=== PATIENT | female | born 1930 | race Caucasian/White ===

== ENCOUNTER 2017-07-02 13:15 | Inpatient (IN) | payer OTHER, MEDICARE ==
[~2017-07-02] VITALS: Ht 152.4 cm; Wt 46.7 kg
[~2017-07-02 13:15] MED LIST: AMIODARONE HCL200 M1 PO; ASPIRIN EC81 M1 PO; BUDESONIDE8.43 ML NASB; CILOSTAZOL50 M1 PO; COSOPT EYE DROP10 ML OU; FLEET ENEMA133 ML RC; GUAIFENESIN DM S5 ML PO; LATANOPROST2.5 ML OU; LIPITOR10 M1 PO; MILK OF MA400 MG/52 PO; MIRTAZAPINE15 M2 PO; NARCAN4 MG NAS; OMEPRAZOLE20 M2 PO; PREDNISONE2.5 M1 PO; SENNA8.6 M3 PO; SYNTHROID50 MCG PO
[2017-07-02] MEDS ORDERED: BETIMOL5 M1 OPH (14:28)
[2017-07-02] MEDS ORDERED: FLORASTOR250 M1 PO (14:29)
[2017-07-02] MEDS ORDERED: MELATONIN3 M4 PO (14:30)
[2017-07-02 14:52] LABS: ABSOLUTE BASOPHIL COUNT 0.2 /CUMM (0.0-0.2); ABSOLUTE EOSINOPHIL COUNT 0.1 /CUMM (0.0-0.7); ABSOLUTE GRANULOCYTE CT 7.7 /CUMM (1.4-6.5); ABSOLUTE LYMPH COUNT 3.7 /CUMM (1.2-3.4); ABSOLUTE MONOCYTE COUNT 0.4 /CUMM (0.10-0.60); BASOPHIL % 1.5 % (0.0-2.0); HEMATOCRIT 35.6 % (37-47); MEAN CORPUSCULAR HGB 29.1 PG (27.0-31.0); MEAN CORPUSCULAR HGB CONC 32.8 G/DL (33.0-37.0); MEAN CORPUSCULAR VOLUME 88.7 FL (81.0-99.0); MEAN PLATELET VOLUME 9.7 FL (7.4-10.4); PLATELET COUNT 170 /CUMM (130-400); RBC DISTRIBUTION WIDTH 16.9 % (11.5-14.5); RED BLOOD CELL CT 4.01 /CUMM (4.20-5.40); WHITE BLOOD CELL COUNT 12.1 /CUMM (4.8-10.8)
[2017-07-02 15:22] LABS: GRANULOCYTE % 63.6 % (42.2-75.2)
--- NOTE | 2017-07-02 15:25 | ED GENERAL ADULT ---
History of Present Illness General Chief Complaint: General Adult Stated Complaint: WEAKNESS Source: patient, W10 Exam Limitations: no limitations Vital Signs & Intake/Output Vital Signs & Intake/Output Vital Signs Date Time Temp Pulse Resp B/P B/P Pulse O2 O2 Flow FiO2 Mean Ox Delivery Rate 07/02 2042 97.0 72 18 118/60 96 Nasal 2.0L Cannula 07/02 2040 96 Room Air 2.0L 07/02 1827 96.8 60 18 115/57 99 Nasal 2.0L Cannula 07/02 1557 97.4 67 18 121/59 100 Nasal 2.0L Cannula 07/02 1459 96 Nasal 2.0L Cannula 07/02 1322 97.0 51 20 127/56 100 Nasal 2.0L Cannula Allergies Coded Allergies: NO KNOWN ALLERGIES (02/15/11) Reconcile Medications Amiodarone (Cordarone) 200 MG TABLET 1 TAB PO DAILY HEART (Reported) Aspirin (Ecotrin*) 81 MG TABLET.DR 1 TAB PO DAILY HEART/BLOOD (Reported) Atorvastatin Calcium (Lipitor) 10 MG TABLET 1 TAB PO DAILY CHOLESTEROL ( Reported) Cilostazol 50 MG TABLET 1 TAB PO BID BLOOD FLOW (Reported) Guaifenesin/Dextromethorphan (Guaifenesin Dm Syrup) 100 MG-10 MG/5 ML SYRUP 10 ML PO Q4H PRN COUGH/MUCUS (Reported) Latanoprost 0.005 % DROPS 1 GTT OU DAILY BOTH EYES (Reported) Levothyroxine Sodium (Synthroid) 50 MCG TABLET 1 TAB PO DAILY AC THYROID ( Reported) Magnesium Hydroxide (Milk Of Magnesia) 400 MG/5 ML ORAL.SUSP 30 ML PO Q3D PRN CONSTIPATION (Reported) Melatonin 3 MG TABLET 1 TAB PO QPM SLEEP (Reported) Mirtazapine 15 MG TABLET 1 TAB PO QPM UNKNOWN (Reported) Na Phos,M-B/Na Phos,Di-Ba (Fleet Enema) 19 GRAM-7 GRAM/118 ML ENEMA 1 E RC DAILY PRN CONSTIPATION (Reported) Naloxone HCl (Narcan) 4 MG/ACTUATION SPRAY 4 MG EDVIN AD PRN OPIOID INDUCED RESP. DEPRESSIO (Reported) Omeprazole 20 MG CAPSULE.DR 1 CAP PO DAILY GI (Reported) Prednisone 2.5 MG TABLET 1 TAB PO DAILY STEROID (Reported) Saccharomyces Boulardii (Florastor) 250 MG CAPSULE 1 CAP PO BID GI (Reported) Timolol (Betimol) 0.5 % DROPS 1 GTT OPH BID EYE (Reported) Triage Note: 86F DONI FROM [facility] WITH C/O WEAKNESS/FATIGUE/ABNORMAL LABS RECEIVING IVF AT [facility]. PATIENT ALERT/ORIENTED/NO PAIN Triage Nurses Notes Reviewed? yes HPI: 86yoF with Afib, hypothyroidism, HLD, GERD, Fe/Folate deficiencies and allergic rhnitis, brought here by her usp for poor feeding, weakness, fatigue and abnormal labs. Per W10, there was elevation in renal labs and so patient was started on D51/2NS at a total of 4L from 06/26 to 07/02. There was no improvement seen in serial labs. She has become more lethargic and started vomiting this afternoon. She had 2small BMs this morning. She also reports associated nausea and vomiting today. Patient herself reports loss of appetite, weight loss but no mental or memory changes. She denies any pain, fevers, but endorses chills. She is on ASA, Remeron, Naloxone, lipitor, prednisone, timolok, amiodarone, omeprazole, synthroid, melatonin and cilostazol. (Duran Cardenas) Past History Travel History Traveled to [place] past 21 day No Medical History Any Pertinent Medical History? see below for history Neurological: CVA Cardiovascular: AFIB, CAD, hyperlipidemia Gastrointestinal: constipation, GERD Musculoskeletal: rheumatoid arthritis Endocrine: hypothyroidism Other Medical Hx: Rheumatoid arthritis Surgical History Surgical History: appendectomy Psychosocial History Who do you live with Daughter Services at Home None What is your primary language Austrian Tobacco Use: Never used ETOH Use: denies use Illicit Drug Use: denies illicit drug use Family History Hx Contributory? Yes (Duran Cardenas) Review of Systems Review of Systems Constitutional: Reports: chills, weakness. Denies: diaphoresis, fever, malaise. EENTM: Reports: no symptoms. Respiratory: Reports: no symptoms. Cardiovascular: Reports: no symptoms. GI: Reports: no symptoms. Genitourinary: Reports: no symptoms. Musculoskeletal: Reports: see HPI. Skin: Reports: dryness. Neurological/Psychological: Reports: weakness. Denies: confusion, headache. Hematologic/Endocrine: Reports: bruising. Denies: bleeding. Immunologic/Allergic: Reports: no symptoms. (Duran Cardenas) Physical Exam Physical Exam General Appearance: alert, awake, cachetic Head: evidence of injury Eyes: Bilateral: normal appearance, PERRL. Neck: full range of motion Respiratory: normal breath sounds Cardiovascular: regular rate/rhythm Peripheral Pulses: 2+ radial (R), 2+ radial (L) Gastrointestinal: normal bowel sounds Extremities: no edema Skin: intact, warm/dry, ecchymosis Comments: Patient cachectic, slow in speech but very alert, A&Ox4. REst of exam significant for skin dryness, poor skin turgor, dry mucosal surfaces Core Measures ACS in differential dx? Yes CVA/TIA Diagnosis: No Sepsis Present: Yes Sepsis Focused Exam Completed? Yes (Opare-Sean STUDENT,Duran) Progress Differential Diagnoses I considered the following diagnoses in my evaluation of the patient: [ Malignancy, nephrotoxicity, starvation, cachexia, sepsis, UTI] Plan of Care: Orders Procedure Date/time Status XRY-CHEST XRAY, TWO VIEWS 07/02 2140 Active Add-on Test (ER Only) 07/02 1531 Active URINALYSIS 07/02 1531 Complete MISTAKE 07/02 1529 Active TSH REFLEX 07/02 1517 Complete TOTAL TRIODOTHYROXINE 07/02 1517 Complete FREE T4 07/02 1517 Complete TROPONIN LEVEL 07/02 1339 Complete COMPREHENSIVE METABOLIC PANEL 07/02 1339 Complete CBC WITHOUT DIFFERENTIAL 07/02 1339 Complete EKG 07/02 1339 Active Current Medications Sig/Delphien Start time Last Medication Dose Stop Time Status Admin Sodium Chloride 1,000 ML ONCE ONE 07/02 2014 AC 07/02 (Normal Saline 0.9%) 07/03 0254 2039 Laboratory Tests 07/02/17 1635: Urine Color YEL, Urine Clarity CLDY H, Urine pH 6.0, Ur Specific Brewer 1.025, Urine Protein 100 H, Urine Ketones NEG, Urine Nitrite NEG, Urine Bilirubin NEG, Urine Urobilinogen 0.2, Ur Leukocyte Esterase MOD H, Ur Microscopic SEDIMENT EXAMINED, Urine RBC 15-25 H, Urine WBC > 75 H, Ur Epithelial Cells RARE, Urine Bacteria FEW H, Micro UA Comment MORE INFO: H, Urine Hemoglobin LARGE H, Urine Glucose NEG 07/02/17 1517: Anion Gap 13, Estimated GFR 10 L, BUN/Creatinine Ratio 23.0, Glucose 113 H, Calcium 7.8 L, Total Bilirubin 0.5, AST 36, ALT 34, Alkaline Phosphatase 367 H , Troponin I 0.03, Total Protein 5.4 L, Albumin 2.1 L, Globulin 3.3, Albumin/ Globulin Ratio 0.6 L, Free T4 1.93, Total T3 0.41 L, TSH &T3 &Free T4 Intrp 9.820 H 07/02/17 1445: CBC w Diff NO MAN DIFF REQ, RBC 4.01 L, MCV 88.7, MCH 29.1, MCHC 32.8 L, RDW 16.9 H, MPV 9.7, Gran % 63.6, Lymphocytes % 30.3, Monocytes % 3.6, Eosinophils % 1.0, Basophils % 1.5, Absolute Granulocytes 7.7 H, Absolute Lymphocytes 3.7 H, Absolute Monocytes 0.4, Absolute Eosinophils 0.1, Absolute Basophils 0.2 Patient with weakness and a broad differential. Work up will begin with urinalysis, CMP, CBC, TSH, CXR. If renal function remains high, will consider renal US. 3:59PM CMP labs resulted. Cr 4.3 w/ BUN/Cr ratio >20, likely pre-renal injury. This is consistent w/ patient's exam of skin dryness, poor skin turgor, dry mucosal surfaces. Patient will require more resuscitation. Considering patient has failed outpatient resuscitation, patient will need to be admitted for gentle hydration (albeit more aggressive than 4L in 6days) and close monitoring. Nephrotoxic meds to be avoided. Patient will need renal imaging However, not all labs have returned. Once all labs result, patient will be signed out to admission team by Dr. Bobo. Care will be completely taken over by Dr. Bobo at this time. Initial ED [facility] Diagnostic Imaging: Discussed w/RAD: Ultrasound. Radiology Impression: PATIENT: SELAM VO PRESENT AGE: 86 PATIENT ACCOUNT NO: [id number] : 30 LOCATION: [facility] ORDERING PHYSICIAN: Alejandro Bobo MD SERVICE DATE: 07/02/178502 EXAM TYPE : US - US-RENAL/KIDNEY EXAMINATION: RENAL ULTRASOUND CLINICAL INFORMATION: Worsening renal function. COMPARISON: Abdominal pelvic CT from 12/25/2016. TECHNIQUE: Real-time imaging of the kidneys and bladder. FINDINGS: RIGHT KIDNEY: There is no nephrolithiasis. There is diffuse renal cortical thinning. There is mild pelviectasis and upper pole caliectasis. The right kidney measures 7.9 cm. LEFT KIDNEY: There is neither hydronephrosis nor nephrolithiasis. There is mild diffuse renal cortical thinning. There is a likely cyst within the lower pole measuring approximately 10 mm. The left kidney measures 7.7 cm. BLADDER: The urinary bladder is partially filled with a trabeculated bladder. OTHER: There is ascites noted within the right upper quadrant. There is a moderate left pleural effusion identified. There is also free fluid within the left upper quadrant. IMPRESSION: Right greater than left bilateral renal cortical thinning. Mild right pelviectasis and upper pole caliectasis. No nephrolithiasis within either kidney. Trabeculated urinary bladder which is partially filled. Abdominal ascites and left pleural effusion. DICTATED BY: Pedro Villagran MD DATE/TIME DICTATED:07/02/171818 CLIENT SUPPORT COORDINATOR:ISRAEL DATE/TIME TRANSCRIBED:1818 CONFIDENTIAL, DO NOT COPY WITHOUT APPROPRIATE AUTHORIZATION. < Electronically signed in Other Vendor System> SIGNED BY: Pedro Villagran MD 07/02/171824 Comments: 07/02/2017 8:13:37 PM I have updated Yvonne on her test results. She is without specific complaint at this time. (Jihan BLANCO,Alejandro Cortez) Departure Departure Condition: Stable Referrals: Tamar BLANCO,Pearl Roberson (PCP/Family) Departure Forms: Customer Survey General Discharge Information ([facility] Duran ARECHIGA) Departure Disposition: STILL A PATIENT Clinical Impression Primary Impression: JULES (acute kidney injury) Secondary Impressions: UTI (urinary tract infection) Qualifiers: Urinary tract infection type: site unspecified Hematuria presence: with hematuria Qualified Codes: N39.0 - Urinary tract infection, site not specified; R31.9 - Hematuria, unspecified Admission Note Spoke With: Elvira Grimes MD Documentation of Exam: Documentation of any treatments & extenuating circumstances including Concerns Regarding Discharge (functional status, medication knowledge or non-compliance, living conditions, etc.) that warrant an admission rather than observation: Patient has evidence of an acute kidney injury along with a urinary tract infection. She has been treated with 4 L of IV fluid as an outpatient and yet her renal functions continue to worsen. She has failed outpatient management and is therefore a poor candidate for continued outpatient treatment. This is now complicated by the presence of a urinary tract infection. Given the patient 's advanced age and medical comorbidities she is now at risk of sepsis, overwhelming infection and mortality. I feel she now requires hospitalization for more aggressive management with IV fluids and close clinical monitoring. Vital signs and intake and output should be recorded. BUN and creatinine should be monitored for signs of improvement. If patient's renal functions do not improve then nephrology and/or urology consultation should be considered. Serial urinalyses should be obtained and if patient's urinary tract infection does not seem to respond to initial antibiotic coverage, infectious disease consultation should be considered. Given this I feel this patient will require a multiple day hospitalization. (Jihan BLANCO,Alejandro Cortez) Critical Care Note Critical Care Note Critical Care Time: 30-74 min (Jihan BLANCO,Alejandro Cortez)
--- NOTE | 2017-07-02 18:25 | ULTRASOUND REPORT ---
EXAMINATION: RENAL ULTRASOUND CLINICAL INFORMATION: Worsening renal function. COMPARISON: Abdominal pelvic CT from 12/25/2016. TECHNIQUE: Real-time imaging of the kidneys and bladder. FINDINGS: RIGHT KIDNEY: There is no nephrolithiasis. There is diffuse renal cortical thinning. There is mild pelviectasis and upper pole caliectasis. The right kidney measures 7.9 cm. LEFT KIDNEY: There is neither hydronephrosis nor nephrolithiasis. There is mild diffuse renal cortical thinning. There is a likely cyst within the lower pole measuring approximately 10 mm. The left kidney measures 7.7 cm. BLADDER: The urinary bladder is partially filled with a trabeculated bladder. OTHER: There is ascites noted within the right upper quadrant. There is a moderate left pleural effusion identified. There is also free fluid within the left upper quadrant. IMPRESSION: Right greater than left bilateral renal cortical thinning. Mild right pelviectasis and upper pole caliectasis. No nephrolithiasis within either kidney. Trabeculated urinary bladder which is partially filled. Abdominal ascites and left pleural effusion.
--- NOTE | 2017-07-02 22:27 | History & Physical ---
Jose BLANCO,[facility] 07/02/17 5176: General Information and HPI MD Statement: I have seen and personally examined SELAM VO and documented this H&P. The patient is a 86 year old F who presented with a patient stated chief complaint of [n/v/diarrhea]. Source of Information: patient History of Present Illness: 86-year-old female past medical history of bilateral renal stenosis, Tricuspid stenosis, paroxysmal A. fib, rheumatoid arthritis, CAD S/P stent, HLD, hypothyroidism, CVA, GERD presenting for diarrhea, urinary incontinence, UTI, and vomiting. The patient states that she has been having diarrhea for 2 and half weeks. States that she was also informed by Dr. herrera that she had a UTI/ renal infection. States that she's been having IV fluids for the past 4 days supplementation. However the patient vomited at noon today was feeling nauseous. She states that she is been having increased bowel movements with more than 10 bowel movements per day on certain days. States that the last bowel movement was yesterday afternoon. States that her symptoms were getting better and now worse. Since that bowel movements are brownish yellow without any mucus or blood in his loose/watery. She states that she's been having decreased appetite at this time. She denies any headaches, fevers, chills, chest pain, shortness without abdominal pain, any sick contacts. The patient states that her last colonoscopy was 20 years ago and states that there were no issues. Allergies/Medications Allergies: Coded Allergies: NO KNOWN ALLERGIES (02/15/11) Past History Travel History Traveled to [place] past 21 day No Medical History Neurological: CVA Cardiovascular: AFIB, CAD, hyperlipidemia Gastrointestinal: constipation, GERD Musculoskeletal: rheumatoid arthritis Endocrine: hypothyroidism Other Medical Hx: Rheumatoid arthritis Surgical History Surgical History: appendectomy Past Family/Social History Psychosocial History Services at Home: None ETOH Use: denies use Illicit Drug Use: denies illicit drug use Review of Systems Review of Systems Constitutional: Reports: see HPI. GI: Reports: see HPI, changes in stool. Genitourinary: Reports: see HPI (urinary incontience). Exam & Diagnostic Data Last 24 Hrs of Vital Signs/I&O Vital Signs Date Time Temp Pulse Resp B/P B/P Pulse O2 O2 Flow FiO2 Mean Ox Delivery Rate 07/03 0559 96.9 60 16 116/49 99 Nasal 2.0L Cannula 07/03 0332 96 Nasal 2.0L Cannula 07/02 2212 128/58 07/023 97.0 72 18 118/60 96 Nasal 2.0L Cannula 07/02 2040 96 Room Air 2.0L 07/02 1827 96.8 60 18 115/57 99 Nasal 2.0L Cannula 07/02 1557 97.4 67 18 121/59 100 Nasal 2.0L Cannula 07/02 1459 96 Nasal 2.0L Cannula 07/02 1322 97.0 51 20 127/56 100 Nasal 2.0L Cannula Intake & Output 07/03 0800 07/03 0000 07/02 1600 Intake Total Output Total 70 180 Balance -70 -180 Output, Urine 70 180 Patient 93 lb Weight Weight Reported by Patient Measurement Method Physical Exam General Appearance Alert, Oriented X3, Cooperative, No Acute Distress Skin left forehead chronic discoloration HEENT dry oral mucosa Cardiovascular diastolic murmur Lungs Clear to Auscultation, Normal Air Movement Abdomen Normal Bowel Sounds, Soft, No Tenderness, mildly stiff abd upon palpation Extremities 2+ radial pulses Last 24 Hrs of Labs/Delmer: Laboratory Tests 07/03/17 0554: Anion Gap 11, Estimated GFR 10 L, BUN/Creatinine Ratio 23.8, Troponin I 0.04, CBC w Diff MAN DIFF ORDERED, RBC 3.55 L, MCV 89.1, MCH 29.3, MCHC 32.8 L, RDW 16.4 H, MPV 9.2, Segmented Neutrophils 66, Lymphocytes 28, Monocytes 4, Basophils 2, Platelet Estimate ADEQUATE, Polychromasia 1+, Hypochromic- Microcytic 1+, Poikilocytosis 2+, Ovalocytes 1+, Bruce Cells 1+, Fld Total RBCs Counted 100 07/03/17 0031: Troponin I 0.04 07/02/17 1635: Ur Eosinophil Smear Pending 07/02/17 1635: Urine Color YEL, Urine Clarity CLDY H, Urine pH 6.0, Ur Specific [place] 1.025, Urine Protein 100 H, Urine Ketones NEG, Urine Nitrite NEG, Urine Bilirubin NEG, Urine Urobilinogen 0.2, Ur Leukocyte Esterase MOD H, Ur Microscopic SEDIMENT EXAMINED, Urine RBC 15-25 H, Urine WBC > 75 H, Ur Epithelial Cells RARE, Urine Bacteria FEW H, Micro UA Comment MORE INFO: H, Urine Hemoglobin LARGE H, Urine Glucose NEG 07/02/17 1635: Ur Random Creatinine 76.4, Ur Random Sodium 26 L, Ur Random Potassium 33.2, Fraction Sodium Excret 1.0 07/02/17 1517: Anion Gap 13, Estimated GFR 10 L, BUN/Creatinine Ratio 23.0, Glucose 113 H, Calcium 7.8 L, Total Bilirubin 0.5, GGT 510 H, AST 36, ALT 34, Alkaline Phosphatase 367 H, Troponin I 0.03, Total Protein 5.4 L, Albumin 2.1 L, Globulin 3.3, Albumin/Globulin Ratio 0.6 L, Free T4 1.93, Total T3 0.41 L, TSH &T3 &Free T4 Intrp 9.820 H 07/02/17 1445: CBC w Diff NO MAN DIFF REQ, RBC 4.01 L, MCV 88.7, MCH 29.1, MCHC 32.8 L, RDW 16.9 H, MPV 9.7, Gran % 63.6, Lymphocytes % 30.3, Monocytes % 3.6, Eosinophils % 1.0, Basophils % 1.5, Absolute Granulocytes 7.7 H, Absolute Lymphocytes 3.7 H, Absolute Monocytes 0.4, Absolute Eosinophils 0.1, Absolute Basophils 0.2 Microbiology 07/039 URINE ROUT: Urine Culture - COLB 07/02 2338 URINE ROUT: Urine Culture - COLB 07/02 2324 STOOL: Cryptosporidium Antigen - COLB 07/02 2324 STOOL: Giardia Antigen (DELMER) - COLB 07/02 2324 STOOL: Clostridium difficile Toxin A & B - COLB 07/02 2324 STOOL: Yersinia Culture - COLB 07/02 2324 STOOL: Stool Culture - COLB 07/02 1634 URINE ROUT: Urine Culture - RECD Assessment/Plan Assessment: A: 86-year-old female past medical history of bilateral renal stenosis, Tricuspid stenosis, paroxysmal A. fib, rheumatoid arthritis, CAD S/P stent, HLD, hypothyroidism, CVA, GERD presenting for diarrhea, urinary incontinence, UTI, and vomiting. P: #Diarrhea -monitor I/Os -Follow-up stool studies #junctional rhythm on ekg Troponins 0.03, .04, .04 -Serial troponin and EKG -Cardiology consult -Echocardiogram #JULES on CKD Cr 4.2-4.8 (baseline 3.0) Pt is incontinent of urine Has bilateral renal artery stenosis -Serial bladder scans as patient refuses Menard -Follow-up urine culture lites, eosinophils -Nephrology consult -Consider vascular consult if recommended by nephrology #UTI -Continue ceftriaxone -Follow-up panculture #hypothyrodism Elevated tsh -consider endo consult or increase levothyroxine -cont levothyropxine #elevated alp ALP and GGT elevated -cont to monitor #insomnia -cont Mirtazapine/ Melatonin #glaucoma -cont Latanoprost/timolol #hld -cont Atorvastatin #RA -cont Prednisone #paraxysymbal afib -cont Aspirin/ amiodarone #gerd -cont omeprazole #DVT prophylaxis -heparin subq #DNRI DNI As Ranked By This Provider Problem List: 1. Elevated alkaline phosphatase level 2. Hypothyroid 3. JULES (acute kidney injury) 4. UTI (urinary tract infection) 5. EKG abnormality 6. Diarrhea Core Measures/Misc (01/20) Acute Coronary Syndrome ACS Diagnosis: No Congestive Heart Failure Congestive Heart Failure Diagnosis No Cerebrovascular Accident CVA/TIA Diagnosis: No VTE (View Protocol) VTE Risk Factors Acute Medical Illness No Mechanical VTE Prophylaxis d/t Other No VTE Pharm Prophylaxis d/t NA PharmProphylax ordered Sepsis (View protocol) Sepsis Present: No Marie Cervantes 07/02/178: General Information and HPI Allergies/Medications Home Med list Amiodarone (Cordarone) 200 MG TABLET 1 TAB PO DAILY HEART (Reported) Aspirin (Ecotrin*) 81 MG TABLET.DR 1 TAB PO DAILY HEART/BLOOD (Reported) Atorvastatin Calcium (Lipitor) 10 MG TABLET 1 TAB PO DAILY CHOLESTEROL ( Reported) Cilostazol 50 MG TABLET 1 TAB PO BID BLOOD FLOW (Reported) Guaifenesin/Dextromethorphan (Guaifenesin Dm Syrup) 100 MG-10 MG/5 ML SYRUP 10 ML PO Q4H PRN COUGH/MUCUS (Reported) Latanoprost 0.005 % DROPS 1 GTT OU DAILY BOTH EYES (Reported) Levothyroxine Sodium (Synthroid) 50 MCG TABLET 1 TAB PO DAILY AC THYROID ( Reported) Magnesium Hydroxide (Milk Of Magnesia) 400 MG/5 ML ORAL.SUSP 30 ML PO Q3D PRN CONSTIPATION (Reported) Melatonin 3 MG TABLET 1 TAB PO QPM SLEEP (Reported) Mirtazapine 15 MG TABLET 0.5 TAB PO QPM APPETITE (Reported) Na Phos,M-B/Na Phos,Di-Ba (Fleet Enema) 19 GRAM-7 GRAM/118 ML ENEMA 1 E RC DAILY PRN CONSTIPATION (Reported) Naloxone HCl (Narcan) 4 MG/ACTUATION SPRAY 4 MG EDVIN AD PRN OPIOID INDUCED RESP. DEPRESSIO (Reported) Omeprazole 20 MG CAPSULE.DR 1 CAP PO DAILY GI (Reported) Prednisone 2.5 MG TABLET 1 TAB PO DAILY RA (Reported) Saccharomyces Boulardii (Florastor) 250 MG CAPSULE 1 CAP PO BID GI (Reported) Timolol (Betimol) 0.5 % DROPS 1 GTT OPH BID EYE (Reported) Resident Review Statement Resident Statement: examined this patient, discussed with fashion styling intern, agreed with fashion styling intern, discussed with family, reviewed EMR data (avail), discussed with nursing , discussed with case mgmt, reviewed images, amended to note Other Findings: 87-year-old female with a past medical history of A. fib, [place] status post PCI hypothyroidism, hyperlipidemia, GERD, rheumatoid arthritis iron/folate deficiencies brought in by nursing facility for decreased by mouth intake, weakness fatigue and abnormal labs. According to the W-[facility], her renal panel was off as started on D51/2NS at a total of 4L from 06/26 to 07/02. There was no improvement seen in serial labs. She has become more lethargic and started vomiting this afternoon. Speaking with the patient reveals that she's been having diarrhea for almost 2 weeks now. States that was on an average about 10 bowel movements on a daily basis. She apparently had blood work done that showed that her kidney function had worsened. There is also concern that she may have had a urinary tract infection? Apparently she was given IV fluids and her symptoms didn't get better. She also endorses being more lethargic and states that this morning had an episode of emesis that was nonbloody. She denies any burning sensation when she micturates and doesn't endorse urinary frequency. She denies any fevers, chills, headache, chest pain, shortness of breath, nausea, vomiting. She states that her diarrhea was loose, midway between being watery versus loose. Denies any blood or mucus in it. Vitals at the time of admission blood pressure 118/60, respiratory rate of 18, pulse 72, afebrile saturating 96% on 2 L of oxygen via nasal cannula. On physical exam she is alert, oriented times 1. HEENT revealed dry mucous membranes. Cardiovascular exam pertinent for a diastolic murmur, normal S1, S2. Auscultation of the chest revealed crepitus at the left lung base. Abdominal exam pertinent for an abdominal was slightly firm, mildly distended with normal bowel sounds in all 4 quadrants. Examination of the lower extremities did not reveal any edema, patient did have a stage II ulcer on her back. Labs pertinent for leukocytosis with a white blood cell count 12,100, normocytic anemia with an H&H of 11.7/35.6 and a platelet count 170,000. Serum chemistries pertinent for sodium of 141, hyperkalemia with a potassium of 5.2, a low bicarbonate of 11, anion gap of 13, BUN 19 and creatinine of 4.3 baseline creatinine around 1.8-2. Serum glucose 113, calcium 7.8. LFTs pertinent for total bili 0.5, AST/L2 36/34, alkaline phosphatase of 367, first set of troponin 0.03. T3 was 0.41 TSH 9.8; pT4 1.93. UA cloudy, positive for proteins, moderate amount of leukocyte esterase, more than 75 white blood cells. Renal ultrasound showed right greater than left bilateral renal cortical thickening, mild right Mild right pelviectasis and upper pole caliectasis. No nephrolithiasis within either kidney. Trabeculated urinary bladder which is partially filled. Abdominal ascites and left pleural effusion. EKG heart rate of 54, questionable accelerated junctional rhythm with an old left bundle branch block, low voltage, normal axis no ST-T changes. QTC was 464. Chest x-ray: Retrocardiac opacification with obscuration of the left hemidiaphragm. The appearance is concerning for a left lower lobe infiltrate. A small left pleural effusion cannot be excluded. Last echo showed an EF of 55-60%. The left ventricular chamber size is normal with borderline to mild left ventricular hypertrophy and disproportionate thickening of the upper interventricular septum (DUST). The ejection fraction is normal. Abnormal septal motion is present due to the presence of pulmonary hypertensi In the ER patient received a bolus of normal saline thousand milligrams 1 and ceftriaxone thousand milligrams IV 1. Assessment and plan Admit patient to telemetry given junctional rhythm #JULES Differentials at this point include obstructive uropathy given history of bilateral hydronephrosis and ureteric stent placements, with an element of prerenal as a team secondary to dehydration Hydrate with normal saline at 75 miles per hour Continue to monitor strict I's and O's Nephrology consultation a.m. as patient does have a history of renal artery stenosis. We'll consult them and get their opinion as to whether we should get vascular and mold for stent placements. Meanwhile avoid nephrotoxic agents Follow-up urine lites #Hypothyroidism Consider increasing levothyroxine 75 MCG daily In the setting off being on amiodarone secondary to its toxicity Of note her TSH is 9.8 #Hyperkalemia In the setting of renal insufficiency Follow-up repeat BP at 6 AM after hydration with IV fluids #Diarrhea Send for stool culture, stool for C. difficile toxin, ova and parasites and crypto #Urinary tract infection She already received IV ceftriaxone in the ER. We'll continue on ceftriaxone thousand milligrams daily Follow-up urine culture #Junctional arrhythmia Continue to trend troponins and EKG Echocardiogram in a.m. Cardiology consult in a.m. with Dr. Pond #Rheumatoid arthritis Continue prednisone 2.5 mg daily by mouth #Decreased by mouth intake Continue mirtazapine 7.5 mg at bedtime #Peripheral vascular disease Continue on cilostazol 50 mg twice a day by mouth #A. fib Continue amiodarone 200 mg daily DVT prophylaxis On heparin 5000 international unit 3 times a day subcutaneous Diet Heart healthy CODE STATUS DNR/DNI Elvira Grimes 07/03/17 0522: Attending MD Review Statement Attending Statement Attending MD Statement: examined this patient, discuss w/resident/PA/SYRUPER, agreed w/resident/PA/SYRUPER, reviewed EMR data (avail), reviewed images, amended to note Attending Assessment/Plan: CC: Elevated creatinine PMH: Tricuspid stenosis, paroxysmal A. fib, rheumatoid arthritis, CAD S/P stent, HLD, hypothyroidism, CVA, GERD According to patient she has been having diarrhea since last 2 and half weeks, at 10 bowel movement per day, watery, nonbloody. She was started on IV fluids at [facility] and according to chart patient received 4 L of D5 1/2NS from Jun 26 to . Patient had serial labs done and her creatinine was persistently elevated so patient was sent to ER. Today patient appeared more lethargic to staff in facility. According to patient she felt nauseous and had 1 episode of vomiting today. She had been having decreased appetite, urinary incontinence but denies any sick contacts, URI symptoms, chest pain, palpitations, chest tightness, abdominal pain, leg swellings, dizziness or loss of consciousness. She states that she fell forward and hit her head approximately 3 days back from which she had bruise on her forehead. But at that time she does not recall if she lost consciousness or felt dizzy. Patient complains of urinary burning. Vitals: Afebrile, pulse in 60s, RR 18, blood pressure 121/59, saturating well on 2 L nasal cannula. On exam: A O 3, cooperative, no acute distress, neck supple, JVD normal, no lymphadenopathy, mucosa dry, no focal neurological deficit, no dependent edema, no obvious skin rashes or inflammation, bruise on for head on left side, left hand deformity, CVS: S1-S2, RRR, 2/6 pasasternal diastolic murmur. RS: Clear to auscultate bilaterally. Abdomen: Soft, NT, ND, bowel sounds present. Renal ultrasound: Right greater than left bilateral renal cortical thinning. Mild right pelviectasis and upper pole caliectasis. No nephrolithiasis within either kidney. Trabeculated urinary bladder which is partially filled. Abdominal ascites and left pleural effusion. CXR: Retrocardiac opacification with obscuration of the left hemidiaphragm. The appearance is concerning for a left lower lobe infiltrate. A small left pleural effusion cannot be excluded. Recommendation is for a followup chest series to be obtained following treatment and/or resolution of symptoms to assure resolution of this appearance. Assessment and plan 86 year old female with multiple comorbidities was sent to ER from [facility] for elevated creatinine. Patient had been having diarrhea since last 2 and half weeks, watery, at time : 10 per day. She denies any abdominal cramping but had an episode of vomiting today with nausea. She appeared more lethargic to staff in [facility]. Patient was being treated with IV fluids in [facility] and labs weren't repeated today which showed persistently elevated creatinine so patient was sent to ER. On examination she has small bruise on left side of her forehead and patient states that she slumped over on the table while sitting but did not lose consciousness or felt dizzy before the fall. Abdomen is mildly distended but nontender, no significant peripheral edema or JVD. Patient has mild leukocytosis. Her creatinine is 4.3, significantly elevated as compared to 2.8 on June 28. Before that she had 1.8 of creatinine in November 2016. Potassium is 5.2 and has metabolic acidosis with bicarbonate of 11. This could be acute kidney injury on chronic kidney disease secondary to dehydration. This could be progression of chronic kidney disease itself. Etiology is unclear but patient had CT angiogram runoff in November 2016 when she was noted to have bilateral severe renal artery stenosis and severe bilateral femoropopliteal tibial vessel disease. Given her acidosis secondary to acute kidney injury along with mildly elevated potassium she would require telemetry monitoring. Furthermore she had episode of " slumped over" , which would require telemetry monitoring. ECG shows junctional rhythm versus artifact. JULES versus CKD requires further evaluation. Obstruction is ruled out with renal ultrasound + Acute kidney injury on chronic kidney disease + UTI cystitis + Chronic diarrhea + History of Tricuspid stenosis, paroxysmal A. fib, rheumatoid arthritis, CAD S/ P stent, HLD, hypothyroidism, CVA, GERD - Admit to telemetry - Continuous telemetry monitoring - Strict I's and O's - Bladder scan - Urine electrolytes - Urine Eosinophils - 2-D echocardiogram - Normal saline 75 mL per hour for 1 more liter - Patient may require bicarbonate supplementation, if no improvement with IV fluids - Nephrology consult - Consider vascular consult for bilateral severe renal artery stenosis if recommended by stone lathe operator - Obtain stool studies including C. difficile - Continue IV ceftriaxone for UTI - Follow up urine culture - OT PT evaluation - Continue all her home medications - Cardiology consult in a.m. : ? Junctional rhythm - DVT prophylaxis
--- NOTE | 2017-07-02 22:50 | RADIOLOGY REPORT ---
EXAMINATION: CHEST 1 VIEW CLINICAL INFORMATION: Pleural effusion. COMPARISON: 12/25/2016. TECHNIQUE: An AP view of the chest is provided. FINDINGS: The cardiac silhouette is stable. The mediastinal and hilar contours are unremarkable. There are no pneumothoraces. There is retrocardiac opacification with obscuration of the left hemidiaphragm. The osseous structures are stable. IMPRESSION: Retrocardiac opacification with obscuration of the left hemidiaphragm. The appearance is concerning for a left lower lobe infiltrate. A small left pleural effusion cannot be excluded. Recommendation is for a followup chest series to be obtained following treatment and/or resolution of symptoms to assure resolution of this appearance.
--- NOTE | 2017-07-03 05:24 | Admission Certification ---
Admission Certification Certification Statement - As attending physician, I certify that at the time of - admission, based on clinical presentation, severity of - symptoms, need for further diagnostic testing and - therapeutic interventions, and risk of adverse outcomes - without in-hospital treatment, in my clinical assessment, - this patient requires an acute hospital stay for a minimum - of two nights or longer. I have also considered psychsocial - factors such as support system, advanced age, financial - issues, cognitive issues, and failed out-patient treatments, - past re-admission history, safety of patient, and lack of - compliance as applicable. Specific rationale supporting this admission is: acute kidney injury on chronic kidney disease
[2017-07-03 06:07] LABS: HEMATOCRIT 31.6 % (37-47); MEAN CORPUSCULAR HGB 29.3 PG (27.0-31.0); MEAN CORPUSCULAR HGB CONC 32.8 G/DL (33.0-37.0); MEAN CORPUSCULAR VOLUME 89.1 FL (81.0-99.0); MEAN PLATELET VOLUME 9.2 FL (7.4-10.4); PLATELET COUNT 132 /CUMM (130-400); RBC DISTRIBUTION WIDTH 16.4 % (11.5-14.5); RED BLOOD CELL CT 3.55 /CUMM (4.20-5.40); WHITE BLOOD CELL COUNT 13.5 /CUMM (4.8-10.8)
--- NOTE | 2017-07-03 07:16 | PN- Housestaff ---
Antonio BLANCO,[facility] 07/03/17 0716: Subjective Follow-up For: Jules on CKD ?? UTI/cystitis Metabolic acidosis Chronic Diarrhea Junctional rhythm on EKG Elevated alkaline phosphatase and GGT Tele-Events Since Last Visit: No overnight events noted Subjective: Patient lying comfortably in bed, daughter at bedside and according to her she feels better compared to yesterday. Denies any chest pain, palpitations, shortness of breath, abdominal pain, or any urinary symptoms. Stools were formed this morning compared to before. Review of Systems Constitutional: Reports: malaise, weakness. EENTM: Reports: no symptoms. Cardiovascular: Reports: no symptoms. Respiratory: Reports: no symptoms. Gastrointestinal: Reports: diarrhea. Genitourinary: Reports: no symptoms. Musculoskeletal: Reports: no symptoms. Skin: Reports: no symptoms. Neurological/Psychological: Reports: no symptoms. Hematologic/Endocrine: Reports: no symptoms. Immunologic/Allergic: Reports: no symptoms. Objective Last 24 Hrs of Vital Signs/I&O Vital Signs Date Time Temp Pulse Resp B/P B/P Pulse O2 O2 Flow FiO2 Mean Ox Delivery Rate 07/03 1350 90/40 07/03 1236 97.4 68 18 80/40 93 Room Air 07/03 1041 98.2 88 18 136/88 07/03 1040 98.2 88 18 136/88 99 Nasal 2.0L Cannula 07/03 0559 96.9 60 16 116/49 99 Nasal 2.0L Cannula 07/03 0332 96 Nasal 2.0L Cannula 07/02 2212 128/58 07/02 2043 97.0 72 18 118/60 96 Nasal 2.0L Cannula 07/02 2040 96 Room Air 2.0L 07/02 1827 96.8 60 18 115/57 99 Nasal 2.0L Cannula 07/02 1557 97.4 67 18 121/59 100 Nasal 2.0L Cannula Intake & Output 07/03 1600 07/03 0800 07/03 0000 Intake Total 500 Output Total 70 70 180 Balance 430 -70 -180 Intake, IV 500 Output, Urine 70 70 180 Patient 98 lb Weight Weight Estimated Measurement Method Physical Exam General Appearance: Alert, Oriented X3, Cooperative, No Acute Distress Skin: No Rashes, No Breakdown Cardiovascular: Regular Rate, Normal S1, Normal S2 Lungs: Clear to Auscultation, Normal Air Movement Abdomen: Normal Bowel Sounds, Soft, No Tenderness Extremities: No Clubbing, No Cyanosis, No Edema, slightly cool to touch Current Medications: Current Medications Sig/Delphine Start time Last Medication Dose Route Stop Time Status Admin Amiodarone HCl 200 MG DAILY 07/03 1000 AC 07/03 PO 1041 Aspirin Buffered 81 MG DAILY 07/03 1000 AC 07/03 PO 1041 Atorvastatin Calcium 10 MG 1700 07/03 1700 AC PO Ceftriaxone Sodium 1,000 MG Q24H 07/03 2030 AC IV Ceftriaxone Sodium 0 .STK-MED ONE 07/02 2033 DC .ROUTE Ceftriaxone Sodium 1,000 MG ONCE ONE 07/02 2014 DC 07/02 IV 07/02 2015 203 Cilostazol 50 MG BID 07/02 232 AC 07/03 PO 1041 Dextrose/Sodium 1,000 ML Q13H 07/03 1200 AC Chloride IV Heparin Sodium 0 .STK-MED ONE 07/03 0608 DC (Porcine) .ROUTE Heparin Sodium 5,000 UNIT Q8 07/03 0600 AC 07/03 (Porcine) SC 0615 Hydrocortisone 50 MG Q8 07/03 2200 AC Sodium Succinate IV Hydrocortisone 100 MG ONE ONE 07/03 1400 DC Sodium Succinate IV 07/03 1401 Latanoprost 1 GTT AT BEDTIME 07/03 2200 AC OPH Levothyroxine Sodium 0.05 MG DAILY AC 07/03 0700 AC 07/03 PO 0757 Melatonin 3 MG QPM 07/03 2200 AC PO Mirtazapine 7.5 MG QPM 07/03 2200 AC PO Omeprazole 20 MG DAILY AC 07/03 0700 AC 07/03 PO 0615 Omeprazole 0 .STK-MED ONE 07/03 0608 DC PO Prednisone 2.5 MG DAILY 07/03 1000 DC 07/03 PO 1041 Sodium Chloride 500 ML BOLUS ONE 07/03 1330 DC IV 07/03 1429 Sodium Chloride 1,000 ML Q13H 07/02 2330 AC 07/03 IV 07/04 0129 0011 Sodium Chloride 1,000 ML ONCE ONE 07/02 2014 DC 07/02 IV 07/03 0254 2039 Timolol Maleate 1 GTT BID 07/02 2324 AC 07/03 OPH 1041 Last 24 Hrs of Lab/Delmer Results Last 24 Hrs of Labs/Mics: Laboratory Tests 07/03/17 0554: Anion Gap 11, Estimated GFR 10 L, BUN/Creatinine Ratio 23.8, Troponin I 0.04, Cortisol AM Sample 7.8, CBC w Diff MAN DIFF ORDERED, RBC 3.55 L, MCV 89.1, MCH 29.3, MCHC 32.8 L, RDW 16.4 H, MPV 9.2, Segmented Neutrophils 66, Lymphocytes 28, Monocytes 4, Basophils 2, Platelet Estimate ADEQUATE, Polychromasia 1+, Hypochromic-Microcytic 1+, Poikilocytosis 2+, Ovalocytes 1+, Antelope Cells 1+, Fld Total RBCs Counted 100 07/03/17 0031: Troponin I 0.04 07/02/17 1635: Ur Eosinophil Smear OCC EOS SEEN 07/02/17 163: Urine Color YEL, Urine Clarity CLDY H, Urine pH 6.0, Ur Specific [place] 1.025, Urine Protein 100 H, Urine Ketones NEG, Urine Nitrite NEG, Urine Bilirubin NEG, Urine Urobilinogen 0.2, Ur Leukocyte Esterase MOD H, Ur Microscopic SEDIMENT EXAMINED, Urine RBC 15-25 H, Urine WBC > 75 H, Ur Epithelial Cells RARE, Urine Bacteria FEW H, Micro UA Comment MORE INFO: H, Urine Hemoglobin LARGE H, Urine Glucose NEG 07/02/17 163: Ur Random Creatinine 76.4, Ur Random Sodium 26 L, Ur Random Potassium 33.2, Fraction Sodium Excret 1.0 Microbiology 07/03 145 BLOOD: Blood Culture - ORD 07/03 145 BLOOD: Blood Culture - ORD 07/03 0049 URINE ROUT: Urine Culture - CAN Cancelled: DUPLICATE 07/02 2338 URINE ROUT: Urine Culture - CAN Cancelled: DUPLICATE 07/02 2324 STOOL: Cryptosporidium Antigen - CAN Cancelled: SPECIMEN NOT RECEIVED IN LABORATORY 07/02 2324 STOOL: Giardia Antigen (DELMER) - CAN Cancelled: SPECIMEN NOT RECEIVED IN LABORATORY 07/02 2324 STOOL: Clostridium difficile Toxin A & B - CAN Cancelled: SPECIMEN NOT RECEIVED IN LABORATORY 07/02 2324 STOOL: Yersinia Culture - CAN Cancelled: SPECIMEN NOT RECEIVED IN LABORATORY 07/02 2324 STOOL: Stool Culture - CAN Cancelled: SPECIMEN NOT RECEIVED IN LABORATORY 07/02 1634 URINE ROUT: Urine Culture - RECD Assessment/Plan Assessment: 86-year-old female past medical history of bilateral renal stenosis, Tricuspid stenosis, paroxysmal A. fib, rheumatoid arthritis, CAD S/P stent, HLD, hypothyroidism, CVA, GERD presenting for diarrhea, urinary incontinence, UTI, and vomiting. Problem list JULES on CKD ?? UTI/cystitis Metabolic acidosis Chronic Diarrhea Junctional rhythm on EKG Elevated alkaline phosphatase and GGT - JULES likely secondary to dehydration . Obstruction ruled out and CAT scan. Patient likely a candidate for dialysis in the future but risks outweigh the benefits. - Continue IV fluids. Patient was given 500 mV of normal saline because of persistent hypertension, also patient was given stress dose of hydrocortisone per endocrinology as the patient is on prednisone at home for rheumatoid arthritis. Random cortisol level is 7.8. Will continue hydrocortisone 50 mg every 8 from tomorrow. - Continue IV ceftriaxone for presumed UTI. - Urine culture pending - We'll check lactic acid level and order blood cultures given patient has metabolic acidosis and is hypotensive despite IV fluid hydration. - Continue current dose of levothyroxine. -Follow-up stool studies - CT abdomen pelvis for elevated alkaline phosphatase and GGT. - Echocardiogram pending - Vascular surgery consult for ischemic right foot. DVT prophylaxis; subcutaneous heparin Patient is DNRI DNI. Problem List: 1. Elevated alkaline phosphatase level 2. Hypothyroid 3. UTI (urinary tract infection) 4. JULES (acute kidney injury) 5. EKG abnormality 6. Diarrhea 7. Rheumatoid arthritis Pain Ratin Pain Location: None Pain Goal: Remain pain free Pain Plan: None Tomorrow's Labs & Rationales: BEP(JULES on CKD) [facility] 07/03/17 1545: Attending MD Review Statement Attending Statement Attending MD Statement: examined this patient, discuss w/resident/PA/CHIMNEY REPAIRER, agreed w/resident/PA/CHIMNEY REPAIRER, discussed with family, reviewed EMR data (avail), discussed with nursing, discussed with case mgmt, amended to note Attending Assessment/Plan: Patient seen and examined. Lying in bed and very frail looking. Daughter present at the bedside. She complains of generalized weakness. She complains of right lower extremity pain which is chronic for her. She has had no diarrhea while being here in the hospital. She denies chest pain or shortness of breath or palpitations. She is afebrile. Blood pressure was stable on arrival however has been trending into the 80s and 90s. General appearance: Frail HEENT: Anicteric, mild pallor Neck: No JVD. Heart: S1-S2 regular with 2/6 systolic murmur. Lungs: Fair entry bilaterally with no added sounds. Abdomen: Soft, nontender with normal bowel sounds. Extremities: No pedal edema bilaterally. Right lower extremity is cool to touch. She has a bluish discoloration on the fifth digit of the right foot. Skin: Intact with no rashes. November 15, 2016. CT RUNOFF ANGIOGRAM 1. Possible bladder calculi. 2. There is a right-sided double-J ureteral catheter. 3. There are bilateral severe renal artery stenoses. 4. There is severe bilateral qsfyyoy-jqtanfmaj-mmvvav vessel disease. Problems: 1. Acute on chronic kidney disease 2. Leukocytosis; with concern for underlying infection. 3. Abnormal EKG. 4. Ischemic right lower extremity. 5. Adrenal insufficiency. Plan: -Current renal disease appears to be secondary to volume depletion from prolonged diarrhea at the halfway. Patient also likely has some underlying infectious process and he is hypotensive which may lead to an ATN. There is also concern for interstitial nephritis due to multiple antibiotic use. Nephrology input appreciated. The brief concise summary provided by the nephrology service ,of the outcomes of halfway resident who undergo dialysis, is appreciated. -Patient was started empirically on ceftriaxone and emergency room for presumed UTI. In view of her poor clinical state and leukocytosis we will continue current antibiotic therapy pending results of blood and urine cultures. -Patient is hypotensive. Volume depletion is certainly within differential. Also within the differential is an underlying infection. Patient's cortisol level is suboptimal giving her acute illness. She appears to have a component of adrenal insufficiency. She has been on prolonged steroid therapy. She has been given a stress dose of hydrocortisone and will be continued on this over the next few days. -Patient also has an ischemic right foot. Apparently daughter reports that provider in the outpatient setting had recommended amputation of the right lower extremity back in the summer 2016. Daughter declined to move forward with this at the time. I did explain that this will need to be reconsidered. She is agreeable to hear the recommendations of the vascular surgery service. Consultation has been placed. Hold off vascular imaging for now pending evaluation by the vascular surgery service. -Obtain x-ray of the right foot to rule out underlying osteomyelitis. -Cardiology input appreciated regarding her abnormal EKG. Patient and daughter report that patient was taken off anticoagulation therapy in the past. Obtain echocardiogram.
--- NOTE | 2017-07-03 11:04 | Cons- Nephrology ---
General Information and HPI Consulting Request Date of Consult: 07/03/17 Requested By: Griselda Vila MD Reason for Consult: Acute kidney injury Source of Information: patient, family, old records Exam Limitations: no limitations History of Present Illness: This 86-year-old woman has a history of colitis, peptic ulcer disease, coronary artery disease requiring stents as well as chronic kidney disease. She now presents with 2 weeks worth of diarrhea. Because the diarrhea remains obscure. She had been laced on the number of medications the reason for which her daughter is not sure. She resides at [facility]. Her serum creatinine on June 26 was 3.0. When she presented to the emergency room, it was 4.2. She denies any dysuria or polyuria. That of which she complains is profuse diarrhea. She denies any fevers chills or rashes. She has not had any dysuria. They're not sure what antibiotics she has been receiving. She also has a history of myelodysplastic syndrome. She also has a history of severe peripheral vascular disease. Because of problems with her right lower extremity , a CT angiogram with runoff have been ordered last November. It is recommended to the patient and her family that she undergo an amputation presumably below knee of that right leg. The patient and daughter declined since they felt that since it was not bothering the patient they would not proceed with that surgery. She has not had any fevers or chills. There is been no rashes noted. Examining the record from [facility], I do not see which antibiotic she was receiving. Allergies/Medications Allergies: Coded Allergies: NO KNOWN ALLERGIES (02/15/11) Home Med List: Amiodarone (Cordarone) 200 MG TABLET 1 TAB PO DAILY HEART (Reported) Aspirin (Ecotrin*) 81 MG TABLET.DR 1 TAB PO DAILY HEART/BLOOD (Reported) Atorvastatin Calcium (Lipitor) 10 MG TABLET 1 TAB PO DAILY CHOLESTEROL ( Reported) Cilostazol 50 MG TABLET 1 TAB PO BID BLOOD FLOW (Reported) Guaifenesin/Dextromethorphan (Guaifenesin Dm Syrup) 100 MG-10 MG/5 ML SYRUP 10 ML PO Q4H PRN COUGH/MUCUS (Reported) Latanoprost 0.005 % DROPS 1 GTT OU DAILY BOTH EYES (Reported) Levothyroxine Sodium (Synthroid) 50 MCG TABLET 1 TAB PO DAILY AC THYROID ( Reported) Magnesium Hydroxide (Milk Of Magnesia) 400 MG/5 ML ORAL.SUSP 30 ML PO Q3D PRN CONSTIPATION (Reported) Melatonin 3 MG TABLET 1 TAB PO QPM SLEEP (Reported) Mirtazapine 15 MG TABLET 0.5 TAB PO QPM APPETITE (Reported) Na Phos,M-B/Na Phos,Di-Ba (Fleet Enema) 19 GRAM-7 GRAM/118 ML ENEMA 1 E RC DAILY PRN CONSTIPATION (Reported) Naloxone HCl (Narcan) 4 MG/ACTUATION SPRAY 4 MG EDVIN AD PRN OPIOID INDUCED RESP. DEPRESSIO (Reported) Omeprazole 20 MG CAPSULE.DR 1 CAP PO DAILY GI (Reported) Prednisone 2.5 MG TABLET 1 TAB PO DAILY RA (Reported) Saccharomyces Boulardii (Florastor) 250 MG CAPSULE 1 CAP PO BID GI (Reported) Timolol (Betimol) 0.5 % DROPS 1 GTT OPH BID EYE (Reported) Current Medications: Current Medications Sig/Delphine Start time Last Medication Dose Route Stop Time Status Admin Amiodarone HCl 200 MG DAILY 07/03 1000 AC 07/03 PO 1041 Aspirin Buffered 81 MG DAILY 07/03 1000 AC 07/03 PO 1041 Atorvastatin Calcium 10 MG 1700 07/03 1700 AC PO Ceftriaxone Sodium 1,000 MG Q24H 07/03 2030 AC IV Ceftriaxone Sodium 0 .STK-MED ONE 07/02 2032 DC .ROUTE Ceftriaxone Sodium 1,000 MG ONCE ONE 07/02 2014 DC 07/02 IV 07/02 Cilostazol 50 MG BID 07/02 2322 AC 07/03 PO 1041 Heparin Sodium 0 .STK-MED ONE 07/03 0608 DC (Porcine) .ROUTE Heparin Sodium 5,000 UNIT Q8 07/03 0600 AC 07/03 (Porcine) SC 0615 Latanoprost 1 GTT AT BEDTIME 07/03 2200 AC OPH Levothyroxine Sodium 0.05 MG DAILY AC 07/03 0700 AC 07/03 PO 0757 Melatonin 3 MG QPM 07/03 2200 AC PO Mirtazapine 7.5 MG QPM 07/03 2200 AC PO Omeprazole 20 MG DAILY AC 07/03 0700 AC 07/03 PO 0615 Omeprazole 0 .STK-MED ONE 07/03 0608 DC PO Prednisone 2.5 MG DAILY 07/03 1000 AC 07/03 PO 1041 Sodium Chloride 1,000 ML Q13H 07/02 2330 AC 07/03 IV 07/04 0129 0011 Sodium Chloride 1,000 ML ONCE ONE 07/02 2014 DC 07/02 IV 07/03 0254 9 Timolol Maleate 1 GTT BID 07/02 2324 07/03 OPH 1041 Review of Systems Review of Systems Constitutional: Denies: chills, diaphoresis, fever. EENTM: Reports: nasal congestion. Denies: blurred vision, double vision, visual changes, hearing changes, epistaxis. Cardiovascular: Denies: chest pain, edema, orthopena, palpitations, peripheral edema. Respiratory: Denies: cough, hemoptysis, orthopnea, short of breath. GI: Reports: diarrhea, changes in stool. Denies: abdominal pain, constipation, melena, nausea, bloody stool, vomiting. Genitourinary: Denies: dysuria, frequency, hematuria, nocturia, pain, urgency. Musculoskeletal: Reports: joint pain. Skin: Denies: rash. Neurological/Psychological: Denies: headache, numbness, tingling, tonic-clonic seizures. Hematologic/Endocrine: Denies: bruising, bleeding, polyuria. Past History Travel History Traveled to [place] past 21 day No Medical History Neurological: CVA Cardiovascular: AFIB, CAD, hyperlipidemia, myocardial infarction, PVD Respiratory: NONE Gastrointestinal: colitis, constipation, GERD, peptic ulcer disease Hepatic: NONE Renal: nephrolithiasis, she had urinary obstruction in the past requiring placement of stents, she also had an episode of sepsis of urinary origin. This required transfer to the ICU., renal artery stenosis Musculoskeletal: rheumatoid arthritis (diagnosed in 1993), sciatica Psychiatric: NONE Endocrine: hypothyroidism Blood Disorders: anemia, biopsy-proven myelodysplastic syndrome Other Medical Hx: Rheumatoid arthritis Surgical History Surgical History: appendectomy, cataract removal, ureteral stent placement, multiple cardiac stents Psychosocial History Where Do You Live? Extended Care Facility Services at Home: None ETOH Use: denies use Illicit Drug Use: denies illicit drug use Exam & Diagnostic Data Vital Signs and I&O Vital Signs Date Time Temp Pulse Resp B/P B/P Pulse O2 O2 Flow FiO2 Mean Ox Delivery Rate 07/03 1041 98.2 88 18 136/88 07/03 0559 96.9 60 16 116/49 99 Nasal 2.0L Cannula 07/03 0332 96 Nasal 2.0L Cannula 07/02 2212 128/58 07/02 2042 97.0 72 18 118/60 96 Nasal 2.0L Cannula 07/02 204 96 Room Air 2.0L 07/02 1827 96.8 60 18 115/57 99 Nasal 2.0L Cannula 07/02 1557 97.4 67 18 121/59 100 Nasal 2.0L Cannula 07/02 1459 96 Nasal 2.0L Cannula 07/02 1322 97.0 51 20 127/56 100 Nasal 2.0L Cannula Intake & Output 07/03 1600 07/03 0400 07/02 1600 07/02 04007/01 040 Intake Total Output Total 250 Balance -250 Output, Urine 250 Patient 93 lb Weight Weight Reported by Patient Measurement Method Physical Exam General Appearance: well developed/nourished, no apparent distress, alert, awake , comfortable, cachetic, thin, she appears quite frail Head: atraumatic, normal appearance, contusions (she has what appears to be a c) Eyes: Bilateral: PERRL, EOMI, pale conjunctivae. Ears, Nose, Throat: normal pharynx, normal ENT inspection, hearing decreased Neck: normal inspection, supple, trachea mid line, no midline tenderness Respiratory: normal breath sounds, chest non-tender Cardiovascular: regular rate/rhythm Peripheral Pulses: 0 popliteal (R), 0 popliteal (L), 0 tibialis posterior (R), 0 tibialis posterior (L), 0 dorsalis pedis (R), 0 dorsalis pedis (L) Gastrointestinal: normal bowel sounds, soft, non-tender, no organomegaly, 2 paramedian scars which are well-healed and quite old Back: normal inspection Extremities: slow capillary refill, I could not feel pulses in either foot. The fifth digit of the right foot is bandaged. They had been advised by Dr. Salomon Feliz amputate the right leg. This was because of ischemic changes and poor runoff. She however is without any pain or worsening ulceration.this was after a CT angiogram with runoff performed last November.the feeling of the part of the family and the patient was that since the foot was not bothering her they did not think the surgery was necessary., numerous deformities related to the rheumatoid arthritis Neurologic/Psych: no motor/sensory deficits, oriented x 3 Cranial Nerves: normal hearing, normal speech Skin: intact, thin skin as one would see with years of prednisone use Results Pertinent Lab Results: Laboratory Tests 07/03 07/03 07/02 0554 0031 1635 Chemistry Sodium (137 - 145 mmol/L) 143 Potassium (3.5 - 5.1 mmol/L) 4.9 Chloride (98 - 107 mmol/L) 122 H Carbon Dioxide (22 - 30 mmol/L) 10 L Anion Gap (5 - 16) 11 BUN (7 - 17 mg/dL) 100 H Creatinine (0.5 - 1.0 mg/dL) 4.2 H Estimated GFR (>60 ml/min) 10 L BUN/Creatinine Ratio (7 - 25 %) 23.8 Troponin I (< 0.11 ng/ml) 0.04 0.04 Hematology CBC w Diff MAN DIFF ORDERED WBC (4.8 - 10.8 /CUMM) 13.5 H RBC (4.20 - 5.40 /CUMM) 3.55 L Hgb (12.0 - 16.0 G/DL) 10.4 L Hct (37 - 47 %) 31.6 L MCV (81.0 - 99.0 FL) 89.1 MCH (27.0 - 31.0 PG) 29.3 MCHC (33.0 - 37.0 G/DL) 32.8 L RDW (11.5 - 14.5 %) 16.4 H Plt Count (130 - 400 /CUMM) 132 MPV (7.4 - 10.4 FL) 9.2 Segmented Neutrophils (42.2 - 75.2 %) 66 Lymphocytes (20.5 - 51.1 %) 28 Monocytes (1.7 - 9.3 %) 4 Basophils (0.0 - 2.0 %) 2 Platelet Estimate (ADEQUATE) ADEQUATE Polychromasia 1+ Hypochromic-Microcytic 1+ Poikilocytosis 2+ Ovalocytes 1+ [place] Cells 1+ Other Body Source Fld Total RBCs Counted (%) 100 Urines Ur Eosinophil Smear Pending 07/02 07/02 1635 1635 Urines Urine Color (YEL,AMB,STR) YEL Urine Clarity (CLEAR) CLDY H Urine pH (5.0 - 8.0) 6.0 Ur Specific [place] (1.001 - 1.035) 1.025 Urine Protein (NEG,<30 MG/DL) 100 H Urine Ketones (NEG) NEG Urine Nitrite (NEG) NEG Urine Bilirubin (NEG) NEG Urine Urobilinogen (0.1 - 1.0 EU/dl) 0.2 Ur Leukocyte Esterase (NEG) MOD H Ur Microscopic SEDIMENT EXAMINED Urine RBC (0 - 5 /HPF) 15-25 H Urine WBC (0 - 2 /HPF) > 75 H Ur Epithelial Cells (NONE,FEW) RARE Urine Bacteria (NEG/NONE) FEW H Micro UA Comment MORE INFO: H Urine Hemoglobin (NEG) LARGE H Ur Random Creatinine (mg/dL) 76.4 Ur Random Sodium (30 - 90 mmol/L) 26 L Ur Random Potassium (mmol/L) 33.2 Fraction Sodium Excret (<1% %) 1.0 Urine Glucose (N MG/DL) NEG 07/02 07/02 1517 1445 Chemistry Sodium (137 - 145 mmol/L) 141 Potassium (3.5 - 5.1 mmol/L) 5.2 H Chloride (98 - 107 mmol/L) 117 H Carbon Dioxide (22 - 30 mmol/L) 11 L Anion Gap (5 - 16) 13 BUN (7 - 17 mg/dL) 99 H Creatinine (0.5 - 1.0 mg/dL) 4.3 H Estimated GFR (>60 ml/min) 10 L BUN/Creatinine Ratio (7 - 25 %) 23.0 Glucose (65 - 99 mg/dL) 113 H Calcium (8.4 - 10.2 mg/dL) 7.8 L Total Bilirubin (0.2 - 1.3 mg/dL) 0.5 GGT (12 - 43 U/L) 510 H AST (14 - 36 U/L) 36 ALT (9 - 52 U/L) 34 Alkaline Phosphatase (<127 U/L) 367 H Troponin I (< 0.11 ng/ml) 0.03 Total Protein (6.3 - 8.2 g/dL) 5.4 L Albumin (3.5 - 5.0 g/dL) 2.1 L Globulin (1.9 - 4.2 gm/dL) 3.3 Albumin/Globulin Ratio (1.1 - 2.2 %) 0.6 L Free T4 (0.85 - 1.93 ng/dL) 1.93 Total T3 (0.97 - 1.69 ng/mL) 0.41 L TSH &T3 &Free T4 Intrp (0.270 - 4.20 uIU/mL) 9.820 H Hematology CBC w Diff NO MAN DIFF REQ WBC (4.8 - 10.8 /CUMM) 12.1 H RBC (4.20 - 5.40 /CUMM) 4.01 L Hgb (12.0 - 16.0 G/DL) 11.7 L Hct (37 - 47 %) 35.6 L MCV (81.0 - 99.0 FL) 88.7 MCH (27.0 - 31.0 PG) 29.1 MCHC (33.0 - 37.0 G/DL) 32.8 L RDW (11.5 - 14.5 %) 16.9 H Plt Count (130 - 400 /CUMM) 170 MPV (7.4 - 10.4 FL) 9.7 Gran % (42.2 - 75.2 %) 63.6 Lymphocytes % (20.5 - 51.1 %) 30.3 Monocytes % (1.7 - 9.3 %) 3.6 Eosinophils % (0 - 5 %) 1.0 Basophils % (0.0 - 2.0 %) 1.5 Absolute Granulocytes (1.4 - 6.5 /CUMM) 7.7 H Absolute Lymphocytes (1.2 - 3.4 /CUMM) 3.7 H Absolute Monocytes (0.10 - 0.60 /CUMM) 0.4 Absolute Eosinophils (0.0 - 0.7 /CUMM) 0.1 Absolute Basophils (0.0 - 0.2 /CUMM) 0.2 Assessment/Plan Assessment/Recommendations Assessment: 1. Acute kidney injury. Her history would suggest that this is related to volume depletion with her daunting array of comorbidities. Her daughter reports that she looks better this morning than yesterday. At this point would favor checking a spot or random urine sodium as well as creatinine to calculate a fractional excretion of sodium. The other possibility, besides volume depletion caused by diarrhea, would be whether or not she is developed an interstitial nephritis related to the use of multiple antibiotics. This is not likely. Usually takes 10 days to weeks before the creatinine goes up. She does not have any evidence of a rash. The classic triad is fever or rash and eosinophilia for interstitial nephritis. Of note, fraction excretion of sodium is consistent with acute tubular necrosis rather than prerenal azotemia. I do not see that she was on any diuretics. 2. History of known coronary artery disease status post what one commercial loan underwriter described as being multiple coronary stents 3. Rheumatoid arthritis. She looks quite wasted and nearly bedbound. 4. History of paroxysmal atrial fibrillation 5. History of colitis. Given that history, this may need further this review of previous records. 6. Sciatica. 7. Renal artery stenosis. She denies any history of hypertension. Reviewing the meds on the W 10 she is not on any blood pressure medicines. Ifshetrulyhadsignificantrenalarterystenosis I would expect wildly difficult to control blood pressure on multiple medications. As it is there does not seem to be any. Recommendations: 1. Would continue with IV fluids. 2. Check strict I's and O's and daily weights 3. Check daily BMP 4. I did have the discussion with the daughter and the patient that given her age, given her frail health, if the dialysis need does arise that should not be placed on dialysis. One study showed that in a group of elderly, aged resonance of a longterm, those were randomized to a arm of the study involving hemodialysis versus conservative therapy and no dialysis initiation the ones who had conservative therapy live longer than in the dialytic cohort. The explanation for this is usually that the entire dialysis exercise not simply the treatments themselves prove to be quite burdensome for these patients. Specifically, the questions with regards to creation and maintenance of access. The diet and everything else. This is thought to engender its own series of morbidities and events that lead ultimately to the demise of the patient. It is also observed that elderly patients seem to tolerate uremia much better than younger patients. I did not ask him specifically if they would accept dialysis, however, I suggested that this would not be a good idea. 5 continue with IV fluids.
[2017-07-03 12:36] VITALS: BP 80/40
--- NOTE | 2017-07-03 12:48 | Cons- Endocrinology ---
General Information and HPI Consulting Request Date of Consult: 07/03/17 Requested By: medical team Reason for Consult: Abnormal thyroid test Source of Information: patient, family, old records Exam Limitations: poor historian History of Present Illness: This 86-year-old woman was transferred to the hospital because of her deteriorating medical condition. According to her daughter she has not been able to walk for the past 4 weeks. She has become very weak. She also appeared to be dehydrated and was having trouble speaking because her mouth was so dry. [facility] she was on [facility] antibiotics for fever. She then developed diarrhea. The patient has a past history of hypothyroidism and was on levothyroxine 50 mcg prior to admission. She is also on amiodarone. She has some chronic renal disease. She has known ischemic right foot. Was seen by Dr. Elmore and a below- the-knee amputation was suggested but the patient's daughter refused that treatment because she realized she would no longer be able to walk. Allergies/Medications Allergies: Coded Allergies: NO KNOWN ALLERGIES (02/15/11) Home Med List: Amiodarone (Cordarone) 200 MG TABLET 1 TAB PO DAILY HEART (Reported) Aspirin (Ecotrin*) 81 MG TABLET.DR 1 TAB PO DAILY HEART/BLOOD (Reported) Atorvastatin Calcium (Lipitor) 10 MG TABLET 1 TAB PO DAILY CHOLESTEROL ( Reported) Cilostazol 50 MG TABLET 1 TAB PO BID BLOOD FLOW (Reported) Guaifenesin/Dextromethorphan (Guaifenesin Dm Syrup) 100 MG-10 MG/5 ML SYRUP 10 ML PO Q4H PRN COUGH/MUCUS (Reported) Latanoprost 0.005 % DROPS 1 GTT OU DAILY BOTH EYES (Reported) Levothyroxine Sodium (Synthroid) 50 MCG TABLET 1 TAB PO DAILY AC THYROID ( Reported) Magnesium Hydroxide (Milk Of Magnesia) 400 MG/5 ML ORAL.SUSP 30 ML PO Q3D PRN CONSTIPATION (Reported) Melatonin 3 MG TABLET 1 TAB PO QPM SLEEP (Reported) Mirtazapine 15 MG TABLET 0.5 TAB PO QPM APPETITE (Reported) Na Phos,M-B/Na Phos,Di-Ba (Fleet Enema) 19 GRAM-7 GRAM/118 ML ENEMA 1 E RC DAILY PRN CONSTIPATION (Reported) Naloxone HCl (Narcan) 4 MG/ACTUATION SPRAY 4 MG EDVIN AD PRN OPIOID INDUCED RESP. DEPRESSIO (Reported) Omeprazole 20 MG CAPSULE.DR 1 CAP PO DAILY GI (Reported) Prednisone 2.5 MG TABLET 1 TAB PO DAILY RA (Reported) Saccharomyces Boulardii (Florastor) 250 MG CAPSULE 1 CAP PO BID GI (Reported) Timolol (Betimol) 0.5 % DROPS 1 GTT OPH BID EYE (Reported) Current Medications: Current Medications Sig/Delphine Start time Last Medication Dose Route Stop Time Status Admin Amiodarone HCl 200 MG DAILY 07/03 1000 AC 07/03 PO 1041 Aspirin Buffered 81 MG DAILY 07/03 1000 AC 07/03 PO 1041 Atorvastatin Calcium 10 MG 1700 07/03 1700 AC PO Ceftriaxone Sodium 1,000 MG Q24H 07/03 2030 AC IV Ceftriaxone Sodium 0 .STK-MED ONE 07/02 203 DC .ROUTE Ceftriaxone Sodium 1,000 MG ONCE ONE 07/02 2014 DC 07/02 IV 07/02 2015 203 Cilostazol 50 MG BID 07/02 2322 AC 07/03 PO 1041 Dextrose/Sodium 1,000 ML Q13H 07/03 1200 AC Chloride IV Heparin Sodium 0 .STK-MED ONE 07/03 0608 DC (Porcine) .ROUTE Heparin Sodium 5,000 UNIT Q8 07/03 0600 AC 07/03 (Porcine) SC 0615 Latanoprost 1 GTT AT BEDTIME 07/03 2200 AC OPH Levothyroxine Sodium 0.05 MG DAILY AC 07/03 0700 AC 07/03 PO 0757 Melatonin 3 MG QPM 07/03 2200 AC PO Mirtazapine 7.5 MG QPM 07/03 2200 AC PO Omeprazole 20 MG DAILY AC 07/03 0700 AC 07/03 PO 0615 Omeprazole 0 .STK-MED ONE 07/03 0608 DC PO Prednisone 2.5 MG DAILY 07/03 1000 AC 07/03 PO 1041 Sodium Chloride 1,000 ML Q13H 07/02 2330 AC 07/03 IV 07/04 0129 0011 Sodium Chloride 1,000 ML ONCE ONE 07/02 2014 DC 07/02 IV 07/03 025 2039 Timolol Maleate 1 GTT BID 07/02 2324 AC 07/03 OPH 1041 Past History Travel History Traveled to [place] past 21 day No Medical History Neurological: CVA Cardiovascular: AFIB, CAD, hyperlipidemia, myocardial infarction, PVD Respiratory: NONE Gastrointestinal: colitis, constipation, GERD, peptic ulcer disease Hepatic: NONE Renal: nephrolithiasis, she had urinary obstruction in the past requiring placement of stents she also had an episode of sepsis of urinary origin. This required transfer to the ICU. renal artery stenosis Musculoskeletal: rheumatoid arthritis (diagnosed in 1993), sciatica Psychiatric: NONE Endocrine: hypothyroidism Blood Disorders: anemia, biopsy-proven myelodysplastic syndrome Other Medical Hx: Rheumatoid arthritis Surgical History Surgical History: appendectomy, cataract removal, ureteral stent placement multiple cardiac stents Psychosocial History Where Do You Live? Extended Care Facility Services at Home: None ETOH Use: denies use Illicit Drug Use: denies illicit drug use Exam & Diagnostic Data Last 24 Hrs of Vital Signs/I&O Vital Signs Date Time Temp Pulse Resp B/P B/P Pulse O2 O2 Flow FiO2 Mean Ox Delivery Rate 07/03 1236 97.4 68 18 80/40 93 Room Air 07/03 1041 98.2 88 18 136/88 07/03 1040 98.2 88 18 136/88 99 Nasal 2.0L Cannula 07/03 0559 96.9 60 16 116/49 99 Nasal 2.0L Cannula 07/03 0332 96 Nasal 2.0L Cannula 07/02 2212 128/58 07/02 2043 97.0 72 18 118/60 96 Nasal 2.0L Cannula 07/02 2040 96 Room Air 2.0L 07/02 1827 96.8 60 18 115/57 99 Nasal 2.0L Cannula 07/02 1557 97.4 67 18 121/59 100 Nasal 2.0L Cannula 07/02 1459 96 Nasal 2.0L Cannula 07/02 1322 97.0 51 20 127/56 100 Nasal 2.0L Cannula Intake & Output 07/03 1600 07/03 0800 07/03 0000 Intake Total Output Total 70 70 180 Balance -70 -70 -180 Output, Urine 70 70 180 Patient 98 lb Weight Weight Estimated Measurement Method Vital Signs Date Time Temp Pulse Resp B/P B/P Pulse O2 O2 Flow FiO2 Mean Ox Delivery Rate 07/03 1236 97.4 68 18 80/40 93 Room Air 07/03 1041 98.2 88 18 136/88 07/03 1040 98.2 88 18 136/88 99 Nasal 2.0L Cannula 07/03 0559 96.9 60 16 116/49 99 Nasal 2.0L Cannula 07/03 0332 96 Nasal 2.0L Cannula 07/02 2212 128/58 07/02 204 97.0 72 18 118/60 96 Nasal 2.0L Cannula 07/02 2040 96 Room Air 2.0L 07/02 1827 96.8 60 18 115/57 99 Nasal 2.0L Cannula 07/02 1557 97.4 67 18 121/59 100 Nasal 2.0L Cannula 07/02 1459 96 Nasal 2.0L Cannula 07/02 1322 97.0 51 20 127/56 100 Nasal 2.0L Cannula Intake & Output 07/03 1600 07/03 0800 07/03 0000 Intake Total Output Total 70 70 180 Balance -70 -70 -180 Output, Urine 70 70 180 Patient 98 lb Weight Weight Estimated Measurement Method Physical Exam General Appearance: alert, awake, cachetic, thin Labs/Delmer Results: Laboratory Tests 07/03 07/03 07/02 0554 0031 1635 Chemistry Sodium (137 - 145 mmol/L) 143 Potassium (3.5 - 5.1 mmol/L) 4.9 Chloride (98 - 107 mmol/L) 122 H Carbon Dioxide (22 - 30 mmol/L) 10 L Anion Gap (5 - 16) 11 BUN (7 - 17 mg/dL) 100 H Creatinine (0.5 - 1.0 mg/dL) 4.2 H Estimated GFR (>60 ml/min) 10 L BUN/Creatinine Ratio (7 - 25 %) 23.8 Troponin I (< 0.11 ng/ml) 0.04 0.04 Hematology CBC w Diff MAN DIFF ORDERED WBC (4.8 - 10.8 /CUMM) 13.5 H RBC (4.20 - 5.40 /CUMM) 3.55 L Hgb (12.0 - 16.0 G/DL) 10.4 L Hct (37 - 47 %) 31.6 L MCV (81.0 - 99.0 FL) 89.1 MCH (27.0 - 31.0 PG) 29.3 MCHC (33.0 - 37.0 G/DL) 32.8 L RDW (11.5 - 14.5 %) 16.4 H Plt Count (130 - 400 /CUMM) 132 MPV (7.4 - 10.4 FL) 9.2 Segmented Neutrophils (42.2 - 75.2 %) 66 Lymphocytes (20.5 - 51.1 %) 28 Monocytes (1.7 - 9.3 %) 4 Basophils (0.0 - 2.0 %) 2 Platelet Estimate (ADEQUATE) ADEQUATE Polychromasia 1+ Hypochromic-Microcytic 1+ Poikilocytosis 2+ Ovalocytes 1+ [place] Cells 1+ Other Body Source Fld Total RBCs Counted (%) 100 Urines Ur Eosinophil Smear (NONE) OCC EOS SEEN 07/02 07/02 1635 1635 Urines Urine Color (YEL,AMB,STR) YEL Urine Clarity (CLEAR) CLDY H Urine pH (5.0 - 8.0) 6.0 Ur Specific [place] (1.001 - 1.035) 1.025 Urine Protein (NEG,<30 MG/DL) 100 H Urine Ketones (NEG) NEG Urine Nitrite (NEG) NEG Urine Bilirubin (NEG) NEG Urine Urobilinogen (0.1 - 1.0 EU/dl) 0.2 Ur Leukocyte Esterase (NEG) MOD H Ur Microscopic SEDIMENT EXAMINED Urine RBC (0 - 5 /HPF) 15-25 H Urine WBC (0 - 2 /HPF) > 75 H Ur Epithelial Cells (NONE,FEW) RARE Urine Bacteria (NEG/NONE) FEW H Micro UA Comment MORE INFO: H Urine Hemoglobin (NEG) LARGE H Ur Random Creatinine (mg/dL) 76.4 Ur Random Sodium (30 - 90 mmol/L) 26 L Ur Random Potassium (mmol/L) 33.2 Fraction Sodium Excret (<1% %) 1.0 Urine Glucose (N MG/DL) NEG 07/02 07/02 1517 1445 Chemistry Sodium (137 - 145 mmol/L) 141 Potassium (3.5 - 5.1 mmol/L) 5.2 H Chloride (98 - 107 mmol/L) 117 H Carbon Dioxide (22 - 30 mmol/L) 11 L Anion Gap (5 - 16) 13 BUN (7 - 17 mg/dL) 99 H Creatinine (0.5 - 1.0 mg/dL) 4.3 H Estimated GFR (>60 ml/min) 10 L BUN/Creatinine Ratio (7 - 25 %) 23.0 Glucose (65 - 99 mg/dL) 113 H Calcium (8.4 - 10.2 mg/dL) 7.8 L Total Bilirubin (0.2 - 1.3 mg/dL) 0.5 GGT (12 - 43 U/L) 510 H AST (14 - 36 U/L) 36 ALT (9 - 52 U/L) 34 Alkaline Phosphatase (<127 U/L) 367 H Troponin I (< 0.11 ng/ml) 0.03 Total Protein (6.3 - 8.2 g/dL) 5.4 L Albumin (3.5 - 5.0 g/dL) 2.1 L Globulin (1.9 - 4.2 gm/dL) 3.3 Albumin/Globulin Ratio (1.1 - 2.2 %) 0.6 L Free T4 (0.85 - 1.93 ng/dL) 1.93 Total T3 (0.97 - 1.69 ng/mL) 0.41 L TSH &T3 &Free T4 Intrp (0.270 - 4.20 uIU/mL) 9.820 H Hematology CBC w Diff NO MAN DIFF REQ WBC (4.8 - 10.8 /CUMM) 12.1 H RBC (4.20 - 5.40 /CUMM) 4.01 L Hgb (12.0 - 16.0 G/DL) 11.7 L Hct (37 - 47 %) 35.6 L MCV (81.0 - 99.0 FL) 88.7 MCH (27.0 - 31.0 PG) 29.1 MCHC (33.0 - 37.0 G/DL) 32.8 L RDW (11.5 - 14.5 %) 16.9 H Plt Count (130 - 400 /CUMM) 170 MPV (7.4 - 10.4 FL) 9.7 Gran % (42.2 - 75.2 %) 63.6 Lymphocytes % (20.5 - 51.1 %) 30.3 Monocytes % (1.7 - 9.3 %) 3.6 Eosinophils % (0 - 5 %) 1.0 Basophils % (0.0 - 2.0 %) 1.5 Absolute Granulocytes (1.4 - 6.5 /CUMM) 7.7 H Absolute Lymphocytes (1.2 - 3.4 /CUMM) 3.7 H Absolute Monocytes (0.10 - 0.60 /CUMM) 0.4 Absolute Eosinophils (0.0 - 0.7 /CUMM) 0.1 Absolute Basophils (0.0 - 0.2 /CUMM) 0.2 Assessment/Plan Assessment/Plan I was asked to see this patient with regard to her abnormal thyroid function tests. The patient entered the hospital with weakness and apparently episodes of diarrhea and evidence of dehydration. Her TSH was mildly elevated at 9.8 with a free T4 of 1.93 and a total T3 of 0.41. The patient is on amiodarone. She was also on thyroid hormone replacement with levothyroxine 50 mcg daily prior to admission. She was [facility] in a [facility] at that time. With regard to the patient's thyroid I would continue her on the 50 mcg daily. Her main problem is with regard to acute on chronic renal insufficiency and also evidence of metabolic acidosis. I would check her lactic acid level. The patient also has evidence of an ischemic right foot. In view of her hypotension we should check her cortisol level. She needs to be hydrated carefully with IV fluids. Apparently there is evidence of ascites and a left pleural effusion. Cardiology evaluation is being done. Underlying malignancy should alsdo be ruled out. The patient also has an elevated white blood count or needs to be evaluated for sepsis. She needs to be pancultured. The patient's alk phos and GGT are markedly elevated. Patient needs a CT scan of her abdomen and chest without contrast Consult Acknowledgment - Thank you for your consult request.
--- NOTE | 2017-07-03 13:17 | Cons- Cardiology ---
General Information and HPI Consulting Request Date of Consult: 07/03/17 Requested By: Julito BLANCO,Griselda Reason for Consult: Abnormal EKG Source of Information: patient, old records Exam Limitations: no limitations History of Present Illness: The patient is an 86-year-old woman with a past medical history of myelodysplastic syndrome, chronic kidney disease, severe peripheral vascular disease, questionable bilateral renal artery stenosis, paroxysmal atrial fibrillation, coronary artery disease and prior CVA. She presents to our hospital with symptoms of nausea and emesis as well as diarrhea for a period of approximately 2 weeks. She was noted to have acute kidney injury as well as hyperkalemia. While in the ER, there was a question of possible junctional rhythm seen. From a cardiac standpoint, the patient otherwise denies current symptoms of chest pains palpitations nor dyspnea. She is however sedentary. On arrival, her initial potassium was 5.2. On further evaluation of her EKG, P waves are present; however, are of an abnormal axis. Previously, the patient had been seen by Scott Pond MD for her headache issues; however, had subsequently been seeing Dr. Darryl Castellano (as per daughter) Allergies/Medications Allergies: Coded Allergies: NO KNOWN ALLERGIES (02/15/11) Home Med List: Amiodarone (Cordarone) 200 MG TABLET 1 TAB PO DAILY HEART (Reported) Aspirin (Ecotrin*) 81 MG TABLET.DR 1 TAB PO DAILY HEART/BLOOD (Reported) Atorvastatin Calcium (Lipitor) 10 MG TABLET 1 TAB PO DAILY CHOLESTEROL ( Reported) Cilostazol 50 MG TABLET 1 TAB PO BID BLOOD FLOW (Reported) Guaifenesin/Dextromethorphan (Guaifenesin Dm Syrup) 100 MG-10 MG/5 ML SYRUP 10 ML PO Q4H PRN COUGH/MUCUS (Reported) Latanoprost 0.005 % DROPS 1 GTT OU DAILY BOTH EYES (Reported) Levothyroxine Sodium (Synthroid) 50 MCG TABLET 1 TAB PO DAILY AC THYROID ( Reported) Magnesium Hydroxide (Milk Of Magnesia) 400 MG/5 ML ORAL.SUSP 30 ML PO Q3D PRN CONSTIPATION (Reported) Melatonin 3 MG TABLET 1 TAB PO QPM SLEEP (Reported) Mirtazapine 15 MG TABLET 0.5 TAB PO QPM APPETITE (Reported) Na Phos,M-B/Na Phos,Di-Ba (Fleet Enema) 19 GRAM-7 GRAM/118 ML ENEMA 1 E RC DAILY PRN CONSTIPATION (Reported) Naloxone HCl (Narcan) 4 MG/ACTUATION SPRAY 4 MG EDVIN AD PRN OPIOID INDUCED RESP. DEPRESSIO (Reported) Omeprazole 20 MG CAPSULE.DR 1 CAP PO DAILY GI (Reported) Prednisone 2.5 MG TABLET 1 TAB PO DAILY RA (Reported) Saccharomyces Boulardii (Florastor) 250 MG CAPSULE 1 CAP PO BID GI (Reported) Timolol (Betimol) 0.5 % DROPS 1 GTT OPH BID EYE (Reported) Current Medications: Current Medications Sig/Delphine Start time Last Medication Dose Route Stop Time Status Admin Amiodarone HCl 200 MG DAILY 07/03 1000 AC 07/03 PO 1041 Aspirin Buffered 81 MG DAILY 07/03 1000 AC 07/03 PO 1041 Atorvastatin Calcium 10 MG 1700 07/03 1700 AC PO Ceftriaxone Sodium 1,000 MG Q24H 07/03 2030 AC IV Ceftriaxone Sodium 0 .STK-MED ONE 07/02 203 DC .ROUTE Ceftriaxone Sodium 1,000 MG ONCE ONE 07/02 2014 DC 07/02 IV 07/02 2015 203 Cilostazol 50 MG BID 07/02 2322 AC 07/03 PO 1041 Dextrose/Sodium 1,000 ML Q13H 07/03 1200 AC Chloride IV Heparin Sodium 0 .STK-MED ONE 07/03 0608 DC (Porcine) .ROUTE Heparin Sodium 5,000 UNIT Q8 07/03 0600 AC 07/03 (Porcine) SC 0615 Latanoprost 1 GTT AT BEDTIME 07/03 2200 AC OPH Levothyroxine Sodium 0.05 MG DAILY AC 07/03 0700 AC 07/03 PO 0757 Melatonin 3 MG QPM 07/03 2200 AC PO Mirtazapine 7.5 MG QPM 07/03 2200 AC PO Omeprazole 20 MG DAILY AC 07/03 0700 AC 07/03 PO 0615 Omeprazole 0 .STK-MED ONE 07/03 0608 DC PO Prednisone 2.5 MG DAILY 07/03 1000 AC 07/03 PO 1041 Sodium Chloride 1,000 ML Q13H 07/02 2330 AC 07/03 IV 07/04 0129 0011 Sodium Chloride 1,000 ML ONCE ONE 07/02 2014 DC 07/02 IV 07/03 0254 2039 Timolol Maleate 1 GTT BID 07/02 2324 AC 07/03 OPH 1041 Review of Systems Review of Systems: The review of systems is negative for chest pains, palpitations nor lightheadedness. Nausea as well as decreased by mouth intake and diarrhea is noted as above The remainder of the 14 point review of systems is noncontributory with the exception of above. Past History Travel History Traveled to [place] past 21 day No Medical History Blood Transfusion Hx: No Neurological: CVA Cardiovascular: AFIB, CAD, hyperlipidemia, myocardial infarction, PVD Respiratory: NONE Gastrointestinal: colitis, constipation, GERD, peptic ulcer disease Hepatic: NONE Renal: nephrolithiasis, she had urinary obstruction in the past requiring placement of stents she also had an episode of sepsis of urinary origin. This required transfer to the ICU. renal artery stenosis Musculoskeletal: rheumatoid arthritis (diagnosed in 1993), sciatica Psychiatric: NONE Endocrine: hypothyroidism Blood Disorders: anemia, biopsy-proven myelodysplastic syndrome Other Medical Hx: Rheumatoid arthritis Surgical History Surgical History: appendectomy, cataract removal, ureteral stent placement multiple cardiac stents Psychosocial History Where Do You Live? Extended Care Facility Services at Home: None Smoking Status: Never Smoked ETOH Use: denies use Illicit Drug Use: denies illicit drug use Exam & Diagnostic Data Vital Signs and I&O Vital Signs Date Time Temp Pulse Resp B/P B/P Pulse O2 O2 Flow FiO2 Mean Ox Delivery Rate 07/03 1236 97.4 68 18 80/40 93 Room Air 07/03 1041 98.2 88 18 136/88 07/03 1040 98.2 88 18 136/88 99 Nasal 2.0L Cannula 07/03 0559 96.9 60 16 116/49 99 Nasal 2.0L Cannula 07/03 0332 96 Nasal 2.0L Cannula 07/02 2212 128/58 07/02 2043 97.0 72 18 118/60 96 Nasal 2.0L Cannula 07/02 2040 96 Room Air 2.0L 07/02 1827 96.8 60 18 115/57 99 Nasal 2.0L Cannula 07/02 1557 97.4 67 18 121/59 100 Nasal 2.0L Cannula 07/02 1459 96 Nasal 2.0L Cannula 07/02 1322 97.0 51 20 127/56 100 Nasal 2.0L Cannula Intake & Output 07/03 1600 07/03 0800 07/03 0000 07/02 1600 07/02 0807/02 0000 Intake Total Output Total 70 70 180 Balance -70 -70 -180 Output, Urine 70 70 180 Patient 98 lb 93 lb Weight Weight Estimated Reported by Patient Measurement Method Physical Exam: General: Nontoxic, no apparent distress, frail. HEENT: Sclera and conjunctiva within normal limits, without xanthelasmas. Neck: Carotids 2+ without bruits. Respiratory: Clear to auscultation, air movement is good, without accessory respiratory muscle use. Heart: Regular rate and rhythm, 2-6 systolic ejection murmur at left sternal border, without JVD. Abdomen: Soft, nontender, no masses, normoactive bowel sounds. Extremities: Without clubbing, cyanosis, without edema, diminished peripheral pulses. Neuro: Nonfocal exam, strength, 5 out of 5 Skin: Within normal limits without lesions. Psych: Mood and affect: Normal Labs/Delemr Results: Laboratory Tests 07/03 07/03 07/02 0554 0031 1635 Chemistry Sodium (137 - 145 mmol/L) 143 Potassium (3.5 - 5.1 mmol/L) 4.9 Chloride (98 - 107 mmol/L) 122 H Carbon Dioxide (22 - 30 mmol/L) 10 L Anion Gap (5 - 16) 11 BUN (7 - 17 mg/dL) 100 H Creatinine (0.5 - 1.0 mg/dL) 4.2 H Estimated GFR (>60 ml/min) 10 L BUN/Creatinine Ratio (7 - 25 %) 23.8 Troponin I (< 0.11 ng/ml) 0.04 0.04 Hematology CBC w Diff MAN DIFF ORDERED WBC (4.8 - 10.8 /CUMM) 13.5 H RBC (4.20 - 5.40 /CUMM) 3.55 L Hgb (12.0 - 16.0 G/DL) 10.4 L Hct (37 - 47 %) 31.6 L MCV (81.0 - 99.0 FL) 89.1 MCH (27.0 - 31.0 PG) 29.3 MCHC (33.0 - 37.0 G/DL) 32.8 L RDW (11.5 - 14.5 %) 16.4 H Plt Count (130 - 400 /CUMM) 132 MPV (7.4 - 10.4 FL) 9.2 Segmented Neutrophils (42.2 - 75.2 %) 66 Lymphocytes (20.5 - 51.1 %) 28 Monocytes (1.7 - 9.3 %) 4 Basophils (0.0 - 2.0 %) 2 Platelet Estimate (ADEQUATE) ADEQUATE Polychromasia 1+ Hypochromic-Microcytic 1+ Poikilocytosis 2+ Ovalocytes 1+ [place] Cells 1+ Other Body Source Fld Total RBCs Counted (%) 100 Urines Ur Eosinophil Smear (NONE) OCC EOS SEEN 07/02 07/02 1635 1635 Urines Urine Color (YEL,AMB,STR) YEL Urine Clarity (CLEAR) CLDY H Urine pH (5.0 - 8.0) 6.0 Ur Specific [place] (1.001 - 1.035) 1.025 Urine Protein (NEG,<30 MG/DL) 100 H Urine Ketones (NEG) NEG Urine Nitrite (NEG) NEG Urine Bilirubin (NEG) NEG Urine Urobilinogen (0.1 - 1.0 EU/dl) 0.2 Ur Leukocyte Esterase (NEG) MOD H Ur Microscopic SEDIMENT EXAMINED Urine RBC (0 - 5 /HPF) 15-25 H Urine WBC (0 - 2 /HPF) > 75 H Ur Epithelial Cells (NONE,FEW) RARE Urine Bacteria (NEG/NONE) FEW H Micro UA Comment MORE INFO: H Urine Hemoglobin (NEG) LARGE H Ur Random Creatinine (mg/dL) 76.4 Ur Random Sodium (30 - 90 mmol/L) 26 L Ur Random Potassium (mmol/L) 33.2 Fraction Sodium Excret (<1% %) 1.0 Urine Glucose (N MG/DL) NEG 07/02 07/02 1517 1445 Chemistry Sodium (137 - 145 mmol/L) 141 Potassium (3.5 - 5.1 mmol/L) 5.2 H Chloride (98 - 107 mmol/L) 117 H Carbon Dioxide (22 - 30 mmol/L) 11 L Anion Gap (5 - 16) 13 BUN (7 - 17 mg/dL) 99 H Creatinine (0.5 - 1.0 mg/dL) 4.3 H Estimated GFR (>60 ml/min) 10 L BUN/Creatinine Ratio (7 - 25 %) 23.0 Glucose (65 - 99 mg/dL) 113 H Calcium (8.4 - 10.2 mg/dL) 7.8 L Total Bilirubin (0.2 - 1.3 mg/dL) 0.5 GGT (12 - 43 U/L) 510 H AST (14 - 36 U/L) 36 ALT (9 - 52 U/L) 34 Alkaline Phosphatase (<127 U/L) 367 H Troponin I (< 0.11 ng/ml) 0.03 Total Protein (6.3 - 8.2 g/dL) 5.4 L Albumin (3.5 - 5.0 g/dL) 2.1 L Globulin (1.9 - 4.2 gm/dL) 3.3 Albumin/Globulin Ratio (1.1 - 2.2 %) 0.6 L Free T4 (0.85 - 1.93 ng/dL) 1.93 Total T3 (0.97 - 1.69 ng/mL) 0.41 L TSH &T3 &Free T4 Intrp (0.270 - 4.20 uIU/mL) 9.820 H Hematology CBC w Diff NO MAN DIFF REQ WBC (4.8 - 10.8 /CUMM) 12.1 H RBC (4.20 - 5.40 /CUMM) 4.01 L Hgb (12.0 - 16.0 G/DL) 11.7 L Hct (37 - 47 %) 35.6 L MCV (81.0 - 99.0 FL) 88.7 MCH (27.0 - 31.0 PG) 29.1 MCHC (33.0 - 37.0 G/DL) 32.8 L RDW (11.5 - 14.5 %) 16.9 H Plt Count (130 - 400 /CUMM) 170 MPV (7.4 - 10.4 FL) 9.7 Gran % (42.2 - 75.2 %) 63.6 Lymphocytes % (20.5 - 51.1 %) 30.3 Monocytes % (1.7 - 9.3 %) 3.6 Eosinophils % (0 - 5 %) 1.0 Basophils % (0.0 - 2.0 %) 1.5 Absolute Granulocytes (1.4 - 6.5 /CUMM) 7.7 H Absolute Lymphocytes (1.2 - 3.4 /CUMM) 3.7 H Absolute Monocytes (0.10 - 0.60 /CUMM) 0.4 Absolute Eosinophils (0.0 - 0.7 /CUMM) 0.1 Absolute Basophils (0.0 - 0.2 /CUMM) 0.2 Assessment/Plan Assessment/Plan 86-year-old woman with a past medical history of myelodysplastic syndrome, chronic kidney disease, severe peripheral vascular disease, questionable bilateral renal artery stenosis, paroxysmal atrial fibrillation, coronary artery disease and prior CVA. She presents to our hospital with symptoms of nausea and emesis as well as diarrhea for a period of approximately 2 weeks. She was noted to have acute kidney injury as well as hyperkalemia. While in the ER, there was a question of possible junctional rhythm seen. Abnormal EKG: Low-voltage P waves as well as a possible abnormal P-wave axis is seen on the current EKG which may be secondary to the underlying hyperkalemia. At this time , we will continue an overall conservative course to her management. Hypokalemia managed as per the medical team as well as nephrology. A repeat EKG will be obtained following metabolic correction. Coronary artery disease: The patient has known coronary artery disease and has been stable from an ischemic standpoint. We will continue her outpatient management without changes. An overall conservative course will be continued. Atrial fibrillation: The patient has been maintained on amiodarone as an outpatient; however, has not been placed on anticoagulation. This may be secondary to her underlying myelodysplastic disease, and we will confirm with her primary fish filleter regarding the same. Given her comorbidities, an overall conservative course of management will be maintained. Thank you for allowing us to participate in the care of your patient. Please do not hesitate to contact us further with any questions. Sincerely, Curry Gonzalez MD [facility] Consult Acknowledgment - Thank you for your consult request.
--- NOTE | 2017-07-03 13:25 | PN- Student ---
Subjective Subjective: Patient was seen and examined this morning. She feels weak and is bed-bound. Says she moved her bowels 3 times yesterday, and they were soft. Denies any chest pain, palpitations, shortness of breath, or urinary symptoms. Objective Objective: Vital Signs Date Time Temp Pulse Resp B/P B/P Pulse O2 O2 Flow FiO2 Mean Ox Delivery Rate 07/03 1236 97.4 68 18 80/40 93 Room Air 07/03 1041 98.2 88 18 136/88 07/03 1040 98.2 88 18 13688 99 Nasal 2.0L Cannula 07/03 0559 96.9 60 16 116/49 99 Nasal 2.0L Cannula 07/03 0332 96 Nasal 2.0L Cannula 07/02 2212 128/58 07/02 2043 97.0 72 18 118/60 96 Nasal 2.0L Cannula 07/02 2040 96 Room Air 2.0L 07/02 1827 96.8 60 18 115/57 99 Nasal 2.0L Cannula 07/02 1557 97.4 67 18 121/59 100 Nasal 2.0L Cannula 07/02 1459 96 Nasal 2.0L Cannula Intake & Output 07/03 1600 07/03 0800 07/03 0000 Intake Total Output Total 70 70 180 Balance -70 -70 -180 Output, Urine 70 70 180 Patient 98 lb Weight Weight Estimated Measurement Method Physical Exam: General: alert and oriented x3, frail, fatigued appearing, cooperative Eyes: PERRLA, no scleral icterus ENT: normal pharynx without exudates Neck: supple, no thyromegaly, no lymphadenopathy appreciated Lungs: clear to auscultation, non-labored breathing Cardiac: bradycardia, normal S1 and S2, no JVD appreciated Abdomen: mild tenderness, no hepatosplenomegaly Extremities: decreased pulses bilaterally, covered wound on right foot digits, several varicose veins Skin: bruise on forehead Results Results: Laboratory Tests 07/03/17 0554: Anion Gap 11, Estimated GFR 10 L, BUN/Creatinine Ratio 23.8, Troponin I 0.04, CBC w Diff MAN DIFF ORDERED, RBC 3.55 L, MCV 89.1, MCH 29.3, MCHC 32.8 L, RDW 16.4 H, MPV 9.2, Segmented Neutrophils 66, Lymphocytes 28, Monocytes 4, Basophils 2, Platelet Estimate ADEQUATE, Polychromasia 1+, Hypochromic- Microcytic 1+, Poikilocytosis 2+, Ovalocytes 1+, [place] Cells 1+, Fld Total RBCs Counted 100 07/03/17 0031: Troponin I 0.04 07/02/17 1635: Ur Eosinophil Smear OCC EOS SEEN 07/02/17 1635: Urine Color YEL, Urine Clarity CLDY H, Urine pH 6.0, Ur Specific [place] 1.025, Urine Protein 100 H, Urine Ketones NEG, Urine Nitrite NEG, Urine Bilirubin NEG, Urine Urobilinogen 0.2, Ur Leukocyte Esterase MOD H, Ur Microscopic SEDIMENT EXAMINED, Urine RBC 15-25 H, Urine WBC > 75 H, Ur Epithelial Cells RARE, Urine Bacteria FEW H, Micro UA Comment MORE INFO: H, Urine Hemoglobin LARGE H, Urine Glucose NEG 07/02/17 1635: Ur Random Creatinine 76.4, Ur Random Sodium 26 L, Ur Random Potassium 33.2, Fraction Sodium Excret 1.0 07/02/17 1517: Anion Gap 13, Estimated GFR 10 L, BUN/Creatinine Ratio 23.0, Glucose 113 H, Calcium 7.8 L, Total Bilirubin 0.5, GGT 510 H, AST 36, ALT 34, Alkaline Phosphatase 367 H, Troponin I 0.03, Total Protein 5.4 L, Albumin 2.1 L, Globulin 3.3, Albumin/Globulin Ratio 0.6 L, Free T4 1.93, Total T3 0.41 L, TSH &T3 &Free T4 Intrp 9.820 H 07/02/17 1445: CBC w Diff NO MAN DIFF REQ, RBC 4.01 L, MCV 88.7, MCH 29.1, MCHC 32.8 L, RDW 16.9 H, MPV 9.7, Gran % 63.6, Lymphocytes % 30.3, Monocytes % 3.6, Eosinophils % 1.0, Basophils % 1.5, Absolute Granulocytes 7.7 H, Absolute Lymphocytes 3.7 H, Absolute Monocytes 0.4, Absolute Eosinophils 0.1, Absolute Basophils 0.2 Microbiology 07/03 48 URINE ROUT: Urine Culture - COLB 07/02 2338 URINE ROUT: Urine Culture - COLB 07/02 2324 STOOL: Cryptosporidium Antigen - COLB 07/02 2324 STOOL: Giardia Antigen (RONNIE) - COLB 07/02 2324 STOOL: Clostridium difficile Toxin A & B - COLB 07/02 232 STOOL: Yersinia Culture - COLB 07/02 2324 STOOL: Stool Culture - COLB 07/02 1635 URINE ROUT: Urine Culture - RECD Current Medications Sig/Delphine Start time Last Medication Dose Route Stop Time Status Admin Amiodarone HCl 200 MG DAILY 07/03 1000 AC 07/03 PO 1041 Aspirin Buffered 81 MG DAILY 07/03 1000 AC 07/03 PO 1041 Atorvastatin Calcium 10 MG 1700 07/03 1700 AC PO Ceftriaxone Sodium 1,000 MG Q24H 07/03 2030 AC IV Ceftriaxone Sodium 0 .STK-MED ONE 07/02 203 DC .ROUTE Ceftriaxone Sodium 1,000 MG ONCE ONE 07/02 2014 DC 07/02 IV 07/02 2015 203 Cilostazol 50 MG BID 07/02 2322 AC 07/03 PO 1041 Dextrose/Sodium 1,000 ML Q13H 07/03 1200 AC Chloride IV Heparin Sodium 0 .STK-MED ONE 07/03 0608 DC (Porcine) .ROUTE Heparin Sodium 5,000 UNIT Q8 07/03 0600 AC 07/03 (Porcine) SC 0615 Latanoprost 1 GTT AT BEDTIME 07/03 2200 AC OPH Levothyroxine Sodium 0.05 MG DAILY AC 07/03 0700 AC 07/03 PO 0757 Melatonin 3 MG QPM 07/03 2200 AC PO Mirtazapine 7.5 MG QPM 07/03 2200 AC PO Omeprazole 20 MG DAILY AC 07/03 0700 AC 07/03 PO 0615 Omeprazole 0 .STK-MED ONE 07/03 0608 DC PO Prednisone 2.5 MG DAILY 07/03 1000 AC 07/03 PO 1041 Sodium Chloride 500 ML BOLUS ONE 07/03 1330 AC IV 07/03 1429 Sodium Chloride 1,000 ML Q13H 07/02 2330 AC 07/03 IV 07/04 0129 0011 Sodium Chloride 1,000 ML ONCE ONE 07/02 2014 DC 07/02 IV 07/03 0254 2039 Timolol Maleate 1 GTT BID 07/02 2324 AC 07/03 OPH 1041 Assessment/Plan Assessment: This is an 86 year old white female with a past medical history of atrial fibrillation, CAD s/p stent placement, renal artery stenosis, hyperlipidemia, GERD, and RA presenting to the ED with poor feeding, weakness, fatigue in the setting of diarrhea for the past 2 weeks, vomiting, and abnormal labs at her assisted. Her physical exam is notable for general weakness and frailness, dry mucous membranes, afebrile, with no urinary or pulmonary symptoms. She had a kidney u/s showing bilateral cortical thinning, and abdominal ascites and left pleural effusion. Her chest x-ray is concerning for infiltrate. Her urinalysis is positive for protein, leukocyte esterase, > 75 WBCs, RBCs, and hemoglobin. Her EKG shows bradycardia with a possible junctional escape rhythm. Her labs are notable for WBC of 13.5, BUN/Cr of 100/4.2, K of 4.9, GGT of 510, alk phos of 367, albumin of 2.1, and TSH of 9.8. Her troponins have remained normal. This patient has multiple co-morbidities and is admitted for presumed acute on chronic kidney injury. She is admitted to telemetry due to abnormal EKG. Plan: Acute kidney injury: -Being hydrated with 75 mLs/her for presumed dehydration -Follow nephrology consult recommendations -Follow up electrolytes -Hyperkalemia of 4.9 this morning, continue to monitor -Strict monitoring of I's and O's Possible junctional rhythm on EKG: -Monitor on telemetry -Serial troponins and EKGs -She will get an echocardiogram -Follow cardiology consult recommendations Diarrhea: -Testing for stool culture, C. difficile toxin, ova and parasites and crypto Possible urinary tract infection: -Given IV ceftriaxone in ER -Continue 1000 mg ceftriaxone daily -Urine culture Hypothyroidism: -TSH is 9.8 -Follow endo consult recommendations History of A fib, RA, PAD, hyperlipidemia, GERD -Continue home medications
[2017-07-03 13:50] VITALS: BP 90/40
--- NOTE | 2017-07-03 20:15 | RADIOLOGY REPORT ---
EXAMINATION: XR FOOT, RIGHT CLINICAL INFORMATION: Discoloration of right foot. COMPARISON: None TECHNIQUE: 4 views of the right foot. FINDINGS: There is diffusely osteopenic foot with mild hallux valgus deformity of first MTP joint. Likely old healed fracture distal fifth metatarsal is noted. There are no bony erosive changes, fracture or subluxation. There is vascular calcification at the ankle and foot. IMPRESSION: No gross bony abnormality seen except for osteopenia. No soft tissue gas and swelling noted. There is vascular calcification in the ankle and the foot.
[2017-07-03 22:20] VITALS: BP 86/40
[2017-07-03 23:02] VITALS: BP 104/40
--- NOTE | 2017-07-03 23:50 | Event Note ---
Event Note Event Note: S: Concerns of altered mental status by family and hypotension B:86-year-old female past medical history of bilateral renal stenosis, Tricuspid stenosis, paroxysmal A. fib, rheumatoid arthritis, CAD S/P stent, HLD, hypothyroidism, CVA, GERD presenting for diarrhea, urinary incontinence, UTI, and vomiting. A/R: Patient was bolused with 500 mL normal saline and blood pressure improved from 86/40 104/40. H ospitalist overnight was made aware. Patient got a dry CT head which reveale an acute on chronic subdural hematoma. no midline shift. small mass effect Spoke with neurosurgery who recommended stopping blood thinners. Goals of care was discussed with the daughter who stated that the patient was DNR/DNI doubt want any aggressive measures. The daughter did state that she agreed to transfer the patient to ICU for closer monitoring of neuro checks. Neurosurgery was consulted who stated that they did not believe the hematoma was the cause of her altered mental status. They suggested neurology consult for confusion. However we spoke with the nocturnal hospitalist who did not feel strongly about a neurology consult at this time
--- NOTE | 2017-07-03 23:55 | CT SCAN REPORT ---
EXAMINATION: CT HEAD WITHOUT CONTRAST CLINICAL INFORMATION: Altered mental status COMPARISON: 12/25/2016 TECHNIQUE: Contiguous axial imaging was performed from the skull base to vertex without intravenous contrast. DLP: 617 mGy-cm. FINDINGS: There is no evidence of acute intracranial hemorrhage or territorial infarction. No midline shift. Gaming to white matter differentiation is well preserved. There is a hypoattenuating left frontoparietal convexity extra-axial fluid collection, greatest at the apex. There is minimal layering hyperattenuation. This can be seen on series 2 image 33. At the level of the lateral ventricles, this measures 0.7 cm in thickness. Slight mass effect is seen along the high left parietal sulci. No hydrocephalus. Proportional prominence of the ventricles and sulcal spaces is consistent with mild volume loss. Patchy periventricular and deep white matter hypoattenuation is consistent with mild small vessel ischemic changes. Chronic lacunar infarct in the right thalamus. The osseous structures and soft tissues are normal. The mastoid air cells and visualized portions of the paranasal sinuses are well aerated. IMPRESSION: Small left cerebral convexity extra-axial fluid collection. Minimal dependent hyperattenuation suggests that this represents an acute on chronic subdural hematoma. This finding is new from 12/25/2016. Mild volume loss with small vessel ischemic changes. Chronic lacunar infarct in the right thalamus. This critical result was discussed with Mahendra Garcia MD by telephone at 07/03/2017 11:43 PM and it was ascertained that the content and urgency of the report was understood at the time of direct communication.
[2017-07-04 05:04] LABS: ABSOLUTE BASOPHIL COUNT 0 /CUMM (0.0-0.2); ABSOLUTE EOSINOPHIL COUNT 0 /CUMM (0.0-0.7); ABSOLUTE GRANULOCYTE CT 6.3 /CUMM (1.4-6.5); ABSOLUTE LYMPH COUNT 1.8 /CUMM (1.2-3.4); ABSOLUTE MONOCYTE COUNT 0 /CUMM (0.10-0.60); BASOPHIL % 0.2 % (0.0-2.0); EOSINOPHIL % 0 % (0-5); GRANULOCYTE % 77.5 % (42.2-75.2); MEAN CORPUSCULAR HGB 28.4 PG (27.0-31.0); MEAN CORPUSCULAR HGB CONC 32.1 G/DL (33.0-37.0); MEAN CORPUSCULAR VOLUME 88.5 FL (81.0-99.0); MEAN PLATELET VOLUME 9.2 FL (7.4-10.4); PLATELET COUNT 131 /CUMM (130-400); RBC DISTRIBUTION WIDTH 16.8 % (11.5-14.5); RED BLOOD CELL CT 3.51 /CUMM (4.20-5.40); WHITE BLOOD CELL COUNT 8.1 /CUMM (4.8-10.8)
--- NOTE | 2017-07-04 07:13 | ECHOCARDIOGRAM REPORT ---
SELAM VO Age: 86 : 1930 Gender: F Exam Date: 07/03/2017 08:54 Exam Location: ER Ht (in): 61 Wt (lb): 93 BSA: 1.34 BP: 116 / 49 Ordering Physician: Marie Cervantes MD Referring Physician: Marie Cervantes MD Technologist: Jerson Corea NERI Room Number: 7 Indications: MYOCARDIAL ISCHEMIA/[place] Rhythm: Sinus Technical Quality: Fair FINDINGS Left Ventricle Normal size left ventricle. No obvious regional wall motion abnormalities. Normal left ventricular ejection fraction estimated at 55-60%. Right Ventricle Right ventricle not well visualized, grossly normal. Right Atrium Normal right atrial size. Left Atrium Left atrial size at the upper limits of normal. Mitral Valve Mild thickening/calcification of the anterior mitral valve leaflet. Severe mitral annular calcification. Mild mitral regurgitation. Aortic Valve Trileaflet aortic valve. Diffuse thickening of the aortic valve cusps with reduced excursion. Tricuspid Valve Tricuspid valve not well visualized, grossly normal. Moderate tricuspid regurgitation. Right ventricular systolic pressure estimated at 48 mmHg. Pulmonic Valve Pulmonic valve not well visualized, grossly normal. Mild pulmonic regurgitation. Pericardium No pericardial effusion. Left pleural effusion. Grade 1: mild ascites. Great Vessels Aortic root and proximal ascending aorta not well visualized, grossly normal. CONCLUSIONS 1. 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 THere does not appear to be any significant valvular stenosis or isufficiency present. THe peak gradient across the aortic outflow tract is 15 mmHg. 2. Thickening and calcification of the mitral leaflets is present with severe anular calcification and mild mitral insufficiency. 3. There is no significant pericardial fluid present. 4. There appears to be a left pleural effusion present. 5. Ascites is also noted on the subcostal images. 6. The left ventricular chamber size and systolic function appear normal. 7. Moderate tricuspid insufficiency is presnet with mild pulmonic insufficiency and an estimated RV systolic pressure of 48 mmHg. 8. An area of echo lucency is noted superior to the left atrial cavity which may represent extension of the pleural fluid, hiatal hernia, etc. CLinical correlation is suggested. Scott oPnd M.D. (Electronically Signed) Final Date: 04 July 2017 07:12 MEASUREMENTS (Male / Female) Normal Values 2D ECHO LV Diastolic Diameter PLAX 3.6 cm 4.2 - 5.9 / 3.9 - 5.3 cm LV Systolic Diameter PLAX 2.4 cm 2.1 - 4.0 cm LV Fractional Shortening PLAX 33.3 % 25 - 46 % LV Ejection Fraction 2D Teich 63.0 % IVS Diastolic Thickness 1.0 cm LVPW Diastolic Thickness 0.8 cm LV Relative Wall Thickness 0.5 RV Internal Dim ED PLAX 3.5 cm 1.9 - 3.8 cm LVOT Diameter 2.0 cm Aortic Root Diameter 2.6 cm LA Systolic Diameter LX 3.2 cm 3.0 - 4.0 / 2.7 - 3.8 cm Ascending Aorta Diameter 3.1 cm DOPPLER AV Peak Velocity 179.0 cm/s AV Peak Gradient 12.8 mmHg AV Mean Velocity 116.0 cm/s AV Mean Gradient 6.0 mmHg AV Velocity Time Integral 42.5 cm LVOT Peak Velocity 69.9 cm/s LVOT Peak Gradient 2.0 mmHg LVOT Mean Velocity 42.7 cm/s LVOT Mean Gradient 1.0 mmHg LVOT Velocity Time Integral 17.2 cm LVOT Stroke Volume 54.0 cm AV Area Cont Eq vti 1.3 cm AV Area Cont Eq pk 1.2 cm MV Peak Velocity 105.0 cm/s MV Peak Gradient 4.4 mmHg MV Mean Velocity 59.6 cm/s MV Mean Gradient 2.0 mmHg Mitral E Point Velocity 112.0 cm/s Mitral A Point Velocity 82.4 cm/s Mitral E to A Ratio 1.4 MV PHT Velocity 113.0 cm/s MV Deceleration [place] 335.0 cm/s MV Pressure Half Time 101.2 ms MV Area PHT 2.2 cm MV Deceleration Time 173.0 ms TR Peak Velocity 328.0 cm/s TR Peak Gradient 43.0 mmHg Right Atrial Pressure 5.0 mmHg Pulmonary Artery Systolic Pressu 48.0 mmHg Right Ventricular Systolic Press 48.0 mmHg PV Peak Velocity 102.0 cm/s PV Peak Gradient 4.2 mmHg PV Mean Velocity 63.4 cm/s PV Mean Gradient 2.0 mmHg PV Velocity Time Integral 21.8 cm LV E' Lateral Velocity 5.0 cm/s Mitral E to LV E' Lateral Ratio 22.5 LV E' Septal Velocity 3.7 cm/s Mitral E to LV E' Septal Ratio 30.3
--- NOTE | 2017-07-04 07:45 | PN- Endocrinology ---
Assessment/Plan Endoscopy Assessment: Patient was moved to the intensive care unit because of low blood pressure. Her cortisol level was low for patient with hypotension. Therefore she was started on Solu-Cortef yesterday. She received 100 mg IV bolus and is presently on 50 mg IV every 8 hours. The patient's blood pressure still remains low. The patient has multiple medical issues including an acute on chronic subdural, ascites which may be due to tricuspid insufficiency, left pleural effusion, ischemic right foot, chronic renal insufficiency, severe metabolic acidosis, and hypotension as mentioned above. She remains very weak. Her daughter has stated that she may want to make her comfort measures only. Plan: Suggest continue the Solu-Cortef 50 mg IV every 8 hours. Continue IV fluids. Further discussions with her daughter to be held concerning the level of care. Subjective Subjective: Feels about the same Objective Last 24 Hrs of Vital Signs/I&O Vital Signs Date Time Temp Pulse Resp B/P B/P Pulse O2 O2 Flow FiO2 Mean Ox Delivery Rate 07/04 0400 95 Room Air 07/04 0000 Room Air 07/03 2302 07/03 2220 96.7 60 18 86/40 96 Room Air 07/03 1600 Room Air 07/03 1350 07/03 1236 97.4 68 18 80/ 93 Room Air 07/03 1041 98.2 88 18 13607/03 1040 98.2 88 18 136 99 Nasal 2.0L Cannula Intake & Output 07/04 1600 Intake Total 720 350 500 Output Total 70 Balance 720 350 430 Intake, IV 720 300 500 Intake, Oral 50 Output, Urine 70 Patient 98 lb Weight Weight Estimated Measurement Method Vital Signs Date Time Temp Pulse Resp B/P B/P Pulse O2 O2 Flow FiO2 Mean Ox Delivery Rate 07/04 0400 95 Room Air 07/04 0000 Room Air 07/03 2302 10407/03 2220 96.7 60 18 86/40 96 Room Air 07/03 1600 Room Air 07/03 1350 /07/03 1236 97.4 68 18 80/40 93 Room Air 07/03 1041 98.2 88 18 136/88 07/03 1040 98.2 88 18 136/88 99 Nasal 2.0L Cannula Intake & Output 07/04 0807/04 0000 07/03 1600 Intake Total 720 350 500 Output Total 70 Balance 720 350 430 Intake, IV 720 300 500 Intake, Oral 50 Output, Urine 70 Patient 98 lb Weight Weight Estimated Measurement Method Physical Exam General Appearance: awake, lethargic, thin Head: normal appearance Neck: normal inspection Respiratory: normal breath sounds Cardiovascular: regular rate/rhythm Abdomen: normal bowel sounds Extremities: ischemic right foot Current Medications: Current Medications Sig/Delphine Start time Last Medication Dose Route Stop Time Status Admin Amiodarone HCl 200 MG DAILY 07/03 1000 AC 07/03 PO 1041 Aspirin Buffered 81 MG DAILY 07/03 1000 DC 07/03 PO 1041 Atorvastatin Calcium 10 MG 1700 07/03 1700 AC 07/03 PO 1716 Ceftriaxone Sodium 1,000 MG Q24H 07/03 2030 AC 07/03 IV 2040 Cilostazol 50 MG BID 07/02 232 AC 07/03 PO 2049 Dextrose/Sodium 1,000 ML Q13H 07/03 1200 AC 07/04 Chloride IV 0308 Heparin Sodium 5,000 UNIT Q8 07/03 0600 DC 07/03 (Porcine) SC 2055 Hydrocortisone 50 MG Q8 07/03 2200 AC 07/04 Sodium Succinate IV 0526 Hydrocortisone 100 MG ONE ONE 07/03 1400 DC 07/03 Sodium Succinate IV 07/03 1401 1740 Latanoprost 1 GTT AT BEDTIME 07/03 2200 AC 07/03 OPH 205 Levothyroxine Sodium 0.05 MG DAILY AC 07/03 0700 AC 07/04 PO 0616 Melatonin 3 MG QPM 07/03 2200 AC 07/03 PO 2048 Mirtazapine 7.5 MG QPM 07/03 2200 AC 07/03 PO 2049 Omeprazole 20 MG DAILY AC 07/03 0700 AC 07/04 PO 0616 Prednisone 2.5 MG DAILY 07/03 1000 DC 07/03 PO 1041 Sodium Chloride 250 ML BOLUS ONE 07/04 0245 DC 07/04 IV 07/04 0344 0308 Sodium Chloride 500 ML BOLUS ONE 07/03 2145 DC IV 07/03 2244 Sodium Chloride 500 ML BOLUS ONE 07/03 1330 DC 07/03 IV 07/03 1429 1330 Sodium Chloride 1,000 ML Q13H 07/02 2330 DC 07/03 IV 07/04 0129 1230 Timolol Maleate 1 GTT BID 07/02 2324 AC 07/03 OPH 2104 Results Pertinent Lab/Delmer Results: Laboratory Tests 07/04 07/03 07/03 9559 [id number] Chemistry Sodium (137 - 145 mmol/L) 143 Potassium (3.5 - 5.1 mmol/L) 5.4 H Chloride (98 - 107 mmol/L) 122 H Carbon Dioxide (22 - 30 mmol/L) 8 *L Anion Gap (5 - 16) 13 BUN (7 - 17 mg/dL) 95 H Creatinine (0.5 - 1.0 mg/dL) 4.6 H Estimated GFR (>60 ml/min) 9 L BUN/Creatinine Ratio (7 - 25 %) 20.7 Lactic Acid (0.7 - 2.1 mmol/L) 0.9 1.0 Hematology CBC w Diff NO MAN DIFF REQ WBC (4.8 - 10.8 /CUMM) 8.1 RBC (4.20 - 5.40 /CUMM) 3.51 L Hgb (12.0 - 16.0 G/DL) 10.0 L Hct (37 - 47 %) 31.0 L MCV (81.0 - 99.0 FL) 88.5 MCH (27.0 - 31.0 PG) 28.4 MCHC (33.0 - 37.0 G/DL) 32.1 L RDW (11.5 - 14.5 %) 16.8 H Plt Count (130 - 400 /CUMM) 131 MPV (7.4 - 10.4 FL) 9.2 Gran % (42.2 - 75.2 %) 77.5 H Lymphocytes % (20.5 - 51.1 %) 21.7 Monocytes % (1.7 - 9.3 %) 0.6 L Eosinophils % (0 - 5 %) 0 Basophils % (0.0 - 2.0 %) 0.2 Absolute Granulocytes (1.4 - 6.5 /CUMM) 6.3 Absolute Lymphocytes (1.2 - 3.4 /CUMM) 1.8 Absolute Monocytes (0.10 - 0.60 /CUMM) 0 L Absolute Eosinophils (0.0 - 0.7 /CUMM) 0 Absolute Basophils (0.0 - 0.2 /CUMM) 0
[2017-07-04 08:00] VITALS: BP 92/34
--- NOTE | 2017-07-04 08:46 | Cons- CRCU ---
Nimesh BLANCO,[facility] 07/04/17 0833: General Information and HPI Consulting Request Date of Consult: 07/04/17 Requested By: Source of Information: patient Exam Limitations: unable to give history, patient's age History of Present Illness: 86-year-old female past medical history of bilateral renal stenosis, Tricuspid stenosis, paroxysmal A. fib, rheumatoid arthritis, CAD S/P stent, HLD, hypothyroidism, CVA, GERD presenting for diarrhea, urinary incontinence, UTI, and vomiting. Presenting complain diarrhea for 2 and half weeks. States that she was also informed by Dr. herrera that she had a UTI/renal infection. States that she's been having IV fluids for the past 4 days for supplementation. However the patient vomited at noon today was feeling nauseous. She states that she is been having increased bowel movements with more than 10 bowel movements per day on certain days. States that the last bowel movement was yesterday afternoon. States that her symptoms were getting better and now worse. Since that bowel movements are brownish yellow without any mucus or blood in his loose/watery. She states that she's been having decreased appetite at this time. She denies any headaches, fevers, chills, chest pain, shortness without abdominal pain, any sick contacts. The patient states that her last colonoscopy was 20 years ago and states that there were no issues. The patient was transferred to ICU overnight when she was found to have altered mental status with head CT results showing ''Small left cerebral convexity extra -axial fluid collection. Minimal dependent hyperattenuation suggests that this represents an acute on chronic subdural hematoma. This finding is new from 2016. Mild volume loss with small vessel ischemic changes. Chronic lacunar infarct in the right thalamus." Patient's blood pressure was also 80/40 Her cortisol level was also low therefore she was started on hydrocortisone 100 mg IV bolus followed by 50 mg IV q8. Overnight MAXIMUM TEMPERATURE 98, heart rate sinus rhythm in 60s, respiratory rate 20s, blood pressure borderline 80s to 90s/40s to 50s, 95% on room air Urine output none input 520 Daughter at patient's bedside they do not want any aggressive measures no central line. The possibility of converting to comfort care. Neurosurgery has been contacted by the night team, she will be evaluated by them today. Vascular surgery has also been contacted for bilateral renal artery stenosis Allergies/Medications Allergies: Coded Allergies: NO KNOWN ALLERGIES (02/15/11) Home Med List: Amiodarone (Cordarone) 200 MG TABLET 1 TAB PO DAILY HEART (Reported) Aspirin (Ecotrin*) 81 MG TABLET.DR 1 TAB PO DAILY HEART/BLOOD (Reported) Atorvastatin Calcium (Lipitor) 10 MG TABLET 1 TAB PO DAILY CHOLESTEROL ( Reported) Cilostazol 50 MG TABLET 1 TAB PO BID BLOOD FLOW (Reported) Guaifenesin/Dextromethorphan (Guaifenesin Dm Syrup) 100 MG-10 MG/5 ML SYRUP 10 ML PO Q4H PRN COUGH/MUCUS (Reported) Latanoprost 0.005 % DROPS 1 GTT OU DAILY BOTH EYES (Reported) Levothyroxine Sodium (Synthroid) 50 MCG TABLET 1 TAB PO DAILY AC THYROID ( Reported) Magnesium Hydroxide (Milk Of Magnesia) 400 MG/5 ML ORAL.SUSP 30 ML PO Q3D PRN CONSTIPATION (Reported) Melatonin 3 MG TABLET 1 TAB PO QPM SLEEP (Reported) Mirtazapine 15 MG TABLET 0.5 TAB PO QPM APPETITE (Reported) Na Phos,M-B/Na Phos,Di-Ba (Fleet Enema) 19 GRAM-7 GRAM/118 ML ENEMA 1 E RC DAILY PRN CONSTIPATION (Reported) Naloxone HCl (Narcan) 4 MG/ACTUATION SPRAY 4 MG EDVIN AD PRN OPIOID INDUCED RESP. DEPRESSIO (Reported) Omeprazole 20 MG CAPSULE.DR 1 CAP PO DAILY GI (Reported) Prednisone 2.5 MG TABLET 1 TAB PO DAILY RA (Reported) Saccharomyces Boulardii (Florastor) 250 MG CAPSULE 1 CAP PO BID GI (Reported) Timolol (Betimol) 0.5 % DROPS 1 GTT OPH BID EYE (Reported) Review of Systems Review of Systems Constitutional: Reports: see HPI. Past History Travel History Traveled to [place] past 21 day No Medical History Blood Transfusion Hx: No Neurological: CVA Cardiovascular: AFIB, CAD, hyperlipidemia, myocardial infarction, PVD Respiratory: NONE Gastrointestinal: colitis, constipation, GERD, peptic ulcer disease Hepatic: NONE Renal: nephrolithiasis, she had urinary obstruction in the past requiring placement of stents she also had an episode of sepsis of urinary origin. This required transfer to the ICU. renal artery stenosis Musculoskeletal: rheumatoid arthritis (diagnosed in 1993), sciatica Psychiatric: NONE Endocrine: hypothyroidism Blood Disorders: anemia, biopsy-proven myelodysplastic syndrome Other Medical Hx: Rheumatoid arthritis Surgical History Surgical History: appendectomy, cataract removal, ureteral stent placement multiple cardiac stents Psychosocial History Where Do You Live? Extended Care Facility Services at Home: None Smoking Status: Never Smoked ETOH Use: denies use Illicit Drug Use: denies illicit drug use Exam & Diagnostic Data Last 24 Hrs of Vital Signs/I&O Vital Signs Date Time Temp Pulse Resp B/P B/P Pulse O2 O2 Flow FiO2 Mean Ox Delivery Rate 07/04 1221 66 102/46 07/04 0400 95 Room Air 07/04 0000 Room Air 07/03 2302 104/40 07/03 2220 96.7 60 18 86/40 96 Room Air Intake & Output 07/04 1600 07/04 0800 07/04 0000 Intake Total 720 350 Output Total Balance 720 350 Intake, IV 720 300 Intake, Oral 50 Physical Exam General Appearance: alert, awake, cachetic Head: atraumatic, bruise on forehead Neck: normal inspection Respiratory: normal breath sounds, chest non-tender, no respiratory distress Cardiovascular: irregularly irregular Gastrointestinal: normal bowel sounds, soft, non-tender, mild ascites Extremities: normal inspection, gangreanoud fifth toe Neurologic/Psych: awake Cranial Nerves: normal hearing, normal speech Last 48 Hrs of Labs/Delmer: Laboratory Tests 07/04/17 1145: Urinalysis LIGHT H, Urine Color YEL, Urine Clarity TURBD H, Urine pH 5.5, Ur Specific [place] >= 1.030, Urine Protein 100 H, Urine Ketones TRACE H, Urine Nitrite NEG, Urine Bilirubin NEG, Urine Urobilinogen 0.2, Ur Leukocyte Esterase LARGE H, Ur Microscopic SEDIMENT EXAMINED, Urine RBC 5-10 H, Urine WBC PACKD H, Ur Epithelial Cells FEW, Urine Bacteria MANY H, Micro UA Comment MORE INFO: H, Urine Hemoglobin LARGE H, Urine Glucose NEG 07/04/17 0800: Anion Gap 14, Estimated GFR 10 L, Glucose 169 H, Calcium 7.0 L, Phosphorus 7.3 H, Magnesium 1.7, Total Bilirubin 0.5, AST 31, ALT 41, Albumin 1.9 L 07/04/17 0427: Anion Gap 13, Estimated GFR 9 L, BUN/Creatinine Ratio 20.7, CBC w Diff NO MAN DIFF REQ, RBC 3.51 L, MCV 88.5, MCH 28.4, MCHC 32.1 L, RDW 16.8 H, MPV 9.2, Gran % 77.5 H, Lymphocytes % 21.7, Monocytes % 0.6 L, Eosinophils % 0, Basophils % 0.2, Absolute Granulocytes 6.3, Absolute Lymphocytes 1.8, Absolute Monocytes 0 L, Absolute Eosinophils 0, Absolute Basophils 0 07/03/17 2255: Lactic Acid 0.9 07/03/17 1920: Lactic Acid 1.0 07/03/17 0554: Anion Gap 11, Estimated GFR 10 L, BUN/Creatinine Ratio 23.8, Troponin I 0.04, Cortisol AM Sample 7.8, CBC w Diff MAN DIFF ORDERED, RBC 3.55 L, MCV 89.1, MCH 29.3, MCHC 32.8 L, RDW 16.4 H, MPV 9.2, Segmented Neutrophils 66, Lymphocytes 28, Monocytes 4, Basophils 2, Platelet Estimate ADEQUATE, Polychromasia 1+, Hypochromic-Microcytic 1+, Poikilocytosis 2+, Ovalocytes 1+, [place] Cells 1+, Fld Total RBCs Counted 100 07/03/17 0031: Troponin I 0.04 07/02/17 1635: Ur Eosinophil Smear OCC EOS SEEN 07/02/17 1635: Urine Color YEL, Urine Clarity CLDY H, Urine pH 6.0, Ur Specific [place] 1.025, Urine Protein 100 H, Urine Ketones NEG, Urine Nitrite NEG, Urine Bilirubin NEG, Urine Urobilinogen 0.2, Ur Leukocyte Esterase MOD H, Ur Microscopic SEDIMENT EXAMINED, Urine RBC 15-25 H, Urine WBC > 75 H, Ur Epithelial Cells RARE, Urine Bacteria FEW H, Micro UA Comment MORE INFO: H, Urine Hemoglobin LARGE H, Urine Glucose NEG 07/02/17 1635: Ur Random Creatinine 76.4, Ur Random Sodium 26 L, Ur Random Potassium 33.2, Fraction Sodium Excret 1.0 Microbiology 07/03 1999 STOOL: Clostridium difficile Toxin A & B - COMP Assessment/Plan CRCU Impression/Plan: Pt is an 86-year-old woman with a past medical history chronic kidney disease, severe peripheral vascular disease, questionable bilateral renal artery stenosis , paroxysmal atrial fibrillation, coronary artery disease and prior CVA. She presents to our hospital with symptoms of nausea and emesis as well as diarrhea for a period of approximately 2 weeks. She was noted to have acute kidney injury as well as hyperkalemia I called andrei Pacheco, the nurse taking care of the patient informed that she was given IV fluid supplementation because of ongoing diarrhea and poor oral intake. She was not being treated with antibiotics. The patient is being transferred to ICU and is currently being treated and evaluated for following problems Respiratory #Pleural effusion seen on imaging Respiratory status Stable satting in 90s on room air -Continue to monitor Infection #Possible urinary tract infection Patient has been treated with multiple antibiotics in the past with a history of recurrent UTIs treated with antibiotics. Today when the Menard was placed across pus came out. She presented with leukocytosis and moderate leukoesterase -Monitor fever and WBC curve -Repeat UA and Urine culture -Continue ceftriaxone for today and reassess tomorrow -Blood cultures remain negative so far Cardiology #CAD -Stable continue aspirin and statin #Atrial fibrillation -Continue amiodarone, patient was on anticoagulation at one point in her life has been taken off for a while #Hypotension secondary to relative cortisol deficiency and Volume depletion Patient has history of rheumatoid arthritis is on chronic prednisone. She was found to be hypotensive rapid response called overnight. Her blood pressure was found to be 80/40, cortisone level were checked and found to be 7. Patient was given multiple boluses of normal saline in setting of volume depletion secondary to diarrhea and 100 mg IV Solu-Cortef for relative cortisol deficiency. Septic shock unlikely -Continue patient on hydrocortisone 50 every 8 -As per daughter, no aggressive Measure no central lines no pressors #Ischemic right foot Patient has history of right fifth toe gangrene, stable for years amputation has been offered in the past but patient refused plain x-ray did not show any evidence of vasculitis. -With multiple comorbidities she isn't candidate for recent vascularization at this point -Vascular surgery consultation. -Consider podiatry consult -Follow-up arterial ultrasound for right lower extremity Hematology #Leukocytosis-Improving Possible source urinary tract infection vs colitis versus diverticulitis -Continue to monitor #Chronic Anemia in setting of CKD H/H 03/05 around baseline -Continue to monitor Metabolic/Nephrology #Nonanion gap metabolic acidosis Patient has bicarbonate of 7 her baseline is around 10 her chloride is 123 she has non-anion gap metabolic acidosis likely secondary todiarrhea, hyperchloremia due to normal saline infusion, cortisol deficiency and diarrhea. Her delta delta is a gap is less than 1 and applying anion gap metabolic acidosis as well secondary to renal failure -D5W + 150meq sodium bicarb @ 100cc/hr -Avoid hydration with normal saline -Nephrology on board -Repeat BEP in p.m. #JULES on stage IV CKD Acute kidney injury is likely secondary to prerenal acidemia due to volume the patient in setting of diarrhea. Her FEENA is consistent with ATN -Continue IV hydration D5W +150 mEq sodium bicarbonate@100ml/hr 1bag, shift to D5W+ LR after that #Hyperkalemia Patient has potassium of 5.4 -BEP in pm, if unimproved consider calcium gluconate Avoid Kayexalate in setting of diarrhea #Hyperphosphatemia Secondary to JULES -Continue to monitor #Hypocalcemia Likely secondary to hyperphosphatemia and setting of a JULES -Continue to monitor Alimantary #Diarrhea Patient presented with complaint of multiple bowel movements about 10. She has been having diarrhea for past 2 and half week. Etiology at this time is unclear. -Check C. difficile -Check stool for Ova, parasites, Shigella, salmonella etc. -CT scan abdomen and pelvis to rule out any acute intra-abdominal pathology like ischemic colitis in setting of history of CAD status post stent vs colitis versus diverticulitis #Diet regular diet Neurology #Chronic subdural hematoma Patient was transferred overnight for AMS, every vitals in setting of chronic subdural which would appear to be larger film obtained a year ago. In the morning patient was alert oriented, appropriately answering question. She has been evaluated by the surgery -NO Acute intervention at this point DVT Prophylaxis Subcutaneous heparin 3 times a day CODE STATUS DNR/DNI Consult Acknowledgment - Thank you for your consult request. 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, chronic kidney disease, recent severe gastroenteritis, mild aortic stenosis, coronary artery disease and stent, previous CVA with no neuro deficit, previous paroxysmal atrial fibrillation in sinus rhythm, hyperlipidemia, hypothyroidism, significant non-anion gap metabolic acidosis with profound low bicarbonate due to diarrhea and normal saline, hyperkalemia, junctional rhythm now on amiodarone , Severe RA was on steroids before and mtx Her issues include * Significant renal failure with chronic kidney disease and patient has ischemic ATN in the setting of significant diarrhea * Severe acidosis most likely hyperchloremic acidosis due to diarrhea and saline with mild metabolic acidosis due to Ativan gap as well * Significant cortisol deficiency * Chronic kidney disease now with stage IV disease * Severe diarrhea with CT scan suggestive of gastroenteritis * Peripheral vascular disease with dry gangrene, with ultrasound showing severe SFA occlusion patient not a candidate for invasive workup * Ischemic heart disease in the past with paroxysmal atrial fibrillation now in junctional rhythm probably complicated by hyperkalemia * Sig electrolyte abnormality * Prob uti * Hypertension hypothyroidism * Severe anemia * SEvere RA was on steroid and prior MTX use RECOMMENDATION * Continue IV fluids with bicarbonate with D5 water * Continue other current medications * Continue hydrocortisone * Continue other medications * No vascular intervention needed at this time * If diarrhea persist we will have gastroenterology consult tomorrow * Check stool for cdiff, culture, o and p, * Recheck blood work tonight * Prog guarded * Pts prior wishes and daughters wishes were to not go through any agg measures and only conservative mgt for now DNR and DNI Pt is critically ill TTS 40 mins Consult Acknowledgment - Thank you for your consult request.
--- NOTE | 2017-07-04 10:34 | PN- Nephrology ---
Assessment/Plan Nephrology Assessment: JULES - Likely 2/2 ischemic ATN in the setting of significant diarrhea. No clear dialytic need - family also declining dialysis. Anion gap met acidosis - Likely 2/2 renal failure with contribution of diarrhea. Saline solution worsening the diarrhea. Stage IV CKD - baseline Cr around 2 - renal US suggestive of chronicity of disease. Diarrhea - Underlying etiology remains unclear. Suggestion: -Switch to D5W + 150meq sodium bicarb - can run at 100cc/hr -No plans for dialysis - family in agreement Please call [phone] with ?'s Subjective Subjective: SCr stable at 2.3 200cc UOP BP low DNR/DNI code status Bicarb 7 - on D5 NS IVF - lactate normal, UA neg for ketones Objective Vital Signs and I&Os Vital Signs Date Time Temp Pulse Resp B/P B/P Pulse O2 O2 Flow FiO2 Mean Ox Delivery Rate 07/04 0400 95 Room Air 07/04 0000 Room Air 07/03 2302 104/40 07/03 2220 96.7 60 18 86/40 96 Room Air 07/03 1600 Room Air 07/03 1350 90/40 07/03 1236 97.4 68 18 80/40 93 Room Air 07/03 1041 98.2 88 18 136/88 07/03 1040 98.2 88 18 136/88 99 Nasal 2.0L Cannula Intake & Output 07/04 1600 07/04 0400 07/03 1600 07/03 0400 07/02 1600 07/02 0400 Intake Total 720 350 500 Output Total 70 250 Balance 720 350 430 -250 Intake, IV 720 300 500 Intake, Oral 50 Output, Urine 70 250 Patient 98 lb 93 lb Weight Weight Estimated Reported by Patient Measurement Method Physical Exam: Gen - frail appearing HEENT - dry mouth CV - RRR, no m/r/g Chest - clear anteriorly Abd - soft, NTND Ext - no edema Neuro - drowsy but conversive Current Medications: Current Medications Sig/Delphine Start time Last Medication Dose Route Stop Time Status Admin Amiodarone HCl 200 MG DAILY 07/03 1000 AC 07/03 PO 1041 Aspirin Buffered 81 MG DAILY 07/03 1000 DC 07/03 PO 1041 Atorvastatin Calcium 10 MG 1700 07/03 1700 AC 07/03 PO 1716 Ceftriaxone Sodium 1,000 MG Q24H 07/03 2030 AC 07/03 IV 2040 Cilostazol 50 MG BID 07/02 2322 AC 07/03 PO 2049 Dextrose/Sodium 1,000 ML Q13H 07/03 1200 AC 07/04 Chloride IV 0308 Heparin Sodium 5,000 UNIT Q8 07/03 0600 DC 07/03 (Porcine) SC 205 Hydrocortisone 50 MG Q8 07/03 220 AC 07/04 Sodium Succinate IV 0526 Hydrocortisone 100 MG ONE ONE 07/03 1400 DC 07/03 Sodium Succinate IV 07/03 1401 1740 Latanoprost 1 GTT AT BEDTIME 07/03 220 AC 07/03 OPH 205 Levothyroxine Sodium 0.05 MG DAILY AC 07/03 0700 AC 07/04 PO 0616 Melatonin 3 MG QPM 07/03 2200 AC 07/03 PO 2048 Mirtazapine 7.5 MG QPM 07/03 2200 AC 07/03 PO 2049 Omeprazole 20 MG DAILY AC 07/03 0700 AC 07/04 PO 0616 Prednisone 2.5 MG DAILY 07/03 1000 DC 07/03 PO 1041 Sodium Chloride 250 ML BOLUS ONE 07/04 0915 DC 07/04 IV 07/04 1014 0918 Sodium Chloride 250 ML BOLUS ONE 07/04 0245 DC 07/04 IV 07/04 0344 0308 Sodium Chloride 500 ML BOLUS ONE 07/03 2145 DC IV 07/03 2244 Sodium Chloride 500 ML BOLUS ONE 07/03 1330 DC 07/03 IV 07/03 1429 1330 Sodium Chloride 1,000 ML Q13H 07/02 2330 DC 07/03 IV 07/04 0129 1230 Timolol Maleate 1 GTT BID 07/02 2324 AC 07/03 OPH 2104 Results Pertinent Lab Results: Laboratory Tests 07/04 07/04 07/03 07/03 0800 0427 2255 1920 Chemistry Sodium (137 - 145 mmol/L) 144 143 Potassium (3.5 - 5.1 mmol/L) 5.4 H 5.4 H Chloride (98 - 107 mmol/L) 123 H 122 H Carbon Dioxide (22 - 30 mmol/L) 7 *L 8 *L Anion Gap (5 - 16) 14 13 BUN (7 - 17 mg/dL) 97 H 95 H Creatinine (0.5 - 1.0 mg/dL) 4.3 H 4.6 H Estimated GFR (>60 ml/min) 10 L 9 L BUN/Creatinine Ratio (7 - 25 %) 20.7 Glucose (65 - 99 mg/dL) 169 H Lactic Acid (0.7 - 2.1 mmol/L) 0.9 1.0 Calcium (8.4 - 10.2 mg/dL) 7.0 L Phosphorus (2.5 - 4.5 mg/dL) 7.3 H Magnesium (1.6 - 2.3 mg/dL) 1.7 Total Bilirubin (0.2 - 1.3 mg/dL) 0.5 AST (14 - 36 U/L) 31 ALT (9 - 52 U/L) 41 Albumin (3.5 - 5.0 g/dL) 1.9 L Hematology CBC w Diff NO MAN DIFF REQ WBC (4.8 - 10.8 /CUMM) 8.1 RBC (4.20 - 5.40 /CUMM) 3.51 L Hgb (12.0 - 16.0 G/DL) 10.0 L Hct (37 - 47 %) 31.0 L MCV (81.0 - 99.0 FL) 88.5 MCH (27.0 - 31.0 PG) 28.4 MCHC (33.0 - 37.0 G/DL) 32.1 L RDW (11.5 - 14.5 %) 16.8 H Plt Count (130 - 400 /CUMM) 131 MPV (7.4 - 10.4 FL) 9.2 Gran % (42.2 - 75.2 %) 77.5 H Lymphocytes % (20.5 - 51.1 %) 21.7 Monocytes % (1.7 - 9.3 %) 0.6 L Eosinophils % (0 - 5 %) 0 Basophils % (0.0 - 2.0 %) 0.2 Absolute Granulocytes (1.4 - 6.5 /CUMM) 6.3 Absolute Lymphocytes (1.2 - 3.4 /CUMM) 1.8 Absolute Monocytes (0.10 - 0.60 /CUMM) 0 L Absolute Eosinophils (0.0 - 0.7 /CUMM) 0 Absolute Basophils (0.0 - 0.2 /CUMM) 0 07/03 07/03 07/02 0554 0031 1635 Chemistry Sodium (137 - 145 mmol/L) 143 Potassium (3.5 - 5.1 mmol/L) 4.9 Chloride (98 - 107 mmol/L) 122 H Carbon Dioxide (22 - 30 mmol/L) 10 L Anion Gap (5 - 16) 11 BUN (7 - 17 mg/dL) 100 H Creatinine (0.5 - 1.0 mg/dL) 4.2 H Estimated GFR (>60 ml/min) 10 L BUN/Creatinine Ratio (7 - 25 %) 23.8 Troponin I (< 0.11 ng/ml) 0.04 0.04 Cortisol AM Sample (4.46 - 22.7 ug/dL) 7.8 Hematology CBC w Diff MAN DIFF ORDERED WBC (4.8 - 10.8 /CUMM) 13.5 H RBC (4.20 - 5.40 /CUMM) 3.55 L Hgb (12.0 - 16.0 G/DL) 10.4 L Hct (37 - 47 %) 31.6 L MCV (81.0 - 99.0 FL) 89.1 MCH (27.0 - 31.0 PG) 29.3 MCHC (33.0 - 37.0 G/DL) 32.8 L RDW (11.5 - 14.5 %) 16.4 H Plt Count (130 - 400 /CUMM) 132 MPV (7.4 - 10.4 FL) 9.2 Segmented Neutrophils (42.2 - 75.2 %) 66 Lymphocytes (20.5 - 51.1 %) 28 Monocytes (1.7 - 9.3 %) 4 Basophils (0.0 - 2.0 %) 2 Platelet Estimate (ADEQUATE) ADEQUATE Polychromasia 1+ Hypochromic-Microcytic 1+ Poikilocytosis 2+ Ovalocytes 1+ [place] Cells 1+ Other Body Source Fld Total RBCs Counted (%) 100 Urines Ur Eosinophil Smear (NONE) OCC EOS SEEN 07/02 07/02 1635 1635 Urines Urine Color (YEL,AMB,STR) YEL Urine Clarity (CLEAR) CLDY H Urine pH (5.0 - 8.0) 6.0 Ur Specific [place] (1.001 - 1.035) 1.025 Urine Protein (NEG,<30 MG/DL) 100 H Urine Ketones (NEG) NEG Urine Nitrite (NEG) NEG Urine Bilirubin (NEG) NEG Urine Urobilinogen (0.1 - 1.0 EU/dl) 0.2 Ur Leukocyte Esterase (NEG) MOD H Ur Microscopic SEDIMENT EXAMINED Urine RBC (0 - 5 /HPF) 15-25 H Urine WBC (0 - 2 /HPF) > 75 H Ur Epithelial Cells (NONE,FEW) RARE Urine Bacteria (NEG/NONE) FEW H Micro UA Comment MORE INFO: H Urine Hemoglobin (NEG) LARGE H Ur Random Creatinine (mg/dL) 76.4 Ur Random Sodium (30 - 90 mmol/L) 26 L Ur Random Potassium (mmol/L) 33.2 Fraction Sodium Excret (<1% %) 1.0 Urine Glucose (N MG/DL) NEG 07/02 07/02 1517 1445 Chemistry Sodium (137 - 145 mmol/L) 141 Potassium (3.5 - 5.1 mmol/L) 5.2 H Chloride (98 - 107 mmol/L) 117 H Carbon Dioxide (22 - 30 mmol/L) 11 L Anion Gap (5 - 16) 13 BUN (7 - 17 mg/dL) 99 H Creatinine (0.5 - 1.0 mg/dL) 4.3 H Estimated GFR (>60 ml/min) 10 L BUN/Creatinine Ratio (7 - 25 %) 23.0 Glucose (65 - 99 mg/dL) 113 H Calcium (8.4 - 10.2 mg/dL) 7.8 L Total Bilirubin (0.2 - 1.3 mg/dL) 0.5 GGT (12 - 43 U/L) 510 H AST (14 - 36 U/L) 36 ALT (9 - 52 U/L) 34 Alkaline Phosphatase (<127 U/L) 367 H Troponin I (< 0.11 ng/ml) 0.03 Total Protein (6.3 - 8.2 g/dL) 5.4 L Albumin (3.5 - 5.0 g/dL) 2.1 L Globulin (1.9 - 4.2 gm/dL) 3.3 Albumin/Globulin Ratio (1.1 - 2.2 %) 0.6 L Free T4 (0.85 - 1.93 ng/dL) 1.93 Total T3 (0.97 - 1.69 ng/mL) 0.41 L TSH &T3 &Free T4 Intrp (0.270 - 4.20 uIU/mL) 9.820 H Hematology CBC w Diff NO MAN DIFF REQ WBC (4.8 - 10.8 /CUMM) 12.1 H RBC (4.20 - 5.40 /CUMM) 4.01 L Hgb (12.0 - 16.0 G/DL) 11.7 L Hct (37 - 47 %) 35.6 L MCV (81.0 - 99.0 FL) 88.7 MCH (27.0 - 31.0 PG) 29.1 MCHC (33.0 - 37.0 G/DL) 32.8 L RDW (11.5 - 14.5 %) 16.9 H Plt Count (130 - 400 /CUMM) 170 MPV (7.4 - 10.4 FL) 9.7 Gran % (42.2 - 75.2 %) 63.6 Lymphocytes % (20.5 - 51.1 %) 30.3 Monocytes % (1.7 - 9.3 %) 3.6 Eosinophils % (0 - 5 %) 1.0 Basophils % (0.0 - 2.0 %) 1.5 Absolute Granulocytes (1.4 - 6.5 /CUMM) 7.7 H Absolute Lymphocytes (1.2 - 3.4 /CUMM) 3.7 H Absolute Monocytes (0.10 - 0.60 /CUMM) 0.4 Absolute Eosinophils (0.0 - 0.7 /CUMM) 0.1 Absolute Basophils (0.0 - 0.2 /CUMM) 0.2 Imaging/Other Studies: EXAM TYPE: US - US-RENAL/KIDNEY EXAMINATION: RENAL ULTRASOUND CLINICAL INFORMATION: Worsening renal function. COMPARISON: Abdominal pelvic CT from 12/25/2016. TECHNIQUE: Real-time imaging of the kidneys and bladder. FINDINGS: RIGHT KIDNEY: There is no nephrolithiasis. There is diffuse renal cortical thinning. There is mild pelviectasis and upper pole caliectasis. The right kidney measures 7.9 cm. LEFT KIDNEY: There is neither hydronephrosis nor nephrolithiasis. There is mild diffuse renal cortical thinning. There is a likely cyst within the lower pole measuring approximately 10 mm. The left kidney measures 7.7 cm. BLADDER: The urinary bladder is partially filled with a trabeculated bladder. OTHER: There is ascites noted within the right upper quadrant. There is a moderate left pleural effusion identified. There is also free fluid within the left upper quadrant. IMPRESSION: Right greater than left bilateral renal cortical thinning. Mild right pelviectasis and upper pole caliectasis. No nephrolithiasis within either kidney. Trabeculated urinary bladder which is partially filled. Abdominal ascites and left pleural effusion.
--- NOTE | 2017-07-04 11:20 | Cons- Vascular Surgery ---
General Information and HPI Consulting Request Date of Consult: 07/04/17 Requested By: Miquel BLANCO,Deandre Ralph History of Present Illness: 86-year-old lady with multiple medical issues who was admitted to the hospital with weakness nausea vomiting and diarrhea. According to the patient's daughter , she has not walked for about 4 weeks due to weakness. Her history is consistent with myelodysplastic syndrome, chronic kidney disease, A. fib, CVA and CAD. Past surgical consult is regarding right fifth toe ischemia. 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 This has been quite stable. A year ago, another vascular surgeon Dr. Elmore offered an amputation which was refused. Plain x-ray of the foot did not show any evidence of osteomyelitis. Allergies/Medications Allergies: Coded Allergies: NO KNOWN ALLERGIES (02/15/11) Home Med List: Amiodarone (Cordarone) 200 MG TABLET 1 TAB PO DAILY HEART (Reported) Aspirin (Ecotrin*) 81 MG TABLET.DR 1 TAB PO DAILY HEART/BLOOD (Reported) Atorvastatin Calcium (Lipitor) 10 MG TABLET 1 TAB PO DAILY CHOLESTEROL ( Reported) Cilostazol 50 MG TABLET 1 TAB PO BID BLOOD FLOW (Reported) Guaifenesin/Dextromethorphan (Guaifenesin Dm Syrup) 100 MG-10 MG/5 ML SYRUP 10 ML PO Q4H PRN COUGH/MUCUS (Reported) Latanoprost 0.005 % DROPS 1 GTT OU DAILY BOTH EYES (Reported) Levothyroxine Sodium (Synthroid) 50 MCG TABLET 1 TAB PO DAILY AC THYROID ( Reported) Magnesium Hydroxide (Milk Of Magnesia) 400 MG/5 ML ORAL.SUSP 30 ML PO Q3D PRN CONSTIPATION (Reported) Melatonin 3 MG TABLET 1 TAB PO QPM SLEEP (Reported) Mirtazapine 15 MG TABLET 0.5 TAB PO QPM APPETITE (Reported) Na Phos,M-B/Na Phos,Di-Ba (Fleet Enema) 19 GRAM-7 GRAM/118 ML ENEMA 1 E RC DAILY PRN CONSTIPATION (Reported) Naloxone HCl (Narcan) 4 MG/ACTUATION SPRAY 4 MG EDVIN AD PRN OPIOID INDUCED RESP. DEPRESSIO (Reported) Omeprazole 20 MG CAPSULE.DR 1 CAP PO DAILY GI (Reported) Prednisone 2.5 MG TABLET 1 TAB PO DAILY RA (Reported) Saccharomyces Boulardii (Florastor) 250 MG CAPSULE 1 CAP PO BID GI (Reported) Timolol (Betimol) 0.5 % DROPS 1 GTT OPH BID EYE (Reported) Past History Medical History Blood Transfusion Hx: No Neurological: CVA Cardiovascular: AFIB, CAD, hyperlipidemia, myocardial infarction, PVD Respiratory: NONE Gastrointestinal: colitis, constipation, GERD, peptic ulcer disease Hepatic: NONE Renal: nephrolithiasis, she had urinary obstruction in the past requiring placement of stents she also had an episode of sepsis of urinary origin. This required transfer to the ICU. renal artery stenosis Musculoskeletal: rheumatoid arthritis (diagnosed in 1993), sciatica Psychiatric: NONE Endocrine: hypothyroidism Blood Disorders: anemia, biopsy-proven myelodysplastic syndrome Other Medical Hx: Rheumatoid arthritis Surgical History Pertinent Surgical History: appendectomy, cataract removal, ureteral stent placement multiple cardiac stents Psychosocial History Where Do You Live? Extended [facility] Services at Home: None Smoking Status: Never Smoked ETOH Use: denies use Illicit Drug Use: denies illicit drug use Review of Systems Review of Systems: Patient denies headache, dizziness, cough, palpitation, admits to diarrhea, denies constipation. Exam & Diagnostic Data Vital Signs and I&O Vital Signs Date Time Temp Pulse Resp B/P B/P Pulse O2 O2 Flow FiO2 Mean Ox Delivery Rate 07/04 0400 95 Room Air 07/04 0000 Room Air 07/03 2302 104/40 07/03 2220 96.7 60 18 86/40 96 Room Air 07/03 1600 Room Air 07/03 1350 90/40 07/03 1236 97.4 68 18 80/40 93 Room Air Intake & Output 07/04 1600 07/04 0800 07/04 0000 07/03 1600 07/03 0800 07/03 0000 Intake Total 720 350 500 Output Total 70 70 180 Balance 720 350 430 -70 -180 Intake, IV 720 300 500 Intake, Oral 50 Output, Urine 70 70 180 Patient 98 lb Weight Weight Estimated Measurement Method Physical Exam: Patient is alert. Lungs: Decreased breath sounds bilaterally. Cardiac: Irregular. Lung: Soft, nontender nondistended Extremities: Residual gangrene of the right fifth toe. Bilateral feet feel cool to touch. There are weak femoral pulses bilaterally. 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 She has a history of chronic kidney disease with creatinine of 4.3. Her GFR is 10. At this time, she is not a good candidate for any revascularization. Given the chronic and stable nature of the right fifth toe, I think is reasonable to observe the patient at this time. Recommendation: Arterial ultrasound of the right lower extremity Podiatry consultation Consult Acknowledgment - Thank you for your consult request. Attending MD Review Statement Attending Statement Attending MD Statement: examined this patient, discuss w/resident/PA/SILK SPREADER
[2017-07-04 12:00] VITALS: BP 102/46
--- NOTE | 2017-07-04 12:08 | PN- Cardiology ---
Jose BLANCO,[facility] 07/04/17 1140: Subjective Subjective: Patient was seen and examined this morning, she feels tired, denied any chest pain, short of breath, palpitation. Continue to have diarrhea, no nausea or vomiting. Patient has profound low bicarbonate, was started on IV bicarbonate. Objective Vital Signs and I&Os Vital Signs Date Time Temp Pulse Resp B/P B/P Pulse O2 O2 Flow FiO2 Mean Ox Delivery Rate 07/04 0400 95 Room Air 07/04 0000 Room Air 07/03 2302 104/40 07/03 2220 96.7 60 18 86/40 96 Room Air 07/03 1600 Room Air 07/03 1350 90/40 07/03 1236 97.4 68 18 80/40 93 Room Air Intake & Output 07/04 0807/04 0000 07/03 1600 07/03 0800 07/03 0000 Intake Total 720 350 500 Output Total 70 70 180 Balance 720 350 430 -70 -180 Intake, IV 720 300 500 Intake, Oral 50 Output, Urine 70 70 180 Patient 44.452 kg Weight Weight Estimated Measurement Method Physical Exam: Gen. no acute distress Cardiovascular S1-S2 regular, no murmur Lung Clear bilateral, no wheeze Abdomen soft, positive bowel sounds LE peripheral pulses palpable, trace pedal edema on left LE Current Medications: Current Medications Sig/Delphine Start time Last Medication Dose Route Stop Time Status Admin Amiodarone HCl 200 MG DAILY 07/03 1000 AC 07/03 PO 1041 Aspirin Buffered 81 MG DAILY 07/03 1000 DC 07/03 PO 1041 Atorvastatin Calcium 10 MG 1700 07/03 1700 AC 07/03 PO 1716 Ceftriaxone Sodium 1,000 MG Q24H 07/03 2030 AC 07/03 IV 07/05 0000 2040 Cilostazol 50 MG BID 07/02 2322 AC 07/03 PO 2049 Dextrose/Lactated 1,000 ML Q13H 07/04 1030 AC 07/04 Ringer's IV 1142 Dextrose/Sodium 1,000 ML Q13H 07/03 1200 DC 07/04 Chloride IV 0308 Heparin Sodium 5,000 UNIT Q8 07/03 0600 DC 07/03 (Porcine) SC 2055 Hydrocortisone 50 MG Q8 07/03 2200 AC 07/04 Sodium Succinate IV 0526 Hydrocortisone 100 MG ONE ONE 07/03 1400 DC 07/03 Sodium Succinate IV 07/03 1401 1740 Latanoprost 1 GTT AT BEDTIME 07/03 2200 AC 07/03 OPH 2057 Levothyroxine Sodium 0.05 MG DAILY AC 07/03 0700 AC 07/04 PO 0616 Melatonin 3 MG QPM 07/03 2200 AC 07/03 PO 2048 Mirtazapine 7.5 MG QPM 07/03 2200 AC 07/03 PO 2049 Omeprazole 20 MG DAILY AC 07/03 0700 AC 07/04 PO 0616 Prednisone 2.5 MG DAILY 07/03 1000 DC 07/03 PO 1041 Sodium Bicarbonate 150 MEQ Q10H 07/04 1130 AC Dextrose/Water 1,000 ML IV Sodium Chloride 250 ML BOLUS ONE 07/04 0915 DC 07/04 IV 07/04 1014 0918 Sodium Chloride 250 ML BOLUS ONE 07/04 0245 DC 07/04 IV 07/04 0344 0308 Sodium Chloride 500 ML BOLUS ONE 07/03 2145 DC IV 07/03 2244 Sodium Chloride 500 ML BOLUS ONE 07/03 1330 DC 07/03 IV 07/03 1429 1330 Sodium Chloride 1,000 ML Q13H 07/02 2330 DC 07/03 IV 07/04 0129 1230 Timolol Maleate 1 GTT BID 07/02 2324 AC 07/03 OPH 2104 Results Last 48 Hrs of Labs/Mics: Laboratory Tests 07/04/17 0800: Anion Gap 14, Estimated GFR 10 L, Glucose 169 H, Calcium 7.0 L, Phosphorus 7.3 H, Magnesium 1.7, Total Bilirubin 0.5, AST 31, ALT 41, Albumin 1.9 L 07/04/17 0427: Anion Gap 13, Estimated GFR 9 L, BUN/Creatinine Ratio 20.7, CBC w Diff NO MAN DIFF REQ, RBC 3.51 L, MCV 88.5, MCH 28.4, MCHC 32.1 L, RDW 16.8 H, MPV 9.2, Gran % 77.5 H, Lymphocytes % 21.7, Monocytes % 0.6 L, Eosinophils % 0, Basophils % 0.2, Absolute Granulocytes 6.3, Absolute Lymphocytes 1.8, Absolute Monocytes 0 L, Absolute Eosinophils 0, Absolute Basophils 0 07/03/17 2255: Lactic Acid 0.9 07/03/17 1920: Lactic Acid 1.0 07/03/17 0554: Anion Gap 11, Estimated GFR 10 L, BUN/Creatinine Ratio 23.8, Troponin I 0.04, Cortisol AM Sample 7.8, CBC w Diff MAN DIFF ORDERED, RBC 3.55 L, MCV 89.1, MCH 29.3, MCHC 32.8 L, RDW 16.4 H, MPV 9.2, Segmented Neutrophils 66, Lymphocytes 28, Monocytes 4, Basophils 2, Platelet Estimate ADEQUATE, Polychromasia 1+, Hypochromic-Microcytic 1+, Poikilocytosis 2+, Ovalocytes 1+, [place] Cells 1+, Fld Total RBCs Counted 100 07/03/17 0031: Troponin I 0.04 07/02/17 1635: Ur Eosinophil Smear OCC EOS SEEN 07/02/17 1635: Urine Color YEL, Urine Clarity CLDY H, Urine pH 6.0, Ur Specific [place] 1.025, Urine Protein 100 H, Urine Ketones NEG, Urine Nitrite NEG, Urine Bilirubin NEG, Urine Urobilinogen 0.2, Ur Leukocyte Esterase MOD H, Ur Microscopic SEDIMENT EXAMINED, Urine RBC 15-25 H, Urine WBC > 75 H, Ur Epithelial Cells RARE, Urine Bacteria FEW H, Micro UA Comment MORE INFO: H, Urine Hemoglobin LARGE H, Urine Glucose NEG 07/02/17 1635: Ur Random Creatinine 76.4, Ur Random Sodium 26 L, Ur Random Potassium 33.2, Fraction Sodium Excret 1.0 07/02/17 1517: Anion Gap 13, Estimated GFR 10 L, BUN/Creatinine Ratio 23.0, Glucose 113 H, Calcium 7.8 L, Total Bilirubin 0.5, GGT 510 H, AST 36, ALT 34, Alkaline Phosphatase 367 H, Troponin I 0.03, Total Protein 5.4 L, Albumin 2.1 L, Globulin 3.3, Albumin/Globulin Ratio 0.6 L, Free T4 1.93, Total T3 0.41 L, TSH &T3 &Free T4 Intrp 9.820 H 07/02/17 1445: CBC w Diff NO MAN DIFF REQ, RBC 4.01 L, MCV 88.7, MCH 29.1, MCHC 32.8 L, RDW 16.9 H, MPV 9.7, Gran % 63.6, Lymphocytes % 30.3, Monocytes % 3.6, Eosinophils % 1.0, Basophils % 1.5, Absolute Granulocytes 7.7 H, Absolute Lymphocytes 3.7 H, Absolute Monocytes 0.4, Absolute Eosinophils 0.1, Absolute Basophils 0.2 Recent Imaging Studies: EXAM TYPE: CARD - ECHOCARDIOGRAM SELAM VO Age: 86 : 1930 Gender: F Exam Date: 07/03/2017 08:54 Exam Location: ER Ht (in): 61 Wt (lb): 93 BSA: 1.34 BP: 116 / 49 Ordering Physician: Marie Cervantes MD Referring Physician: Marie Cervantes MD Technologist: Jerson Corea NERI Room Number: 7 Indications: MYOCARDIAL ISCHEMIA/WA Rhythm: Sinus Technical Quality: Fair FINDINGS Left Ventricle Normal size left ventricle. No obvious regional wall motion abnormalities. Normal left ventricular ejection fraction estimated at 55-60%. Right Ventricle Right ventricle not well visualized, grossly normal. Right Atrium Normal right atrial size. Left Atrium Left atrial size at the upper limits of normal. Mitral Valve Mild thickening/calcification of the anterior mitral valve leaflet. Severe mitral annular calcification. Mild mitral regurgitation. Aortic Valve Trileaflet aortic valve. Diffuse thickening of the aortic valve cusps with reduced excursion. Tricuspid Valve Tricuspid valve not well visualized, grossly normal. Moderate tricuspid regurgitation. Right ventricular systolic pressure estimated at 48 mmHg. Pulmonic Valve Pulmonic valve not well visualized, grossly normal. Mild pulmonic regurgitation. Pericardium No pericardial effusion. Left pleural effusion. Grade 1: mild ascites. Great Vessels Aortic root and proximal ascending aorta not well visualized, grossly normal. CONCLUSIONS 1. 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 THere does not appear to be any significant valvular stenosis or isufficiency present. THe peak gradient across the aortic outflow tract is 15 mmHg. 2. Thickening and calcification of the mitral leaflets is present with severe anular calcification and mild mitral insufficiency. 3. There is no significant pericardial fluid present. 4. There appears to be a left pleural effusion present. 5. Ascites is also noted on the subcostal images. 6. The left ventricular chamber size and systolic function appear normal. 7. Moderate tricuspid insufficiency is presnet with mild pulmonic insufficiency and an estimated RV systolic pressure of 48 mmHg. 8. An area of echo lucency is noted superior to the left atrial cavity which may represent extension of the pleural fluid, hiatal hernia, etc. CLinical correlation is suggested. Scott Pond M.D. (Electronically Signed) Final Date: 04 July 2017 07:12 MEASUREMENTS (Male / Female) Normal Values 2D ECHO LV Diastolic Diameter PLAX 3.6 cm 4.2 - 5.9 / 3.9 - 5.3 cm LV Systolic Diameter PLAX 2.4 cm 2.1 - 4.0 cm LV Fractional Shortening PLAX 33.3 % 25 - 46 % LV Ejection Fraction 2D Teich 63.0 % IVS Diastolic Thickness 1.0 cm LVPW Diastolic Thickness 0.8 cm LV Relative Wall Thickness 0.5 RV Internal Dim ED PLAX 3.5 cm 1.9 - 3.8 cm LVOT Diameter 2.0 cm Aortic Root Diameter 2.6 cm LA Systolic Diameter LX 3.2 cm 3.0 - 4.0 / 2.7 - 3.8 cm Ascending Aorta Diameter 3.1 cm DOPPLER AV Peak Velocity 179.0 cm/s AV Peak Gradient 12.8 mmHg AV Mean Velocity 116.0 cm/s AV Mean Gradient 6.0 mmHg AV Velocity Time Integral 42.5 cm LVOT Peak Velocity 69.9 cm/s LVOT Peak Gradient 2.0 mmHg LVOT Mean Velocity 42.7 cm/s LVOT Mean Gradient 1.0 mmHg LVOT Velocity Time Integral 17.2 cm LVOT Stroke Volume 54.0 cm AV Area Cont Eq vti 1.3 cm AV Area Cont Eq pk 1.2 cm MV Peak Velocity 105.0 cm/s MV Peak Gradient 4.4 mmHg MV Mean Velocity 59.6 cm/s MV Mean Gradient 2.0 mmHg Mitral E Point Velocity 112.0 cm/s Mitral A Point Velocity 82.4 cm/s Mitral E to A Ratio 1.4 MV PHT Velocity 113.0 cm/s MV Deceleration [place] 335.0 cm/s MV Pressure Half Time 101.2 ms MV Area PHT 2.2 cm MV Deceleration Time 173.0 ms TR Peak Velocity 328.0 cm/s TR Peak Gradient 43.0 mmHg Right Atrial Pressure 5.0 mmHg Pulmonary Artery Systolic Pressu 48.0 mmHg Right Ventricular Systolic Press 48.0 mmHg PV Peak Velocity 102.0 cm/s PV Peak Gradient 4.2 mmHg PV Mean Velocity 63.4 cm/s PV Mean Gradient 2.0 mmHg PV Velocity Time Integral 21.8 cm LV E' Lateral Velocity 5.0 cm/s Mitral E to LV E' Lateral Ratio 22.5 LV E' Septal Velocity 3.7 cm/s Mitral E to LV E' Septal Ratio 30.3 Assessment/Plan Assessment/Plan 1- CAD s/p stent 1996 2- CVA with no neurological deficit 3- paroxysmal atrial fibrillation currently in sinus rhythm 4- hyperlipidemia 5- hypothyroidism 6- chronic renal insufficiency 7- non anion gap metabolic acidosis with profound low bicarbonate 8- hypotension 9- diarrhea 10- hyperkalemia 11- suspected junctional rhythm Recommendation - Please correct potassium level with either calcium gluconate or insulin and dextrose and repeat EKG after metabolic correction - Continue amiodarone 200 mg - Please obtain records from outpatient safety glass installer - Consider holding cilostazol as it can worse the hypotension Continue telemetry? Yes
--- NOTE | 2017-07-04 14:38 | Cons- Neurosurgical ---
General Information and HPI Consulting Request Date of Consult: 07/04/17 Requested By: Miquel BLANCO,Deandre Ralph Reason for Consult: Chronic subdural hematoma Source of Information: old records, EMS Exam Limitations: not alert/orientated, dementia History of Present Illness: 86-year-old right-handed woman is demented transferred to the hospital for deteriorating medical condition has not been able to walk for 4 weeks was also dehydrated and was having diarrhea she was noted in hospital to have full but is felt a worsening of her mental status a CAT scan was obtained showing a chronic subdural which would appear to be larger film obtained a year ago. She is DNR/ DNI Allergies/Medications Allergies: Coded Allergies: NO KNOWN ALLERGIES (02/15/11) Home Med List: Amiodarone (Cordarone) 200 MG TABLET 1 TAB PO DAILY HEART (Reported) Aspirin (Ecotrin*) 81 MG TABLET.DR 1 TAB PO DAILY HEART/BLOOD (Reported) Atorvastatin Calcium (Lipitor) 10 MG TABLET 1 TAB PO DAILY CHOLESTEROL ( Reported) Cilostazol 50 MG TABLET 1 TAB PO BID BLOOD FLOW (Reported) Guaifenesin/Dextromethorphan (Guaifenesin Dm Syrup) 100 MG-10 MG/5 ML SYRUP 10 ML PO Q4H PRN COUGH/MUCUS (Reported) Latanoprost 0.005 % DROPS 1 GTT OU DAILY BOTH EYES (Reported) Levothyroxine Sodium (Synthroid) 50 MCG TABLET 1 TAB PO DAILY AC THYROID ( Reported) Magnesium Hydroxide (Milk Of Magnesia) 400 MG/5 ML ORAL.SUSP 30 ML PO Q3D PRN CONSTIPATION (Reported) Melatonin 3 MG TABLET 1 TAB PO QPM SLEEP (Reported) Mirtazapine 15 MG TABLET 0.5 TAB PO QPM APPETITE (Reported) Na Phos,M-B/Na Phos,Di-Ba (Fleet Enema) 19 GRAM-7 GRAM/118 ML ENEMA 1 E RC DAILY PRN CONSTIPATION (Reported) Naloxone HCl (Narcan) 4 MG/ACTUATION SPRAY 4 MG EDVIN AD PRN OPIOID INDUCED RESP. DEPRESSIO (Reported) Omeprazole 20 MG CAPSULE.DR 1 CAP PO DAILY GI (Reported) Prednisone 2.5 MG TABLET 1 TAB PO DAILY RA (Reported) Saccharomyces Boulardii (Florastor) 250 MG CAPSULE 1 CAP PO BID GI (Reported) Timolol (Betimol) 0.5 % DROPS 1 GTT OPH BID EYE (Reported) Current Medications: Current Medications Sig/Delphine Start time Last Medication Dose Route Stop Time Status Admin Amiodarone HCl 200 MG DAILY 07/03 1000 AC 07/04 PO 1221 Aspirin Buffered 81 MG DAILY 07/03 1000 DC 07/03 PO 1041 Atorvastatin Calcium 10 MG 1700 07/03 1700 AC 07/03 PO 1716 Ceftriaxone Sodium 1,000 MG Q24H 07/03 2030 AC 07/03 IV 07/05 0000 2040 Cilostazol 50 MG BID 07/02 2322 AC 07/03 PO 2049 Dextrose/Lactated 1,000 ML Q13H 07/04 1030 DC 07/04 Ringer's IV 1142 Dextrose/Sodium 1,000 ML Q13H 07/03 1200 DC 07/04 Chloride IV 0308 Heparin Sodium 5,000 UNIT Q8 07/03 0600 DC 07/03 (Porcine) SC 2055 Hydrocortisone 50 MG Q8 07/03 2200 AC 07/04 Sodium Succinate IV 1302 Latanoprost 1 GTT AT BEDTIME 07/03 2200 AC 07/03 OPH 2057 Levothyroxine Sodium 0.05 MG DAILY AC 07/03 0700 AC 07/04 PO 0616 Melatonin 3 MG QPM 07/03 2200 AC 07/03 PO 2048 Mirtazapine 7.5 MG QPM 07/03 2200 AC 07/03 PO 2049 Omeprazole 20 MG DAILY AC 07/03 0700 AC 07/04 PO 0616 Prednisone 2.5 MG DAILY 07/03 1000 DC 07/03 PO 1041 Sodium Bicarbonate 150 MEQ Q10H 07/04 1130 AC 07/04 Dextrose/Water 1,000 ML IV 1302 Sodium Chloride 250 ML BOLUS ONE 07/04 0915 DC 07/04 IV 07/04 1014 0918 Sodium Chloride 250 ML BOLUS ONE 07/04 0245 DC 07/04 IV 07/04 0344 0308 Sodium Chloride 500 ML BOLUS ONE 07/03 2145 DC IV 07/03 2244 Sodium Chloride 500 ML BOLUS ONE 07/03 1330 DC 07/03 IV 07/03 1429 1330 Sodium Chloride 1,000 ML Q13H 07/02 2330 DC 07/03 IV 07/04 0129 1230 Timolol Maleate 1 GTT BID 07/02 2324 AC 07/04 OPH 1221 Past History Medical History Blood Transfusion Hx: No Neurological: CVA EENT: NONE Cardiovascular: AFIB, CAD, hyperlipidemia, myocardial infarction, PVD Respiratory: NONE Gastrointestinal: colitis, constipation, GERD, peptic ulcer disease Hepatic: NONE Renal: nephrolithiasis, she had urinary obstruction in the past requiring placement of stents she also had an episode of sepsis of urinary origin. This required transfer to the ICU. renal artery stenosis Musculoskeletal: rheumatoid arthritis (diagnosed in 1993), sciatica Psychiatric: NONE Endocrine: hypothyroidism Blood Disorders: anemia, biopsy-proven myelodysplastic syndrome Cancer(s): NONE ELECTROMEDICAL EQUIPMENT TECHNICIAN/Reproductive: deferred Other Medical Hx: Rheumatoid arthritis Surgical History Pertinent Surgical History: appendectomy, cataract removal, ureteral stent placement multiple cardiac stents Psychosocial History Where Do You Live? [facility] Services at Home: None Primary Language: Greek Smoking Status: Never Smoked ETOH Use: denies use Illicit Drug Use: denies illicit drug use Living Will? unknown Power of Crate Repairer/HCP? unknown Name of POA/HCP: unknown Functional Ability ADLs Needs Assist: dressing, eating, toileting, bathing. Ambulation: non-ambulatory Employment History Employment: Retired Profession/Employer: homemaker Retired? yes Review of Systems Review of Systems: Not obtainable due to dementia Review of Systems Constitutional: Reports: see HPI. EENTM: Reports: see HPI. Cardiovascular: Reports: see HPI. Respiratory: Reports: see HPI. GI: Reports: see HPI. Genitourinary: Denies: no symptoms. Musculoskeletal: Reports: see HPI. Skin: Reports: see HPI. Neurological/Psychological: Reports: see HPI. Hematologic/Endocrine: Reports: see HPI. Immunologic/Allergic: Reports: see HPI. All Other Systems: Reviewed and Negative Exam & Diagnostic Data Vital Signs and I&O Vital Signs Date Time Temp Pulse Resp B/P B/P Pulse O2 O2 Flow FiO2 Mean Ox Delivery Rate 07/04 1221 66 102/46 07/04 0400 95 Room Air 07/04 0000 Room Air 07/03 2302 104/40 07/03 2220 96.7 60 18 86/40 96 Room Air 07/03 1600 Room Air Intake & Output 07/04 1600 07/04 0800 07/04 0000 07/03 1600 07/03 0800 07/03 0000 Intake Total 720 350 500 Output Total 70 70 180 Balance 720 350 430 -70 -180 Intake, IV 720 300 500 Intake, Oral 50 Output, Urine 70 70 180 Patient 98 lb Weight Weight Estimated Measurement Method Physical Exam: Awake alert Disoriented to date time place Follows commands Cranial nerve symmetrical No pronator drift Hyporeflexic No Saad's or finger flexors Gangrenous foot toes upgoing Physical Exam General Appearance: alert Head: chronic hematic discoloration above her left eye Eyes: Bilateral: normal appearance. Ears, Nose, Throat: normal pharynx Neck: normal inspection Respiratory: normal breath sounds Cardiovascular: femoral pulses palpitated Breasts deferred Peripheral Pulses: 2+ carotid (R), 2+ carotid (L) Gastrointestinal: soft Rectal: deferred Back: no vertebral tenderness Extremities: vascular failure of right foot Neurologic/Psych: disoriented x 3 Cranial Nerves: symmetrical Reflexes: 0: knee (R), knee (L). 1+: bicep (R), bicep (L), tricep (L), tricep (L). Skin: ecchymosis Lymphatic: no anterior cervical natividad Reproductive: deferred Pelvic: deferred Other Physical Findings: None Last 24 Hours of Labs: Laboratory Tests 07/04 07/04 1145 0800 Chemistry Sodium (137 - 145 mmol/L) 144 Potassium (3.5 - 5.1 mmol/L) 5.4 H Chloride (98 - 107 mmol/L) 123 H Carbon Dioxide (22 - 30 mmol/L) 7 *L Anion Gap (5 - 16) 14 BUN (7 - 17 mg/dL) 97 H Creatinine (0.5 - 1.0 mg/dL) 4.3 H Estimated GFR (>60 ml/min) 10 L Glucose (65 - 99 mg/dL) 169 H Calcium (8.4 - 10.2 mg/dL) 7.0 L Phosphorus (2.5 - 4.5 mg/dL) 7.3 H Magnesium (1.6 - 2.3 mg/dL) 1.7 Total Bilirubin (0.2 - 1.3 mg/dL) 0.5 AST (14 - 36 U/L) 31 ALT (9 - 52 U/L) 41 Albumin (3.5 - 5.0 g/dL) 1.9 L Urines Urine Color (YEL,AMB,STR) Pending Urine Clarity (CLEAR) Pending Urine pH (5.0 - 8.0) Pending Ur Specific [place] (1.001 - 1.035) Pending Urine Protein (NEG,<30 MG/DL) Pending Urine Ketones (NEG) Pending Urine Nitrite (NEG) Pending Urine Bilirubin (NEG) Pending Urine Urobilinogen (0.1 - 1.0 EU/dl) Pending Ur Leukocyte Esterase (NEG) Pending Ur Microscopic SEDIMENT EXAMINED Urine RBC (0 - 5 /HPF) Pending Urine Hemoglobin (NEG) Pending Urine Glucose (N MG/DL) Pending 07/04 07/03 07/03 [id number] Chemistry Sodium (137 - 145 mmol/L) 143 Potassium (3.5 - 5.1 mmol/L) 5.4 H Chloride (98 - 107 mmol/L) 122 H Carbon Dioxide (22 - 30 mmol/L) 8 *L Anion Gap (5 - 16) 13 BUN (7 - 17 mg/dL) 95 H Creatinine (0.5 - 1.0 mg/dL) 4.6 H Estimated GFR (>60 ml/min) 9 L BUN/Creatinine Ratio (7 - 25 %) 20.7 Lactic Acid (0.7 - 2.1 mmol/L) 0.9 1.0 Hematology CBC w Diff NO MAN DIFF REQ WBC (4.8 - 10.8 /CUMM) 8.1 RBC (4.20 - 5.40 /CUMM) 3.51 L Hgb (12.0 - 16.0 G/DL) 10.0 L Hct (37 - 47 %) 31.0 L MCV (81.0 - 99.0 FL) 88.5 MCH (27.0 - 31.0 PG) 28.4 MCHC (33.0 - 37.0 G/DL) 32.1 L RDW (11.5 - 14.5 %) 16.8 H Plt Count (130 - 400 /CUMM) 131 MPV (7.4 - 10.4 FL) 9.2 Gran % (42.2 - 75.2 %) 77.5 H Lymphocytes % (20.5 - 51.1 %) 21.7 Monocytes % (1.7 - 9.3 %) 0.6 L Eosinophils % (0 - 5 %) 0 Basophils % (0.0 - 2.0 %) 0.2 Absolute Granulocytes (1.4 - 6.5 /CUMM) 6.3 Absolute Lymphocytes (1.2 - 3.4 /CUMM) 1.8 Absolute Monocytes (0.10 - 0.60 /CUMM) 0 L Absolute Eosinophils (0.0 - 0.7 /CUMM) 0 Absolute Basophils (0.0 - 0.2 /CUMM) 0 Imaging Results: CT scan done just last night demonstrates a small left cerebral convexity hygroma/chronic subdural on a background of severe cerebral atrophy and multiple lacunar infarcts with perhaps some mass effect along the high left parietal sulci Other Results: Vascular failure of her right leg Assessment/Plan Assessment/Plan This woman has a lesion that is not causing any acute changes in her mentation. She is really at baseline. Event since she is DNR/DNI it is actually no reason to consider surgical evacuation under any circumstance Other Findings/Comments: None Copies To: Griselda Vila MD Consult Acknowledgment - Thank you for your consult request.
[2017-07-04 16:00] VITALS: BP 92/44
--- NOTE | 2017-07-04 16:31 | CT SCAN REPORT ---
EXAMINATION: CT ABDOMEN AND PELVIS WITHOUT CONTRAST CLINICAL INFORMATION: Ischemic colitis versus diverticulitis versus GI bleed. 2 weeks of diarrhea, hypotensive, acute kidney injury. COMPARISON: 12/25/2016 TECHNIQUE: Multidetector volumetric imaging was performed from the superior aspect of the liver through the pubic symphysis. Sagittal and coronal reformatted images were obtained on the technologist's workstation. DLP: 250.09 mGy-cm FINDINGS: LUNG BASES: Small bilateral pleural effusions. Dependent atelectasis of the posterior lower lobes. Cardiomegaly. Extensive coronary artery calcifications with possible stenting. Mitral annular calcifications. Thoracic aortic atherosclerotic disease. LIVER, GALLBLADDER, AND BILIARY TREE: The liver is normal in size, shape, and attenuation. No focal hepatic lesion or biliary ductal dilatation is present. The gallbladder is unremarkable with no evidence of radiopaque gallstones, gallbladder wall thickening, or obvious pericholecystic inflammatory changes. PANCREAS: The pancreas is atrophic and otherwise unremarkable. SPLEEN: Unremarkable. ADRENAL GLANDS: Unremarkable. KIDNEYS AND URETERS: Decreased hydronephrosis within the right kidney. There is a double-J right internal ureteral stent seen which appears encrusted along the portion within the bladder. Decreased loculations of gas from the right urinary collecting system. Small left renal calculi are unchanged. No evidence of left hydronephrosis. The kidneys are slightly atrophied, unchanged. BLADDER: The bladder contains a Menard catheter. As described above, there is a double-J right internal ureteral stent and the intravesicular portion of the stent appears encrusted. GASTROINTESTINAL TRACT: Sigmoid diverticulosis. Due to the patient's intra-abdominal ascites, it is difficult to assess whether there is acute diverticulitis as the pericolonic fat is already edematous. No definite areas of colonic wall thickening are appreciated. The appendix is not seen. Few centrally located loops of small bowel with mild dilatation containing succus entericus without definite obstruction. ABDOMINAL WALL: Anasarca is increasing markedly. No significant abdominal wall herniation. Small abdominal ascites. LYMPH NODES: No bulky lymphadenopathy within the abdomen or pelvis. VASCULAR: Extensive calcified atherosclerotic disease of the abdominal aorta and its branch vessels. Patency is unable to be evaluated without IV contrast. PELVIC VISCERA: Unremarkable. OSSEOUS STRUCTURES: Old healed rib fractures. No suspicious or acute osseous abnormality. IMPRESSION: 1. Increasing edema within the intra-abdominal mesenteric and omental fat limits evaluation for acute bowel inflammatory processes. The patient does demonstrate evidence of diverticulosis; however, I cannot confirm definitively whether there is superimposed diverticulitis. There are no areas of obvious bowel wall thickening to suggest acute colitis, although again there is no oral contrast or IV contrast to help in this distinction. The patient does have extensive atherosclerotic disease, however, without IV contrast I cannot assess patency of the vessels. 2. Newly appearing mildly prominent loops of small bowel without definitive evidence of obstruction. Serial abdominal film radiographs are recommended. 3. Small bilateral pleural effusions with dependent atelectasis. 4. Vasculopathic patient. 5. The right hydronephrosis has lessened since the prior study and the gas within the urinary collecting system on the right has resolved. The double-J internal ureteral stent is seen in place with extensive encrustation involving the portion within the bladder. This is similar to the prior studies. Both kidneys appear atrophic, unchanged.
--- NOTE | 2017-07-04 16:44 | ULTRASOUND REPORT ---
EXAMINATION: US DUPLEX LOWER EXTREMITY ARTERY/GRAFT LIMITED, RIGHT CLINICAL INFORMATION: Right 5th toe ischemia. COMPARISON: CT abdomen and pelvis 07/04/2017. TECHNIQUE: Doppler imaging of right leg was performed and Doppler signal was analyzed and velocities were measured in the common femoral artery, profunda femoris artery, proximal mid and distal superficial femoral artery, popliteal artery, anterior tibial artery and peroneal and posterior tibial arteries. FINDINGS: There are no areas of velocity acceleration, flow is monophasic throughout. Very low velocities present in the SFA with no flow measured in the popliteal artery or below. IMPRESSION: There is evidence of marked peripheral vascular disease. Possibly due to SFA occlusions. At the time of the prior CT, marked atherosclerotic calcifications were present. Would recommend CT angiography or MR angiography for evaluation.
[2017-07-05] VITALS: BP 84/58
[2017-07-05 06:04] LABS: ABSOLUTE BASOPHIL COUNT 0.1 /CUMM (0.0-0.2); ABSOLUTE EOSINOPHIL COUNT 0 /CUMM (0.0-0.7); ABSOLUTE GRANULOCYTE CT 7.3 /CUMM (1.4-6.5); ABSOLUTE LYMPH COUNT 1.8 /CUMM (1.2-3.4); ABSOLUTE MONOCYTE COUNT 0.2 /CUMM (0.10-0.60); BASOPHIL % 0.6 % (0.0-2.0); EOSINOPHIL % 0 % (0-5); HEMATOCRIT 26.6 % (37-47); MEAN CORPUSCULAR HGB 28.7 PG (27.0-31.0); MEAN CORPUSCULAR HGB CONC 32.7 G/DL (33.0-37.0); MEAN CORPUSCULAR VOLUME 87.7 FL (81.0-99.0); MEAN PLATELET VOLUME 9.2 FL (7.4-10.4); PLATELET COUNT 106 /CUMM (130-400); RBC DISTRIBUTION WIDTH 16.4 % (11.5-14.5); RED BLOOD CELL CT 3.03 /CUMM (4.20-5.40); WHITE BLOOD CELL COUNT 9.3 /CUMM (4.8-10.8)
--- NOTE | 2017-07-05 07:38 | PN- Endocrinology ---
Assessment/Plan Endoscopy Assessment: The patient is sleeping this morning. Her daughter was at the bedside. Her blood pressure has been up and down. She remains on Solu-Cortef 50 mg IV every 8 hours. Her blood sugars have become somewhat elevated in the 250 range in the lab this morning it was 185.. The patient was on a bicarbonate drip but this has been stopped and she is now on D5 lactated Ringer's. Her creatinine is 4.3 today. Her albumin is low at 1.7. The patient underwent a CT scan of the abdomen. Once again ascites was seen. There is diverticulosis. It is difficult to tell whether the patient has any inflammation in the bowel because of the ascites which causes edema. Plan: Suggest continue Soluortef 50 mg IV every 8 hours. Continue to hydrate carefully with IV fluids. The patient's serum albumin is very low causing a lot of tissue edema. Ascites is extensive. In view of the elevated blood sugar, we can place the patient on low-dose regular insulin coverage every 6 hours starting with a glucose above 180. Regular insulin coverage sliding scale would be less than 180 no insulin, 181- 250 give 3 units regular, 251-300 give 4 units regular, 301-350 give 5 units regular, 351-400 give 6 units regular. Keep glucose in the IV. Subjective Subjective: Sleeping this morning Objective Last 24 Hrs of Vital Signs/I&O Vital Signs Date Time Temp Pulse Resp B/P B/P Pulse O2 O2 Flow FiO2 Mean Ox Delivery Rate 07/05 0000 98.4 63 22 84/58 97 Room Air 07/05 0000 97 Room Air 07/04 2000 96 Room Air 07/04 1600 96 Room Air 07/04 1600 98.9 64 18 92/44 96 Room Air 07/04 1221 66 102/46 03/01 1200 97 Room Air / 1200 99.0 66 16 102/46 97 Room Air / 0800 97.9 66 18 92/34 98 Room Air 07/04 0800 98 Room Air Intake & Output 07/05 0800 /02 0000 07/04 1600 Intake Total 1501 1356 Output Total 28 25 Balance 1473 1331 Intake, IV 1401 1206 Intake, Oral 100 150 Number 4 3 Bowel Movements Output, Urine 28 25 Patient 99 lb 1.99 oz 98 lb 2 oz Weight Weight Bed scale Measurement Method Vital Signs Date Time Temp Pulse Resp B/P B/P Pulse O2 O2 Flow FiO2 Mean Ox Delivery Rate 07/05 0000 98.4 63 22 84/58 97 Room Air 07/05 0000 97 Room Air 07/04 2000 96 Room Air 07/04 1600 96 Room Air 07/04 1600 98.9 64 18 92/44 96 Room Air 07/04 1221 66 102/46 03/ 1200 97 Room Air 07/04 1200 99.0 66 16 102/46 97 Room Air 07/04 0800 97.9 66 18 92/34 98 Room Air 07/04 0800 98 Room Air Intake & Output 07/05 0800 / 0000 07/04 1600 Intake Total 1501 1356 Output Total 28 25 Balance 1473 1331 Intake, IV 1401 1206 Intake, Oral 100 150 Number 4 3 Bowel Movements Output, Urine 28 25 Patient 99 lb 1.99 oz 98 lb 2 oz Weight Weight Bed scale Measurement Method Physical Exam General Appearance: comfortable, sleeping Head: normal appearance Respiratory: decreased breath sounds (left baser) Cardiovascular: regular rate/rhythm Extremities: ischemic right foot Current Medications: Current Medications Sig/Delphine Start time Last Medication Dose Route Stop Time Status Admin Amiodarone HCl 200 MG DAILY 07/03 1000 AC 07/04 PO 1221 Atorvastatin Calcium 10 MG 1700 07/03 1700 AC 07/04 PO 1710 Ceftriaxone Sodium 1,000 MG Q24H 07/03 2030 DC 07/04 IV 07/05 0000 2117 Cilostazol 50 MG BID 07/02 2322 DC 07/03 PO 2049 Dextrose/Lactated 1,000 ML .Q8H 07/04 2300 AC 07/05 Ringer's IV 0652 Dextrose/Lactated 1,000 ML Q13H 07/04 1030 DC 07/04 Ringer's IV 1142 Dextrose/Sodium 1,000 ML Q13H 07/03 1200 DC 07/04 Chloride IV 0308 Hydrocortisone 50 MG Q8 07/03 2200 AC 07/05 Sodium Succinate IV 0657 Insulin Human Regular 0 Q6 07/04 1933 AC 07/05 SC 0708 Lactated Ringer's 500 ML .Q2H 07/04 1930 DC 07/04 IV 07/04 2129 1915 Latanoprost 1 GTT AT BEDTIME 07/03 2200 AC 07/04 OPH 2249 Levothyroxine Sodium 0.05 MG DAILY AC 07/03 0700 AC 07/05 PO 0700 Melatonin 3 MG QPM 07/03 2200 AC 07/04 PO 2306 Mirtazapine 7.5 MG QPM 07/03 2200 AC 07/04 PO 2324 Omeprazole 20 MG DAILY AC 07/03 0700 AC 07/05 PO 0700 Sodium Bicarbonate 150 MEQ Q10H 07/04 1130 DC 07/04 Dextrose/Water 1,000 ML IV 1302 Sodium Chloride 250 ML BOLUS ONE 07/04 0915 DC 07/04 IV 07/04 1014 0918 Timolol Maleate 1 GTT BID 07/02 2324 AC 07/04 OPH 2324 Current Treatment: Current Medications Sig/Delphine Start time Last Medication Dose Route Stop Time Status Admin Amiodarone HCl 200 MG DAILY 07/03 1000 AC 07/04 PO 1221 Atorvastatin Calcium 10 MG 1700 07/03 1700 AC 07/04 PO 1710 Ceftriaxone Sodium 1,000 MG Q24H 07/03 2030 DC 07/04 IV 07/05 0000 2117 Cilostazol 50 MG BID 07/02 2322 DC 07/03 PO 2049 Dextrose/Lactated 1,000 ML .Q8H 07/04 2300 AC 07/05 Ringer's IV 0652 Dextrose/Lactated 1,000 ML Q13H 07/04 1030 DC 07/04 Ringer's IV 1142 Dextrose/Sodium 1,000 ML Q13H 07/03 1200 DC 07/04 Chloride IV 0308 Hydrocortisone 50 MG Q8 07/03 2200 AC 07/05 Sodium Succinate IV 0657 Insulin Human Regular 0 Q6 07/04 1933 AC 07/05 SC 0708 Lactated Ringer's 500 ML .Q2H 07/04 1930 DC 07/04 IV 07/04 2129 1915 Latanoprost 1 GTT AT BEDTIME 07/03 220 AC 07/04 OPH 2249 Levothyroxine Sodium 0.05 MG DAILY AC 07/03 0700 AC 07/05 PO 0700 Melatonin 3 MG QPM 07/03 2200 AC 07/04 PO 2306 Mirtazapine 7.5 MG QPM 07/03 220 AC 07/04 PO 2324 Omeprazole 20 MG DAILY AC 07/03 0700 AC 07/05 PO 0700 Sodium Bicarbonate 150 MEQ Q10H 07/04 1130 DC 07/04 Dextrose/Water 1,000 ML IV 1302 Sodium Chloride 250 ML BOLUS ONE 07/04 0915 DC 07/04 IV 07/04 1014 0918 Timolol Maleate 1 GTT BID 07/02 2329 AC 07/04 OPH 2329
[2017-07-05 08:00] VITALS: BP 104/00
--- NOTE | 2017-07-05 08:18 | PN- Resident CRCU ---
Subjective HPI/CRCU Issues: -Patient seen and examined. Sleeping. Easily arousable. The patient's daughter is at her bedside -Tmax 99.0 heart rate ranging in the 50s to 60s sinus bradycardia, sinus rhythm, manual blood pressure ranging 90s-80s/Doppler, 30s to 40s. 98% on room air -Urine output inadequate input around 4000 output around 100 -Overnight patient received 2 bolus of ringer lactate 250ml each for BP 80/ Doppler -Foleys catheter in place, fluid D5WLR running @125ml/h -WBC count 9.3 and platelets 106 Sodium 144 potassium 4.5 sodium 118 HCO3 12 BUN 97 creatinine 4.3 calcium 6.8 phosphorus 5.9 -C. difficile negative. Stool studies pending -CT scan study is limited could not rule in or rule out infection just on its base -UA turbid, leukocyte esterase large urine culture pending -BC x2 negative so far 24 Hour Events: Objective Vital Signs & I&O Last 8 Hrs of Vitals and I&O: Vital Signs Date Time Temp Pulse Resp B/P B/P Pulse O2 O2 Flow FiO2 Mean Ox Delivery Rate 07/05 0400 94 Room Air / 0000 98.4 63 22 84/58 97 Room Air / 0000 97 Room Air 07/04 2000 96 Room Air 07/04 1600 96 Room Air 07/04 1600 98.9 64 18 92/44 96 Room Air 07/04 1221 66 102/46 Intake & Output 07/05 1600 / 0800 07/05 0000 Intake Total 925 1501 Output Total 32 28 Balance 893 1473 Intake, IV 925 1401 Intake, Oral 100 Number 2 4 Bowel Movements Output, Urine 32 28 Patient 99 lb 1.99 oz Weight Weight Bed scale Measurement Method Exam General Appearance: cachetic Head: atraumatic Neck: normal inspection Respiratory: normal breath sounds, chest non-tender, wheezing Cardiovascular: regular rate/rhythm Gastrointestinal: normal bowel sounds, soft, non-tender Extremities: normal inspection Current Medications: Current Medications Sig/Delphine Start time Last Medication Dose Route Stop Time Status Admin Acetaminophen 1,000 MG Q4 07/05 1400 AC 07/05 N/A 1 UNIT IV 07/06 0214 1136 Amiodarone HCl 200 MG DAILY 07/03 1000 DC 07/04 PO 1221 Atorvastatin Calcium 10 MG 1700 07/03 1700 DC 07/04 PO 1710 Ceftriaxone Sodium 1,000 MG Q24H 07/03 2030 DC 07/04 IV 07/05 0000 2117 Cilostazol 50 MG BID 07/02 2322 DC 07/03 PO 2049 Dextrose/Lactated 1,000 ML .[id number] 07/04 2300 DC 07/05 Ringer's IV 0652 Dextrose/Lactated 1,000 ML Q13H 07/04 1030 DC 07/04 Ringer's IV 1142 Hydrocortisone 50 MG Q8 07/03 2200 DC 07/05 Sodium Succinate IV 0657 Insulin Human Regular 0 Q6 07/04 1933 DC 07/05 SC 0708 Lactated Ringer's 500 ML .Q2H 07/04 1930 DC 07/04 IV 07/04 2129 1915 Latanoprost 1 GTT AT BEDTIME 07/03 2200 DC 07/04 OPH 2249 Levothyroxine Sodium 0.05 MG DAILY AC 07/03 0700 DC 07/05 PO 0700 Melatonin 3 MG QPM 07/03 2200 DC 07/04 PO 2306 Mirtazapine 7.5 MG QPM 07/03 2200 DC 07/04 PO 2324 Omeprazole 20 MG DAILY AC 07/03 0700 DC 07/05 PO 0700 Sodium Bicarbonate 150 MEQ Q10H 07/04 1130 DC 07/04 Dextrose/Water 1,000 ML IV 1302 Timolol Maleate 1 GTT BID 07/02 2324 DC 07/04 OPH 2324 Impression/Plan Impression/Problem List Impression: Pt is an 86-year-old woman with a past medical history chronic kidney disease, severe peripheral vascular disease, questionable bilateral renal artery stenosis , paroxysmal atrial fibrillation, coronary artery disease and prior CVA. She presents to our hospital with symptoms of nausea and emesis as well as diarrhea for a period of approximately 2 weeks. She was noted to have acute kidney injury as well as hyperkalemia The patient was transferred to ICU overnight on 07/04 when she was found to have altered mental status with head CT results showing ''Small left cerebral convexity extra-axial fluid collection. Minimal dependent hyperattenuation suggests that this represents an acute on chronic subdural hematoma. This finding is new from 12/25/2016. Mild volume loss with small vessel ischemic changes. Chronic lacunar infarct in the right thalamus." Patient's blood pressure was also 80/40 Her cortisol level was also low therefore she was started on hydrocortisone 100 mg IV bolus followed by 50 mg IV q8 amd was agressively haydrated with NS to maintain BP The patient condition seems to be deteriorating. Her prognosis is guarded. The patient is DNR/DNI, family doesnot wish for pt to be on pressors. After discussion with the family the patient is going to be converted to comfort care we are going to de-escalate care ------ The patient was treated and evaluated for following problems during her stay in ICU Respiratory #Pleural effusion seen on imaging Respiratory status Stable satting in 90s on room air Infection #Possible urinary tract infection Patient has been treated with multiple antibiotics in the past with a history of recurrent UTIs treated with antibiotics. Menard was placed on 07/05 gross pus came out. She presented with leukocytosis and moderate leukoesterase -Fever and WBC count was monitored patient was being managed on ceftriaxone Cardiology #CAD maintained on aspirin and statin #Atrial fibrillation maintained on amiodarone #Hypotension secondary to relative cortisol deficiency and Volume depletion Patient has history of rheumatoid arthritis is on chronic prednisone. She was found to be hypotensive rapid response called overnight. Her blood pressure was found to be 80/40, cortisone level were checked and found to be 7. Patient was given multiple boluses of normal saline in setting of volume depletion secondary to diarrhea and 100 mg IV Solu-Cortef for relative cortisol deficiency. Septic shock unlikely -maintained on hydrocortisone 50 every 8 -no aggressive Measure no central lines no pressors #Ischemic right foot Patient has history of right fifth toe gangrene, stable for years amputation has been offered in the past but patient refused plain x-ray did not show any evidence of vasculitis. Vascular surgery and podiatry consulted -With multiple comorbidities she wasnt candidate for vascularization at this point Hematology #Leukocytosis- Possible source urinary tract infection vs colitis versus diverticulitis #Chronic Anemia in setting of CKD H/H 03/05 around baseline Metabolic/Nephrology #Nonanion gap metabolic acidosis Patient had bicarbonate of 7 her baseline is around 10 her chloride is 123 she had non-anion gap metabolic acidosis likely secondary to diarrhea, hyperchloremia due to normal saline infusion and cortisol deficiency. Her delta delta is a gap is less than 1 and applying anion gap metabolic acidosis as well secondary to renal failure -Patient was initially hydrated with D5W + 150meq sodium bicarb @ 100cc/hr later maintained on D5W+ LR -Nephrology was also consulted patient was not a candidate of dialysis. 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 Her FEENA consistent with ATN -Patient was initially hydrated with D5W + 150meq sodium bicarb @ 100cc/hr later maintained on D5W+ LR #Hyperkalemia Secondary to JULES #Hyperphosphatemia Secondary to JULES #Hypocalcemia Likely secondary to hyperphosphatemia and setting of a JULES Alimantary #Diarrhea Patient presented with complaint of multiple bowel movements about 10. She has been having diarrhea for past 2 and half week. Etiology at this time is unclear. -C. difficile negative -Stool for Ova, parasites, Shigella, salmonella etc. pending -CT scan abdomen and pelvis is limited could not rule in or rule out infection just on its base because of the ascites #Diet regular diet was started but patient did not eat. Neurology #Chronic subdural hematoma Patient was transferred overnight for AMS, in setting of chronic subdural which would appear to be larger on film obtained a year ago. She has been evaluated by the neurosurgery -No Acute intervention at this point DVT Prophylaxis was maintained with Subcutaneous heparin 3 times a day CODE STATUS changed to comfort care Problem List: 1. JULES (acute kidney injury) Pain Ratin Tomorrow's Labs & Rationales: none Plan DVT/Prophylaxis: pharmacological
--- NOTE | 2017-07-05 10:07 | PN- CRCU ---
Subjective HPI/Critical Care Issues: DOing poorly Low bp Pt has worsening mental status familyat the bedside Objective Current Medications: Current Medications Sig/Delphine Start time Last Medication Dose Route Stop Time Status Admin Amiodarone HCl 200 MG DAILY 07/03 1000 AC 07/04 PO 1221 Atorvastatin Calcium 10 MG 1700 07/03 1700 AC 07/04 PO 1710 Ceftriaxone Sodium 1,000 MG Q24H 07/03 2030 DC 07/04 IV 07/05 0000 2117 Cilostazol 50 MG BID 07/02 2322 DC 07/03 PO 2049 Dextrose/Lactated 1,000 ML .[id number] 07/04 2300 AC 07/05 Ringer's IV 0652 Dextrose/Lactated 1,000 ML Q13H 07/04 1030 DC 07/04 Ringer's IV 1142 Dextrose/Sodium 1,000 ML Q13H 07/03 1200 DC 07/04 Chloride IV 0308 Hydrocortisone 50 MG Q8 07/03 2200 AC 07/05 Sodium Succinate IV 0657 Insulin Human Regular 0 Q6 07/04 1933 AC 07/05 SC 0708 Lactated Ringer's 500 ML .Q2H 07/04 1930 DC 07/04 IV 07/04 2129 1915 Latanoprost 1 GTT AT BEDTIME 07/03 220 AC 07/04 OPH 2249 Levothyroxine Sodium 0.05 MG DAILY AC 07/03 0700 AC 07/05 PO 0700 Melatonin 3 MG QPM 07/03 2200 AC 07/04 PO 2306 Mirtazapine 7.5 MG QPM 07/03 2200 AC 07/04 PO 2324 Omeprazole 20 MG DAILY AC 07/03 0700 AC 07/05 PO 0700 Sodium Bicarbonate 150 MEQ Q10H 07/04 1130 DC 07/04 Dextrose/Water 1,000 ML IV 1302 Sodium Chloride 250 ML BOLUS ONE 07/04 0915 DC 07/04 IV 07/04 1014 0918 Timolol Maleate 1 GTT BID 07/02 2324 AC 07/04 OPH 2324 Vital Signs & I&O Last 24 Hrs of Vitals and I&O: Vital Signs Date Time Temp Pulse Resp B/P B/P Pulse O2 O2 Flow FiO2 Mean Ox Delivery Rate 07/05 0400 94 Room Air 07/05 0000 98.4 63 22 84/58 97 Room Air 07/05 0000 97 Room Air 03/01 2000 96 Room Air 07/04 1600 96 Room Air 07/04 1600 98.9 64 18 92/44 96 Room Air 07/04 1221 66 102/46 07/04 1200 97 Room Air 07/04 1200 99.0 66 16 102/46 97 Room Air Intake & Output 07/05 1600 03/02 0800 03/ 0000 Intake Total 925 1501 Output Total 32 28 Balance 893 1473 Intake, IV 925 1401 Intake, Oral 100 Number 2 4 Bowel Movements Output, Urine 32 28 Patient 99 lb 1.99 oz Weight Weight Bed scale Measurement Method Impression/Plan Impression/Plan Impression/Plan: JAZMIN Sleepy Difficult to arouse chest crackles abd distended with asicitis This is an elderly lady with recent fall, chronic subdural hematoma, severe peripheral vascular disease with stable chronic right fifth toe dry gangrene, chronic kidney disease, recent severe gastroenteritis, mild aortic stenosis, coronary artery disease and stent, previous CVA with no neuro deficit, previous paroxysmal atrial fibrillation in sinus rhythm, hyperlipidemia, hypothyroidism, significant non-anion gap metabolic acidosis with profound low bicarbonate due to diarrhea and normal saline, hyperkalemia, junctional rhythm now on amiodarone , Severe RA was on steroids before and mtx Her issues include * Acute renal failure with chronic kidney disease and patient has ischemic ATN in the setting of significant diarrhea * Severe acidosis most likely hyperchloremic acidosis due to diarrhea and saline with mild metabolic acidosis due to Ativan gap as well * Significant cortisol deficiency * Chronic kidney disease now with stage IV disease * Severe diarrhea with CT scan suggestive of gastroenteritis * Peripheral vascular disease with dry gangrene, with ultrasound showing severe SFA occlusion patient not a candidate for invasive workup * Ischemic heart disease in the past with paroxysmal atrial fibrillation now in junctional rhythm probably complicated by hyperkalemia * Sig electrolyte abnormality * Prob uti * Hypertension hypothyroidism * Severe anemia * SEvere RA was on steroid and prior MTX use RECOMMENDATION * Obvious deterioration without any improvement * Pt's wishes and family's wishes are to keep pt comfortable * They wish to proceed with comfort care and stop IVF and iv meds REc transfer to the floor Comfort care Dc all meds and ivf Use prn meds for comfort IF she gets worse can be transitioned to hopice service depending on the course DNR and DNI Pt is critically ill TTS 40 mins
--- NOTE | 2017-07-05 12:05 | PN- Cardiology ---
Subjective Subjective: Apparently, the patient has done slightly worse. Extended discussions have been had with the family and they are considering transitioning the patient to comfort measures. No change in cardiac status noted. Objective Vital Signs and I&Os Vital Signs Date Time Temp Pulse Resp B/P B/P Pulse O2 O2 Flow FiO2 Mean Ox Delivery Rate 07/05 0400 94 Room Air 07/05 0000 98.4 63 22 84/58 97 Room Air 07/05 0000 97 Room Air 07/04 2000 96 Room Air 07/04 1600 96 Room Air 07/04 1600 98.9 64 18 92/44 96 Room Air 07/04 1221 66 102/46 Intake & Output 07/05 1600 07/05 0800 07/05 0000 07/04 1600 07/04 0800 07/04 0000 Intake Total 925 1501 1356 720 350 Output Total 32 28 25 Balance 893 1473 1331 720 350 Intake, IV 925 1401 1206 720 300 Intake, Oral 100 150 50 Number 2 4 3 Bowel Movements Output, Urine 32 28 25 Patient 99 lb 1.99 oz 98 lb 2 oz Weight Weight Bed scale Bed scale Measurement Method Physical Exam: General: no acute distress: Sleeping; arousable Cardiovascular: S1-S2 regular, 1 to 2/6 systolic murmur Lung: Clear bilateral, no wheeze Abdomen: soft, positive bowel sounds Extremities: peripheral pulses palpable, trace pedal edema on left LE Current Medications: Current Medications Sig/Delphine Start time Last Medication Dose Route Stop Time Status Admin Acetaminophen 1,000 MG Q4 07/05 1400 AC 07/05 N/A 1 UNIT IV 07/06 0214 1136 Amiodarone HCl 200 MG DAILY 07/03 1000 DC 07/04 PO 1221 Atorvastatin Calcium 10 MG 1700 07/03 1700 DC 07/04 PO 1710 Ceftriaxone Sodium 1,000 MG Q24H 07/03 2030 DC 07/04 IV 07/05 0000 2117 Cilostazol 50 MG BID 07/02 2322 DC 07/03 PO 2049 Dextrose/Lactated 1,000 ML .[id number] 07/04 2300 DC 07/05 Ringer's IV 0652 Dextrose/Lactated 1,000 ML Q13H 07/04 1030 DC 07/04 Ringer's IV 1142 Hydrocortisone 50 MG Q8 07/03 2200 DC 07/05 Sodium Succinate IV 0657 Insulin Human Regular 0 Q6 07/04 1933 DC 07/05 SC 0708 Lactated Ringer's 500 ML .Q2H 07/04 1930 DC 07/04 IV 07/049 1915 Latanoprost 1 GTT AT BEDTIME 07/03 2199 DC 07/04 OPH 2249 Levothyroxine Sodium 0.05 MG DAILY AC 07/03 0700 DC 07/05 PO 0700 Melatonin 3 MG QPM 07/03 2200 DC 07/04 PO 2306 Mirtazapine 7.5 MG QPM 07/03 2200 DC 07/04 PO 2324 Omeprazole 20 MG DAILY AC 07/03 0700 DC 07/05 PO 0700 Sodium Bicarbonate 150 MEQ Q10H 07/04 1130 DC 07/04 Dextrose/Water 1,000 ML IV 1302 Timolol Maleate 1 GTT BID 07/02 2323 DC 07/04 OPH 2324 Results Last 48 Hrs of Labs/Mics: Laboratory Tests 07/05/17 0545: Anion Gap 13, Estimated GFR 10 L, Glucose 185 H, Calcium 6.8 L, Phosphorus 5.9 H, Magnesium 1.6, Total Bilirubin 0.3, AST 26, ALT 37, Albumin 1.7 L, CBC w Diff NO MAN DIFF REQ, RBC 3.03 L, MCV 87.7, MCH 28.7, MCHC 32.7 L, RDW 16.4 H, MPV 9.2, Gran % 78.0 H, Lymphocytes % 19.5 L, Monocytes % 1.9, Eosinophils % 0, Basophils % 0.6, Absolute Granulocytes 7.3 H, Absolute Lymphocytes 1.8, Absolute Monocytes 0.2, Absolute Eosinophils 0, Absolute Basophils 0.1 07/04/17 2100: Anion Gap 14, Estimated GFR 10 L, Glucose 226 H, Calcium 6.7 L, Phosphorus 6.6 H, Magnesium 1.6, Total Bilirubin 0.4, AST 27, ALT 42, Albumin 1.7 L 07/04/17 1145: Urinalysis LIGHT H, Urine Color YEL, Urine Clarity TURBD H, Urine pH 5.5, Ur Specific [place] >= 1.030, Urine Protein 100 H, Urine Ketones TRACE H, Urine Nitrite NEG, Urine Bilirubin NEG, Urine Urobilinogen 0.2, Ur Leukocyte Esterase LARGE H, Ur Microscopic SEDIMENT EXAMINED, Urine RBC 5-10 H, Urine WBC PACKD H, Ur Epithelial Cells FEW, Urine Bacteria MANY H, Micro UA Comment MORE INFO: H, Urine Hemoglobin LARGE H, Urine Glucose NEG 07/04/17 0800: Anion Gap 14, Estimated GFR 10 L, Glucose 169 H, Calcium 7.0 L, Phosphorus 7.3 H, Magnesium 1.7, Total Bilirubin 0.5, AST 31, ALT 41, Albumin 1.9 L 07/04/17 0427: Anion Gap 13, Estimated GFR 9 L, BUN/Creatinine Ratio 20.7, CBC w Diff NO MAN DIFF REQ, RBC 3.51 L, MCV 88.5, MCH 28.4, MCHC 32.1 L, RDW 16.8 H, MPV 9.2, Gran % 77.5 H, Lymphocytes % 21.7, Monocytes % 0.6 L, Eosinophils % 0, Basophils % 0.2, Absolute Granulocytes 6.3, Absolute Lymphocytes 1.8, Absolute Monocytes 0 L, Absolute Eosinophils 0, Absolute Basophils 0 07/03/17 2255: Lactic Acid 0.9 07/03/17 1920: Lactic Acid 1.0 Microbiology 07/04 144 UPPER RESP: Surveillance Culture - COMP 07/04 144 GI: Surveillance Culture - COMP 07/03 1999 STOOL: Clostridium difficile Toxin A & B - COMP Assessment/Plan Assessment/Plan Assessment: 1- CAD s/p stent 1996 2- CVA with no neurological deficit 3- paroxysmal atrial fibrillation currently in sinus rhythm 4- hyperlipidemia 5- hypothyroidism 6- chronic renal insufficiency 7- non anion gap metabolic acidosis with profound low bicarbonate 8- hypotension 9- diarrhea 10- hyperkalemia 11- suspected junctional rhythm Recommendations: -For now, continue as per the ICU/medical team. -In view of the potential change in status to comfort measures, cardiology will sign off the case for now. Please let us know if anything changes. Continue telemetry? Yes
[2017-07-05 16:00] VITALS: BP 80/40
[2017-07-05 22:00] VITALS: BP 90/50
[2017-07-06 07:50] VITALS: BP 98/50
--- NOTE | 2017-07-06 08:13 | PN- Housestaff ---
Subjective Follow-up For: JULES Hypotension Subjective: Patient seen and examined. Resting comfortably. Offers no complaints. Does not report any pain. Family at bedside emotional about patient's prognosis. Review of Systems Constitutional: Reports: see HPI. Objective Last 24 Hrs of Vital Signs/I&O Vital Signs Date Time Temp Pulse Resp B/P B/P Pulse O2 O2 Flow FiO2 Mean Ox Delivery Rate 07/06 0757 Room Air 07/06 0750 97.5 74 16 98/50 96 Room Air 07/06 0000 Room Air 07/05 2200 98.8 58 20 90/50 94 Room Air 07/05 1600 98.8 55 14 80/40 93 Room Air 07/05 1600 93 Room Air Intake & Output 07/06 1600 07/06 0800 07/06 0000 Intake Total 320 220 Output Total 150 200 Balance 170 20 Intake, IV 200 100 Intake, Oral 120 120 Output, Urine 150 200 Patient 103 lb Weight Weight Bed scale Measurement Method Physical Exam General Appearance: Alert, Oriented X3, Cooperative Skin: brusie on forehead Cardiovascular: Normal S1, Normal S2 Lungs: Clear to Auscultation Abdomen: Normal Bowel Sounds, Soft, No Tenderness Neurological: Normal Speech Extremities: No Edema Current Medications: Current Medications Sig/Delphine Start time Last Medication Dose Route Stop Time Status Admin Acetaminophen 1,000 MG Q4 07/05 1400 DC 07/06 N/A 1 UNIT IV 07/06 0214 0155 Diclofenac Sodium 1 GARCIA 4 TIMES/DAY PRN 07/05 2230 07/06 TOP 0042 Lidocaine 1 PAT DAILY PRN 07/05 2230 AC 07/06 EXT 0042 Morphine Sulfate 2 MG Q4P PRN 07/06 0215 AC 07/06 IV 0512 Assessment/Plan Assessment: Pt is an 86-year-old woman with a past medical history chronic kidney disease, severe peripheral vascular disease, questionable bilateral renal artery stenosis , paroxysmal atrial fibrillation, coronary artery disease and prior CVA. She presents to our hospital with symptoms of nausea and emesis as well as diarrhea for a period of approximately 2 weeks. She was noted to have acute kidney injury as well as hyperkalemia The patient was transferred to ICU overnight on 07/04 when she was found to have altered mental status with head CT results showing ''Small left cerebral convexity extra-axial fluid collection. Minimal dependent hyperattenuation suggests that this represents an acute on chronic subdural hematoma. This finding is new from 12/25/2016. Mild volume loss with small vessel ischemic changes. Chronic lacunar infarct in the right thalamus." Patient's blood pressure was also 80/40 Her cortisol level was also low therefore she was started on hydrocortisone 100 mg IV bolus followed by 50 mg IV q8 amd was agressively haydrated with NS to maintain BP The patient condition seems to be deteriorating. Her prognosis is guarded. The patient is DNR/DNI, family doesnot wish for pt to be on pressors. After discussion with the family the patient was converted to comfort care we are going to de-escalate care and keep pt comfortable. * Hospice evaluation today ------ The patient was treated and evaluated for following problems during her stay in ICU Respiratory #Pleural effusion seen on imaging Respiratory status Stable satting in 90s on room air Infection #Possible urinary tract infection Patient has been treated with multiple antibiotics in the past with a history of recurrent UTIs treated with antibiotics. Menard was placed on 07/05 gross pus came out. She presented with leukocytosis and moderate leukoesterase -Fever and WBC count was monitored patient was being managed on ceftriaxone Cardiology #CAD maintained on aspirin and statin #Atrial fibrillation maintained on amiodarone #Hypotension secondary to relative cortisol deficiency and Volume depletion Patient has history of rheumatoid arthritis is on chronic prednisone. She was found to be hypotensive rapid response called overnight. Her blood pressure was found to be 80/40, cortisone level were checked and found to be 7. Patient was given multiple boluses of normal saline in setting of volume depletion secondary to diarrhea and 100 mg IV Solu-Cortef for relative cortisol deficiency. Septic shock unlikely -maintained on hydrocortisone 50 every 8 -no aggressive Measure no central lines no pressors #Ischemic right foot Patient has history of right fifth toe gangrene, stable for years amputation has been offered in the past but patient refused plain x-ray did not show any evidence of vasculitis. Vascular surgery and podiatry consulted -With multiple comorbidities she wasnt candidate for vascularization at this point Hematology #Leukocytosis- Possible source urinary tract infection vs colitis versus diverticulitis #Chronic Anemia in setting of CKD H/H 03/05 around baseline Metabolic/Nephrology #Nonanion gap metabolic acidosis Patient had bicarbonate of 7 (her baseline around 10) her chloride 123, she had non-anion gap metabolic acidosis likely secondary to diarrhea, hyperchloremia due to normal saline infusion and cortisol deficiency. Her delta delta gap, less than 1 applying anion gap metabolic acidosis as well secondary to renal failure -Patient was initially hydrated with D5W + 150meq sodium bicarb @ 100cc/hr later maintained on D5W+ LR -Nephrology was also consulted patient was not a candidate of dialysis. 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 Her FEENA consistent with ATN -Patient was initially hydrated with D5W + 150meq sodium bicarb @ 100cc/hr later maintained on D5W+ LR #Hyperkalemia Secondary to JULES #Hyperphosphatemia Secondary to JULES #Hypocalcemia Likely secondary to hyperphosphatemia and setting of a JULES Alimantary #Diarrhea Patient presented with complaint of multiple bowel movements about 10. She has been having diarrhea for past 2 and half week. Etiology at this time is unclear. -C. difficile negative -Stool for Ova, parasites, Shigella, salmonella etc. negative, Culture mixed luz maria -CT scan abdomen and pelvis, limited study could not rule in or rule out infection just on its base because of the ascites #Diet regular diet was started but patient did not eat. Neurology #Chronic subdural hematoma Patient was transferred overnight for AMS, in setting of chronic subdural which would appear to be larger on film obtained a year ago. She has been evaluated by the neurosurgery -No Acute intervention at this point DVT Prophylaxis was maintained with Subcutaneous heparin 3 times a day CODE STATUS changed to comfort care Problem List: 1. JULES (acute kidney injury) Pain Ratin Pain Location: n/a Pain Goal: Remain pain free Pain Plan: prn Tomorrow's Labs & Rationales: n/a
--- NOTE | 2017-07-06 08:51 | PN- Att Addend ---
Attending Addendum Attending Brief Note Patient seen and examined. Level of care was changed to comfort care only by french translator Deandre Lafleur MD yesterday. Patient is currently lying in bed and does not appear to be in any acute distress. Daughter reports periods of moaning and groaning on occasion that is relieved with morphine IV. Daughter is at the bedside given. She unfortunately lost her brother just over a day ago. Vital Signs Date Time Temp Pulse Resp B/P B/P Pulse O2 O2 Flow FiO2 Mean Ox Delivery Rate 07/06 0757 Room Air 07/06 0750 97.5 74 16 98/50 96 Room Air 07/06 0000 Room Air 07/05 2200 98.8 58 20 90/50 94 Room Air 07/05 1600 98.8 55 14 80/40 93 Room Air 07/05 1600 93 Room Air General appearance: Not responsive, not in acute distress. Not in respiratory distress. Heart: S1-S2 regular Lungs: Clear to auscultation bilaterally. Abdomen: Soft and nontender with normal bowel sounds. Extremities: No pedal edema. Cool to touch. Stable necrosis right fifth toe. Problems: 1. Acute on chronic kidney disease. Now stage IV. 2. Adrenal insufficiency. 3. Severe diarrhea with CT suggestive of gastroenteritis. 4. Peripheral arterial disease with dry gangrene. 5. Paroxysmal atrial fibrillation Recommendations: -Patient has been transitioned to comfort care only by the french translator. -Obtain hospice consultation -Emotional support provided to the daughter and son-in-law at the bedside. -Continue medications as needed to provide comfort.
--- NOTE | 2017-07-06 14:50 | Discharge Summary ---
Visit Information Visit Dates Admission Date: 07/02/17 Discharge Date: 07/06/17 Hospital Course Course Attending Physician: Miquel BLANCO,Deandre Ralph Primary Care Physician: Pearl Boyle MD Hospital Course: Pt is an 86-year-old woman with a past medical history chronic kidney disease, severe peripheral vascular disease, questionable bilateral renal artery stenosis , paroxysmal atrial fibrillation, coronary artery disease and prior CVA. She presents to our hospital with symptoms of nausea and emesis as well as diarrhea for a period of approximately 2 weeks. She was noted to have acute kidney injury as well as hyperkalemia The patient was transferred to ICU overnight on 07/04 when she was found to have altered mental status with head CT results showing ''Small left cerebral convexity extra-axial fluid collection. Minimal dependent hyperattenuation suggests that this represents an acute on chronic subdural hematoma. This finding is new from 12/25/2016. Mild volume loss with small vessel ischemic changes. Chronic lacunar infarct in the right thalamus." Patient's blood pressure was also 80/40 Her cortisol level was also low therefore she was started on hydrocortisone 100 mg IV bolus followed by 50 mg IV q8 amd was agressively haydrated with NS to maintain BP The patient condition seems to be deteriorating. Her prognosis is guarded. The patient is DNR/DNI, family doesnot wish for pt to be on pressors. After discussion with the family the patient was converted to comfort care we de- escalated care and keept pt comfortable. Patient was evaluated by hospice and is being discharged to hospice service ------ The patient was treated and evaluated for following problems during her stay in ICU Respiratory #Pleural effusion seen on imaging Respiratory status Stable satting in 90s on room air Infection #Possible urinary tract infection Patient has been treated with multiple antibiotics in the past with a history of recurrent UTIs treated with antibiotics. Menard was placed on 07/05 gross pus came out. She presented with leukocytosis and moderate leukoesterase -Fever and WBC count was monitored patient was being managed on ceftriaxone Cardiology #CAD maintained on aspirin and statin #Atrial fibrillation maintained on amiodarone #Hypotension secondary to relative cortisol deficiency and Volume depletion Patient has history of rheumatoid arthritis is on chronic prednisone. She was found to be hypotensive rapid response called overnight. Her blood pressure was found to be 80/40, cortisone level were checked and found to be 7. Patient was given multiple boluses of normal saline in setting of volume depletion secondary to diarrhea and 100 mg IV Solu-Cortef for relative cortisol deficiency. Septic shock unlikely -maintained on hydrocortisone 50 every 8 -no aggressive Measure no central lines no pressors #Ischemic right foot Patient has history of right fifth toe gangrene, stable for years amputation has been offered in the past but patient refused plain x-ray did not show any evidence of vasculitis. Vascular surgery and podiatry consulted -With multiple comorbidities she wasnt candidate for vascularization at this point Hematology #Leukocytosis- Possible source urinary tract infection vs colitis versus diverticulitis #Chronic Anemia in setting of CKD H/H 03/05 around baseline Metabolic/Nephrology #Nonanion gap metabolic acidosis Patient had bicarbonate of 7 (her baseline around 10) her chloride 123, she had non-anion gap metabolic acidosis likely secondary to diarrhea, hyperchloremia due to normal saline infusion and cortisol deficiency. Her delta delta gap, less than 1 applying anion gap metabolic acidosis as well secondary to renal failure -Patient was initially hydrated with D5W + 150meq sodium bicarb @ 100cc/hr later maintained on D5W+ LR -Nephrology was also consulted patient was not a candidate of dialysis. 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 Her FEENA consistent with ATN -Patient was initially hydrated with D5W + 150meq sodium bicarb @ 100cc/hr later maintained on D5W+ LR #Hyperkalemia Secondary to JULES #Hyperphosphatemia Secondary to JULES #Hypocalcemia Likely secondary to hyperphosphatemia and setting of a JULES Alimantary #Diarrhea Patient presented with complaint of multiple bowel movements about 10. She has been having diarrhea for past 2 and half week. Etiology at this time is unclear. -C. difficile negative -Stool for Ova, parasites, Shigella, salmonella etc. negative, Culture mixed luz maria -CT scan abdomen and pelvis, limited study could not rule in or rule out infection just on its base because of the ascites #Diet regular diet was started but patient did not eat. Neurology #Chronic subdural hematoma Patient was transferred overnight for AMS, in setting of chronic subdural which would appear to be larger on film obtained a year ago. She has been evaluated by the neurosurgery -No Acute intervention at this point DVT Prophylaxis was maintained with Subcutaneous heparin 3 times a day CODE STATUS changed to Hospice Allergies: Coded Allergies: NO KNOWN ALLERGIES (02/15/11) Disposition Summary Disposition Principal Diagnosis: JULES on stage IV CKD with multiple electrolyte derangements Hypotension secondary to relative cortisol deficiency and Volume depletion Additional Diagnosis: Chronic subdural hematoma Discharge Disposition: hospice - medical facilit Discharge Instructions General Discharge Information Code Status: Hospice Patient's Diet: as tolerated Patient's Activity: as tolerated Follow-Up Instructions/Appts: n/a Copies To: Miquel BLANCO,Deandre Ralph; Tamar BLANCO,Pearl Roberson Attending MD Review Statement Documenting Attending: Deandre Lafleur MD
== END 2017-07-06 15:06 | disposition hospice, home (50) | DRG 682 ==
LOC: ERH 13:15 → 1NO 21:41 → CRI 21:41 → ERHI 21:41 → CANRESERV 22:11 → ENRESERV 22:11 → EDBEDREQ 23:15 → ERHI 07-03 07:22 → EDBEDREQ 07-03 07:40 → ENRESERV 07-03 10:59 → ENTRNSPT 07-03 11:42 → EDTRNSPT 07-03 12:06 → EDTRNSPTSTS 07-03 12:06 → CRI 07-03 12:13 → EDTRNSPT 07-03 12:13 → CMPTRNSPT 07-03 12:13 → 1NO 07-03 13:24 → CRI 07-04 01:23
PROVIDERS: Emergency Medicine; Internal Medicine; Internal Medicine Infectious Disease
DX: N17.0 Acute kidney failure with tubular necrosis (principal); I62.03 Nontraumatic chronic subdural hemorrhage; J90 Pleural effusion, not elsewhere classified; R64 Cachexia; I95.9 Hypotension, unspecified; E87.2 Acidosis; E87.5 Hyperkalemia; I07.0 Rheumatic tricuspid stenosis; E83.39 Other disorders of phosphorus metabolism; N39.0 Urinary tract infection, site not specified; Z68.1 Body mass index [BMI] 19.9 or less, adult; I48.0 Paroxysmal atrial fibrillation; E86.0 Dehydration; I70.1 Atherosclerosis of renal artery; L98.429 Non-pressure chronic ulcer of back with unspecified severity; D46.9 Myelodysplastic syndrome, unspecified; E03.9 Hypothyroidism, unspecified; I73.9 Peripheral vascular disease, unspecified; I12.9 Hypertensive chronic kidney disease with stage 1 through stage 4 chronic kidney disease, or unspecified chronic kidney disease; M06.9 Rheumatoid arthritis, unspecified; R74.8 Abnormal levels of other serum enzymes; Z51.5 Encounter for palliative care; N18.4 Chronic kidney disease, stage 4 (severe); K21.9 Gastro-esophageal reflux disease without esophagitis; E78.5 Hyperlipidemia, unspecified; I25.10 Atherosclerotic heart disease of native coronary artery without angina pectoris; Z98.61 Coronary angioplasty status; Z86.73 Personal history of transient ischemic attack (TIA), and cerebral infarction without residual deficits; R32 Unspecified urinary incontinence; K59.00 Constipation, unspecified; Z66 Do not resuscitate; H40.9 Unspecified glaucoma; G47.00 Insomnia, unspecified; R94.31 Abnormal electrocardiogram [ECG] [EKG]; Z79.82 Long term (current) use of aspirin; Z79.52 Long term (current) use of systemic steroids; I49.8 Other specified cardiac arrhythmias; K52.9 Noninfective gastroenteritis and colitis, unspecified; I25.2 Old myocardial infarction; D63.1 Anemia in chronic kidney disease; Z96.0 Presence of urogenital implants; I99.8 Other disorder of circulatory system; M62.272 Nontraumatic ischemic infarction of muscle, left ankle and foot
CPT/HCPCS: 1NSP; 84133; 84300; CCU; ERO; 36415; 36592; 71045; 73630-RT; 74176; 76775; 81001; 82436; 82570; 87040; 87045; 87086; 87088; 87328; 87329; 93005; 93010; 93306; 96374; J0131; J0696; J1644; J1720; J1815; J7040; J7042; J7060

== ENCOUNTER 2017-07-06 15:06 | Inpatient (IN) | payer OTHER ==
[~2017-07-06 15:06] MED LIST changes: +BETIMOL5 M1 OPH; +FLORASTOR250 M1 PO; +MELATONIN3 M4 PO
--- NOTE | 2017-07-06 15:54 | History & Physical ---
General Information and HPI Chief Complaint: Worsening renal failure. Failure to thrive. Source of Information: family, old records Exam Limitations: unable to give history (Hospice Patient- sedated) History of Present Illness: The patient is an 86 yo female with h/o CAD (stents), colitis, PUD, and CKD who presented originally admitted to medical service 07/02/17 with 2 week h/o diarrhea with serum creatinine having increased from 3.0 on 06/26 to 4.2. She was also noted to have significant PVD and CT angiogram had noted diminished blood flow to the RLE (possible need for amputation). The patient did not wish amputation. There was mention of amputation, however the patient and her daughter elected to decline aggressive treatment and requested comfort measures as an alternative. The patient had been at [facility] prior to onset of the current symptoms. Allergies/Medications Allergies: Coded Allergies: NO KNOWN ALLERGIES (02/15/11) Past History Medical History Blood Transfusion Hx: No Type of Reaction: Rash/Dermatitis Neurological: CVA EENT: NONE Cardiovascular: AFIB, CAD, hyperlipidemia, myocardial infarction, PVD Respiratory: NONE Gastrointestinal: colitis, constipation, GERD, peptic ulcer disease Hepatic: NONE Renal: nephrolithiasis, urinary incontinence, she had urinary obstruction in the past requiring placement of stents she also had an episode of sepsis of urinary origin. This required transfer to the ICU. renal artery stenosis Musculoskeletal: rheumatoid arthritis (diagnosed in 1993), sciatica Psychiatric: NONE Endocrine: hypothyroidism Blood Disorders: anemia, biopsy-proven myelodysplastic syndrome Cancer(s): NONE WILD ANIMAL CARETAKER/Reproductive: deferred Other Medical Hx: Rheumatoid arthritis History of MRSA: No History of VRE: No History of CDIFF: No Isolation History: Standard Influenza Vaccine: 02/12/17 Surgical History: Appendectomy, etc. Surgical History Surgical History: appendectomy, cataract removal, ureteral stent placement multiple cardiac stents Past Family/Social History Family History: No relevant illnesses. Review of Systems Review of Systems Constitutional: Reports: malaise, weakness. EENTM: Denies: no symptoms. Cardiovascular: Denies: no symptoms. Respiratory: Reports: cough. GI: Denies: no symptoms. Genitourinary: Denies: no symptoms. Musculoskeletal: Reports: back pain. Skin: Denies: no symptoms. Neurological/Psychological: Reports: anxiety. Post Menopausal: No Exam & Diagnostic Data Last 24 Hrs of Vital Signs/I&O See nursing notes. T 97.5, P 74, R 16, BP 98/50, PO 96% RA Heent: Head- NCAT, eyes- , Diane- dry mucosa Neck: no JVD, no adenopathy Chest: clear, diminished at bases. Cor: RR, tachy, nl S1, S2/ Abd: BS+, soft, minimal right flank discomfort as you are able. Ext: No edema, pules qare 3_ Physical Exam General Appearance Cooperative (SEDATED WIH MORPHINE) Skin No Breakdown HEENT EOMI, Mucous Membr. moist/pink Neck Supple, No JVD, No LAD Cardiovascular Regular Rate, Normal S1, Normal S2, No Murmurs Lungs Clear to Auscultation, Normal Air Movement Abdomen Normal Bowel Sounds, Soft, No Tenderness (SLIGHTLY DISTENDED) Neurological Normal Tone, Sensation Intact, Cranial Nerves 3-12 NL, Reflexes 2+ Extremities No Clubbing, No Cyanosis, No Edema, Normal Pulses, No Tenderness/ Swelling Vascular Normal Pulses, Pulses Symmetrical Assessment/Plan Assessment: Impression/Plan: #Acute on Chronic CKD- with worsening renal failure and indolent course as above in hospital. Family now wishes comfort measures/Hospice care. Plan: Admit to Hospice Service. IV Morphine/Ativan, Scopolamine, Robanul as per prior routines. Maintain comfort. #CAD/NH/Afib/PVD- the patient appears being comfortable. Plan: Continue current meds. #H/O Rheumatoid Arthritis- has been on pain meds. Plan: Continue Morphine as pain med in Hospice pathway. #H/O Myelodysplastic Syndrome- ? from patient family. Plan; Continue to encourage daily bowel movements. Plan: As above.
--- NOTE | 2017-07-06 23:49 | Admission Certification ---
Admission Certification Certification Statement - As attending physician, I certify that at the time of - admission, based on clinical presentation, severity of - symptoms, need for further diagnostic testing and - therapeutic interventions, and risk of adverse outcomes - without in-hospital treatment, in my clinical assessment, - this patient requires an acute hospital stay for a minimum - of two nights or longer. I have also considered psychsocial - factors such as support system, advanced age, financial - issues, cognitive issues, and failed out-patient treatments, - past re-admission history, safety of patient, and lack of - compliance as applicable. Specific rationale supporting this admission is: Patient admitted to Hospice service with worening renal failure, poor progronsis , PVD (not surgical candidate), CAD. Will give IF Morpine/Ativan as per protocol.
[2017-07-07 06:46] VITALS: BP 100/58
[2017-07-07 06:52] VITALS: BP 100/58
[2017-07-07 07:04] VITALS: BP 100/58
--- NOTE | 2017-07-07 09:50 | PN- Att Addend ---
Attending Addendum Attending Brief Note Patient was admitted to hospice care yesterday. Currently lying comfortably in bed not in any acute distress. Daughter and son-in-law are present at the bedside. Emotional support was provided. Family reports that patient occasionally moves her head in response to questions. She is nonverbal. She is not eating or drinking. Vital Signs Date Time Temp Pulse Resp B/P B/P Pulse O2 O2 Flow FiO2 Mean Ox Delivery Rate 07/07 0704 97.2 63 20 100/58 96 Room Air / 0652 97.2 63 20 100/58 96 Room Air / 0646 97.2 63 20 100/58 96 Room Air General appearance: Not in acute distress. Heart: S1-S2 regular Lungs: Clear bilaterally. Abdomen: Soft and nontender with normal bowel sounds Extremities: No pedal edema Skin: Intact with no rashes. Problems: 1. Acute on chronic kidney disease. Now stage IV. 2. Adrenal insufficiency. 3. Severe diarrhea with CT suggestive of gastroenteritis. 4. Peripheral arterial disease with dry gangrene. 5. Paroxysmal atrial fibrillation Plan: -Continue current hospice regimen. -Daughter and son-in-law verbalizes full understanding that patient is actively dying. Be aware that her condition only continued to decline until she eventually passes away. They are in agreement with the plan to focus on keeping the patient comfortable.
[2017-07-08 06:19] VITALS: BP 86/54
--- NOTE | 2017-07-08 14:58 | PN- Hospice ---
Subjective Subjective: Pt. appears comfortable. Received morphine x 1 and no ativan overnight. No oral intake, minimal urine output. Review of Systems Constitutional: Reports: see HPI. Objective Last 24 Hrs of Vital Signs/I&O Vital Signs Date Time Temp Pulse Resp B/P B/P Pulse O2 O2 Flow FiO2 Mean Ox Delivery Rate 07/08 618 97.3 62 20 86/54 98 Room Air Intake & Output 07/08 1600 07/08 0800 07/08 0000 Intake Total 0 0 20 Output Total 10 0 50 Balance -10 0 -30 Intake, IV 0 20 Intake, Oral 0 0 0 Number 0 Bowel Movements Output, Urine 10 0 50 Physical Exam General Appearance: no apparent distress, sedated Head: ecchymosis (over left eye) Ears, Nose, Throat: oral mucosa dry Respiratory: no respiratory distress, effort normal, no congestion Cardiovascular: regular rate/rhythm Abdomen: soft, non-tender Extremities: mottling bilat. feet, necrotic right 5th toe; bilat. edemetous UEs Current Medications: Current Medications Sig/Delphine Start time Last Medication Dose Route Stop Time Status Admin Acetaminophen 650 MG Q4P PRN 07/06 1600 AC NE Artificial Tears 2 GTT Q2P PRN 07/06 1600 AC OU Bisacodyl 10 MG DAILY NEEDED PRN 07/06 1600 AC NE Glycerin 2 SPRAY Q4P PRN 07/06 1600 AC PO Glycerin/Mineral Oil 1 GARCIA Q8P PRN 07/06 1600 AC TOP Glycopyrrolate 400 MCG Q4P PRN 07/06 1600 AC SC Lorazepam 0.5 MG Q4 PRN 07/06 1600 AC 07/07 IV 1731 Morphine Sulfate 2 MG Q2P PRN 07/06 1615 AC 07/08 IV 0707 Scopolamine HBr 1 PAT Q72 PRN 07/06 1600 AC TOP Assessment/Plan Hospice Assessment/Recommendations: 86-year-old female with acute on chronic kidney disease, severe diarrhea with dehydration (thought 2/2 gastroenteritis), PAD with dry gangrene right foot admitted to hospice care. Comfortable. Continue as needed meds.
[2017-07-09 06:27] VITALS: BP 74/50
--- NOTE | 2017-07-09 12:25 | PN- Hospice ---
Subjective Subjective: Pt. appears comfortable, unresponsive. Has received morphine x 1 since midnight , no ativan. No oral intake, little urine output. Review of Systems Constitutional: Reports: see HPI. Objective Last 24 Hrs of Vital Signs/I&O Vital Signs Date Time Temp Pulse Resp B/P B/P Pulse O2 O2 Flow FiO2 Mean Ox Delivery Rate 07/09 626 97.1 68 12 74/50 87 Room Air Intake & Output 07/09 1600 07/09 0800 07/09 0000 Intake Total 0 0 Output Total 0 50 Balance 0 -50 Intake, Oral 0 0 Output, Urine 0 50 Physical Exam General Appearance: no apparent distress, sedated Head: ecchymosis (above left eye) Ears, Nose, Throat: oral mucosa dry Respiratory: no respiratory distress, quiet respiration, no congestion, RR 12 and unlabored Cardiovascular: regular rate/rhythm Extremities: mottling to bilat feet with right 5th digit necrotic Other Physical Findings: goddard with small amount purulent drainage Current Medications: Current Medications Sig/Delphine Start time Last Medication Dose Route Stop Time Status Admin Acetaminophen 650 MG Q4P PRN 07/06 1600 AC FL Artificial Tears 2 GTT Q2P PRN 07/06 1600 AC OU Bisacodyl 10 MG DAILY NEEDED PRN 07/06 1600 AC FL Glycerin 2 SPRAY Q4P PRN 07/06 1600 AC PO Glycerin/Mineral Oil 1 GARCIA Q8P PRN 07/06 1600 AC 07/09 TOP 0007 Glycopyrrolate 400 MCG Q4P PRN 07/06 1600 AC SC Lorazepam 0.5 MG Q4 PRN 07/06 1600 AC 07/07 IV 1731 Morphine Sulfate 2 MG Q2P PRN 07/06 1615 AC 07/09 IV 0331 Patient Medication 1 ED ONE ONE 07/08 1615 DC 07/08 Teaching ED 07/08 1616 1954 Scopolamine HBr 1 PAT Q72 PRN 07/06 1600 AC TOP Assessment/Plan Hospice Assessment/Recommendations: 86-year-old female with acute on chronic kidney disease, severe diarrhea with dehydration (thought 2/2 gastroenteritis), PAD with dry gangrene right foot admitted to hospice care. Comfortable, continue same medications and supportive care.
--- NOTE | 2017-07-10 06:21 | Discharge Summary ---
See Addendum Visit Information Visit Dates Admission Date: 07/06/17 Discharge Date: 07/10/17 Hospital Course Course Attending Physician: Pedro Aranda MD Primary Care Physician: Pearl Boyle MD Hospital Course: 86-year-old female with acute on chronic kidney disease, severe diarrhea with dehydration (thought 2/2 gastroenteritis), PAD with dry gangrene right foot admitted to hospice care. Allergies: Coded Allergies: NO KNOWN ALLERGIES (02/15/11) Disposition Summary Disposition Principal Diagnosis: Acute kidney injury chronic kidney disease Additional Diagnosis: dehydration gastroenteritis peripheral artery disease dry gangrene right foot Discharge Disposition: Discharge Instructions General Discharge Information Code Status: Hospice Patient's Diet: N/A Patient's Activity: N/A Follow-Up Instructions/Appts: N/A Copies To: Pearl Boyle MD Attending MD Review Statement Documenting Attending: Pedro Aranda MD Other Findings: Agree with the above summary of care.
== END 2017-07-10 04:58 | disposition expired | DRG 683 ==
LOC: CRI 15:06 → 2NA 18:02
DX: N17.9 Acute kidney failure, unspecified (principal); I96 Gangrene, not elsewhere classified; I48.91 Unspecified atrial fibrillation; E86.0 Dehydration; D64.9 Anemia, unspecified; R62.51 Failure to thrive (child); M06.9 Rheumatoid arthritis, unspecified; E03.9 Hypothyroidism, unspecified; D46.9 Myelodysplastic syndrome, unspecified; I25.10 Atherosclerotic heart disease of native coronary artery without angina pectoris; K21.9 Gastro-esophageal reflux disease without esophagitis; Z51.5 Encounter for palliative care; Z86.73 Personal history of transient ischemic attack (TIA), and cerebral infarction without residual deficits; I25.2 Old myocardial infarction; N18.4 Chronic kidney disease, stage 4 (severe); K52.9 Noninfective gastroenteritis and colitis, unspecified